=== PATIENT | female | born 1945 | race Caucasian/White ===

== ENCOUNTER → 2017-05-27 15:45 | Outpatient (CLI) | payer MEDICARE, BC ==
[~2017-05-27 15:45] MED LIST: ACETAMINOPHEN500 M1 PO; ADVAIR 100/501 DISK INH; BAYER CHEWABLE81 MG PO; BENTYL10 MG; BENTYL10 MG PO; COLACE100 MG PO; COSOPT EYE DROPS5 ML EACH EYE; DULCOLAX10 MG/SUPP RC; FLEXERIL10 MG PO; FLUTICASONE PRO16 GM NS; HYZAAR 100-12.51 TAB PO; LEVSIN/ANASP0.125 MG PO; LIPITOR40 MG PO; MACROBID100 MG PO; MIRALAX17 GM PO; MUCINEX600 MG PO; NEURONTIN 400400 MG; NEURONTIN 400400 MG PO; NITROSTAT0.4 MG; NITROSTAT0.4 MG SL; PLAVIX75 MG PO; PRILOSEC20 MG PO; REQUIP1 MG PO; RESTORIL15 MG PO; SENOKOT-S TABLE1 TAB PO; SYNTHROID150 MCG PO; TENORMIN25 MG PO; TRAVATAN Z2.5 ML EACH EYE; TYLENOL W/CODEI1 TAB PO; ULTRAM50 MG PO; VESICARE5 MG PO; XANAX0.5 MG PO
== END | disposition home or self-care (01) ==
LOC: D.CT 15:45
DX: H53.2 Diplopia (principal); M54.2 Cervicalgia; W19.XXXA Unspecified fall, initial encounter

== ENCOUNTER → 2017-12-08 09:19 | Outpatient (CLI) | payer MEDICARE, BC | END | disposition home or self-care (01) | LOC: D.CT 09:19 | DX: R10.9 Unspecified abdominal pain (principal); R63.4 Abnormal weight loss ==

== ENCOUNTER → 2018-02-15 08:42 | Outpatient (CLI) | payer MEDICARE, BC | END | disposition home or self-care (01) | LOC: D.LAB 08:42 → D.RAD 09:00 | DX: R11.2 Nausea with vomiting, unspecified (principal) ==

== ENCOUNTER → 2018-03-11 10:53 | Outpatient (CLI) | payer MEDICARE, BC | END | disposition home or self-care (01) | LOC: D.NM 10:53 | DX: R11.0 Nausea (principal); R10.13 Epigastric pain ==

== ENCOUNTER → 2019-06-05 10:37 | Outpatient (CLI) | payer MEDICARE, BC ==
[2019-06-05 11:30] LABS: ALBUMIN 3.4 g/dL (3.4-5.0); BILIRUBIN - DIRECT 0.19 mg/dL (0.00-0.30); BILIRUBIN - INDIRECT 0.5 mg/dL (0.00-1.00); BILIRUBIN - TOTAL 0.69 mg/dL (0.2-1.3); PROTEIN - SERUM 6.3 g/dL (6.4-8.2)
[2019-06-06 10:10] LABS: HEPATITIS C ANTIBODY 0.1 S/CO RAT (0.0-0.9)
== END | disposition home or self-care (01) ==
LOC: D.LAB 10:37 → D.US 11:30
PROVIDERS: ATTEND Internal Medicine Gastroenterology
DX: R10.13 Epigastric pain (principal); R11.2 Nausea with vomiting, unspecified

== ENCOUNTER → 2019-06-14 08:06 | Outpatient (CLI) | payer MEDICARE, BC | END | disposition home or self-care (01) | LOC: D.NM 08:06 | PROVIDERS: ATTEND Internal Medicine Gastroenterology | DX: R10.31 Right lower quadrant pain (principal); R11.0 Nausea; K82.9 Disease of gallbladder, unspecified ==

== ENCOUNTER → 2019-07-03 08:28 | Outpatient (CLI) | payer MEDICARE, BC ==
[~2019-07-03 08:28] MED LIST changes: +ANTIVERT12.5 MG PO; +CYCLOBENZAPRINE10 MG PO; +HYDROCODON-ACE1 EA10 PO; +NEURONTIN 300300 MG PO; +PEPCID40 MG PO; +PROTONIX40 MG PO; +SYNTHROID100 MCG PO; -SYNTHROID150 MCG PO; +TRAZODONE HCL150 MG PO
== END | disposition home or self-care (01) ==
LOC: D.CT 08:28
PROVIDERS: ATTEND Internal Medicine Gastroenterology
DX: R10.12 Left upper quadrant pain (principal)

== ENCOUNTER → 2019-07-13 09:00 | Outpatient (CLI) | payer MEDICARE, BC ==
[~2019-07-13 09:00] MED LIST changes: -HYDROCODON-ACE1 EA10 PO
== END | disposition home or self-care (01) ==
LOC: D.LAB 09:00
PROVIDERS: ATTEND Surgery
DX: R10.9 Unspecified abdominal pain (principal); R74.8 Abnormal levels of other serum enzymes

== ENCOUNTER 2019-08-07 10:06 | Inpatient (IN) | payer MEDICARE, BC ==
[~2019-08-07] VITALS: Ht 165.1 cm; Wt 88.7 kg
[~2019-08-07 10:06] MED LIST changes: -ANTIVERT12.5 MG PO; -CYCLOBENZAPRINE10 MG PO; -HYZAAR 100-12.51 TAB PO; +HYZAAR PO; -NEURONTIN 300300 MG PO; -PEPCID40 MG PO; -PROTONIX40 MG PO; -TRAZODONE HCL150 MG PO
[2019-08-07 11:11] LABS: BASOPHILS 0.4 % (0-2); EOSINOPHILS 3.7 % (0-7); HEMOGLOBIN 13.9 g/dL (12-16); IMMATURE GRANULOCYTES 0.1 % (0-5); LYMPHOCYTES 40.6 % (15-50); MCH 32.3 pg (26.0-34.0); MCHC 33.9 g/dL (31.0-37.0); MCV 95.1 fL (80.0-100.0); MEAN PLATELET VOLUME 10.1 fL (7.4-10.4); MONOCYTES 7.4 % (2-11); NEUTROPHILS 47.8 % (40-80); RBC 4.31 10x6/uL (4.00-5.40); RDW 13.4 % (11.5-14.5); WBC 10.6 10x3/uL (4.8-10.8)
[2019-08-07 11:17] LABS: PLATELET COUNT 281 10x3/uL (130-400)
[2019-08-07 11:19] LABS: ANION GAP 7.4 mmol/L (8-16); CALCIUM 9.2 mg/dL (8.5-10.1); CARBON DIOXIDE 34.6 mmol/L (21.0-32.0)
[2019-08-07] MEDS ORDERED: PROTONIX40 MG PO (12:14)
[2019-08-07] MEDS ORDERED: CYCLOBENZAPRINE10 MG PO (12:17)
[2019-08-07] MEDS ORDERED: TRAZODONE HCL150 MG PO (12:19)
[2019-08-07] MEDS ORDERED: NEURONTIN 300300 MG PO (12:22)
[2019-08-07] MEDS ORDERED: REQUIP1 MG PO (12:23)
[2019-08-07] MEDS ORDERED: ANTIVERT12.5 MG PO (12:24)
[2019-08-08] VITALS (36 sets, daily range): BP systolic 80–160; BP diastolic 39–76; BMI 29.1; BMI 32.6
[2019-08-08] MEDS ORDERED: PEPCID40 MG PO (06:02)
--- NOTE | 2019-08-08 11:20 | NUR ---
report recieved from tanesha duron.
--- NOTE | 2019-08-08 11:30 | NUR ---
patient arrived to unit.
--- NOTE | 2019-08-08 11:59 | NUR ---
WHEN PT ARRIVED WE WERE UNABLE TO OBTAIN BP R/T PT MOVING AROUND TOO MUCH AND BEING RESTLESS AND COULD NOT OBTAIN, WHEN PT FINALLY STARTED TO BE STILL BP CUFF WOULD NOT READ. ANESTHESIA AT BEDSIDE THE ENTIRE TIME. FINALLY OBTAINED BP AND IT WAS LOW, INTERVENTIONS TAKING PLACE, SEE VITAL FLOWSHEET AND MED FLOW FOR DETAILS. NEW ORDERS OBTAINED FOR PT TO GO TO ICU FOR BP SUPPORTIVE MEDICATIONS. PT IS ON DOPAMINE DRIP AT THIS TIME 5MG/KG/MIN. PT REMAINS AWAKE AND TALKATIVE JUST C/O PAIN IN HER ABDOMEN FROM THE PROCEDURE, UNABLE TO PROVIDE RELIEF AT THIS TIME BUT DID REPOSITION AND IT SEEMED TO HELP SLIGHTLY. BP IN LEFT LEG HAD BETTER READINGS COMPARED TO LEFT ARM HOWEVER PT REMAINS HYPOTENSIVE ON DRIP. WILL TRANSFER TO ICU AND CALL REPORT. AWARE AND AGREES. NO CURRENT NEEDS.
--- NOTE | 2019-08-08 13:00 | NUR ---
PATIENT EASILY AROUSES. EDUCATED ON PIPE INSTALLER. DOPAMINE INFUSION. NO DISTRESS. STATES PAIN IS UNDER CONTROL WITH PUMP. VSS. AFEBRILE. ZOFRAN GIVEN PER COMPLAINTS OF NAUSEA. FAMILY IS AT BEDSIDE. WENT OVER HOME MEDICATIONS WITH COUSIN EVLEYN. WILL CONTINUE TO MONITOR.
--- NOTE | 2019-08-08 15:25 | NUR ---
patient is alert and oriented. states pain is under control. no n/v. educated on what Ng tube is for. educated on why NPO. dopamine 10mcg. no distress. reassesment done. pulses palp. lungs CTA. bp 112/61. hr 57. 100% on 3 l nc. will continue to monitor pt.
--- NOTE | 2019-08-08 17:00 | NUR ---
PT IS RESTING. RELIEF OF PAIN. NO DISTRESS. NO CHANGES. PULSES PALP BILAT. LUNGS CTA. MANN 200. DOPAMINE OFF. BP STABLE. 66 HR. 3 L NC 100%. REPORT GIVEN TO EMILY. WILL CONTINUE TO MONITOR.
[2019-08-08 18:39] LABS: HEMATOCRIT 34.7 % (36.0-48.0); HEMOGLOBIN 11.8 g/dL (12-16)
--- NOTE | 2019-08-08 19:00 | NUR ---
PT ALERT, VOICES NEEDS, LUNGS CLEAR, O2 @ 3L VIA N/C, RIGHT PIV INTACT WITH DILAUDID AOC AIRSPACE CONTROL OFFICER AND NS @ 125 CC/HR, ABDOMINAL INCISION WITH DRSG C/D/I, MANN PATENT TO BSD, NGT TO LIS, NO DISTRESS NOTED
--- NOTE | 2019-08-08 21:00 | NUR ---
RESTING QUIETLY, VITALS STABLE, NO C/O
[2019-08-08 22:30] LABS: HEMATOCRIT 33.3 % (36.0-48.0); HEMOGLOBIN 11.3 g/dL (12-16)
--- NOTE | 2019-08-08 23:00 | NUR ---
PT AWAKENED CONFUSED, STATES SHE WAS HAVING A DREAM, REORIENTS EASILY, VITALS STABLE
[2019-08-09] VITALS (24 sets, daily range): BP systolic 120–175; BP diastolic 49–84; Ht 165.1 cm; Wt 88.7 kg
--- NOTE | 2019-08-09 01:00 | NUR ---
PT SLEEPING WITH NO DISTRESS, AROUSES EASILY, VITALS STABLE
--- NOTE | 2019-08-09 03:45 | NUR ---
PT AWAKE, PULLED OUT NGT AND MANN, STATES SHE IS SORRY, THAT SHE WAS HAVING A BAD DREAM, PT TEARFUL, VITALS STABLE, WILL CONT TO MONITOR
[2019-08-09 04:11] LABS: HEMATOCRIT 30.8 % (36.0-48.0); HEMOGLOBIN 10.4 g/dL (12-16); MCHC 33.8 g/dL (31.0-37.0); MCV 94.8 fL (80.0-100.0); MEAN PLATELET VOLUME 10.4 fL (7.4-10.4); PLATELET COUNT 271 10x3/uL (130-400); RBC 3.25 10x6/uL (4.00-5.40); RDW 13.5 % (11.5-14.5); WBC 23.4 10x3/uL (4.8-10.8)
[2019-08-09 04:17] LABS: ANION GAP 10.7 mmol/L (8-16); CALCIUM 8.7 mg/dL (8.5-10.1); CARBON DIOXIDE 29.5 mmol/L (21.0-32.0); POTASSIUM - SERUM 4.2 mmol/L (3.5-5.1)
[2019-08-09 04:53] LABS: LYMPHOCYTES 38 % (15-50); MONOCYTES 2 % (2-11); NEUTROPHILS 55 % (40-80); PLATELET ESTIMATE NORMAL
--- NOTE | 2019-08-09 05:30 | NUR ---
PT CALM, RESTING QUIETLY, GETS TEARFUL AT TIMES, REASSURED PT THAT IT WAS OKAY AND MD WOULD BE NOTIFIED, VITALS STABLE
--- NOTE | 2019-08-09 06:13 | NUR ---
PAGED DR CHARLES, CALL RETURNED, INFORMED HIM OF PT PULLING OUT NG TUBE AND MANN, INSTRUCTED NOT TO PUT NG TUBE BACK IN, HE WILL INFORM DR MOBLEY
--- NOTE | 2019-08-09 08:07 | NUR ---
PATIENT ALERT AND ORIENTED. VERY APOLOGETIC ABOUT REMOVING HER MANN AND NG TUBE. CL IN REACH. PULSE OX MONITOR REPOSITIONED. NO NEEDS AT THIS TIME. WILL CONTINUE TO MONITOR.
--- NOTE | 2019-08-09 09:55 | NUR ---
PATIENT HAS SAID SHE WOULD LIKE A BED BATH. LINENS CHANGED DUE TO A LEAK IN IV LINE. IV LINES, TELEMETRY WIRES, PULSE OX WIRES, AND BP HOSE REPOSITIONED. PATIENT ASSISTED WITH BEDPAN. UNABLE TO URINATE. SHE IS NOW RESTING ON HER BACK. CL IN REACH.MOUTH MOISTURIZER PROVIDED FOR DRY AND CRACKED LIPS. NO FURTHER NEEDS AT THIS TIME
--- NOTE | 2019-08-09 10:25 | NUR ---
PATIENT YELLING OUT HELP ME. PULSE OX WAS OFF HER EAR AND THE MACHINE WAS BEEPING. SHE ALSO THOUGHT HEARD HER COUSIN. THEN GOES SHE GUESSES SHE DIDN'T AND NOW WHAT DO WE DO. I TOLD HER WE CAN TAKE A BED BATH JUST TO GIVE ME A MIN. SHE WAS AGREEABLE TO THAT. CL IN REACH [facility]
--- NOTE | 2019-08-09 11:35 | NUR ---
UPDATED COUSIN ON THE PHONE. HAD THE PASSWORD. SAID SHE HASN'T BEEN UP HERE YET BECAUSE OF HER RA. WAS CONCERNED FOR PT REMOVING NG TUBE AND MANN. I EXPLAINED IT HAPPENED OFTEN AND WAS NO PROBLEM. SAID SHE WOULD BE UP HERE SHORTLY
--- NOTE | 2019-08-09 11:58 | NUR ---
PULSE OX REPOSITIONED TO READ. BP CUFF REPOSTIONED TO LEFT UPPER ARM FOR MORE ACCURATE BP. BP IN LEG WAS RECORDED AT 212/69. REPOSITIONED IT WAS 144/47. PATIENT JUST YELLED OUT THAT SHE WAS IN PAIN. I RESPONDED SHE COULD HIT THE GREEN BUTTON THAT THE PAIN BUTTON WAS LIT UP AND ABLE TO GIVE HER A DOSE. IT WAS ATTACHED TO THE RIGHT BED RAIL. SHE RESPONDED THAT SHE WASN'T ABLE TO REACH IT. I UNTIED IT AND HANDED IT TO HER. CL IN REACH. WCTM
--- NOTE | 2019-08-09 13:06 | NUR ---
BLADDER SCANNED PATIENT. REPORTED THERE WAS 698 ML IN THE BLADDER AND PATIENT HAS NOT URINATED SINCE 329 SINCE REMOVAL OF MANN OVERNIGHT TO DR MOBLEY. HE ORDERED ANOTHER MANN PLACED
--- NOTE | 2019-08-09 13:35 | NUR ---
PLACED MANN CATH. 2 ATTEMPTS. STERILE FIELD MAINTAINED. PATIENT TOLERATED PROCEDURE WELL. NO FURTHER NEEDS AT THIS TIME. CL IN REACH. WCTM
--- NOTE | 2019-08-09 15:08 | NUR ---
PATIENT REQUESTS SUPPLIES TO BRUSH TEETH. I WILL GIVE THEM WHEN LAB GETS OUT OF THE ROOM SO I CAN PROVIDE MINIMAL ASSIST.
--- NOTE | 2019-08-09 15:58 | NUR ---
BEDISDE REPORT RECIEVED. NO NEEDS OR DISTRESS NOTED AT THIS TIME. WILL CONT TO MONITOR.
[2019-08-09 16:02] LABS: HEMATOCRIT 27.5 % (36.0-48.0); HEMOGLOBIN 9.2 g/dL (12-16)
--- NOTE | 2019-08-09 17:00 | NUR ---
FAMILY AT BEDSIDE. NO NEEDS OR DISTRESS NOTED AT THIS TIME. WILL CONT TO MONITOR.
--- NOTE | 2019-08-09 18:26 | MORECARE ---
CASE MANAGEMENT DISCHARGE SUMMARY PATIENT: LAILA BUCKNER UNIT: [id number] ADM DATE: 08/08/19 AGE: 73 : 45 SEX: F ROOM/BED: D.2310 AUTHOR: MIKEY CASTILLO PHYSICIAN: REFERRING PHYSICIAN: ALAN MOBLEY MD DATE OF SERVICE: 08/09/19 Discharge Plan Patient Name: LAILA BUCKNER Facility: [facility]:[place] : 1945 Planned Disposition: Home Anticipated Discharge Date: Discharge Date: Expected LOS: Initial Reviewer: [email or web address] Initial Review Date: 08/08/2019 Generated: 08/09/19 7:25 pm Patient Name: LAILA BUCKNER Page [phone] at 1826 All edits/amendments must be made on the electronic document DICTATION DATE: 08/09/191824 INDUSTRIAL PSYCHOLOGY PROFESSOR: ERIN 08/09/191824 RPT#: [id number] DC DATE: STATUS: ADM IN [facility] [address] [place] [address] END OF REPORT
--- NOTE | 2019-08-09 18:34 | MORECARE ---
CASE MANAGEMENT DISCHARGE SUMMARY PATIENT: LAILA BUCKNER UNIT: [id number] ADM DATE: 08/08/19 AGE: 73 : 45 SEX: F ROOM/BED: D.2310 AUTHOR: ANNADOC PHYSICIAN: REFERRING PHYSICIAN: ALAN MOBLEY MD DATE OF SERVICE: 08/09/19 Discharge Plan Patient Name: LAILA BUCKNER Facility: [facility]:[place] : 1945 Planned Disposition: Home Anticipated Discharge Date: Discharge Date: Expected LOS: Initial Reviewer: [email or web address] Initial Review Date: 08/08/2019 Generated: 08/09/19 7:34 pm Comments DCP- Discharge Planning Updated by [email or web address]: Edita Lora on 08/09/19 5:[address] Patient Name: LAILA BUCKNER Admission Status: Urgent Accout number: [id number] Admission Date: 08-08-2019 : 1945 Admission Diagnosis: Attending: ALAN MOBLEY Current LOS: 1 Anticipated DC Date: Planned Disposition: Home Primary Insurance: MEDICARE A & B Discharge Planning Comments: CM met with patient to complete initial dc planning assessment. CM educated patient on the CM role and verbal consent given by patient to complete assessment. Patient lives at home alone where she is independent with her care. At discharge patient plans to return home and feels this is a safe discharge. CM discussed availability of home health, rehab services, and medical equipment. Patient is requesting a walker upon discharge. Patient denied any other known discharge needs at this time. CM will continue to follow and will assist as needed with dc plans/needs. Water Taxi Driver: Edita Lora DCPIA - Discharge Planning Initial Assessment Updated by [id number]: Edita Lora on 08/09/19 6:27 pm * Is the patient Alert and Oriented? Yes * How many steps to enter\exit or inside your home? * PCP [facility] * Pharmacy [facility] * Preadmission Environment Home Alone * ADLs Independent * Other Equipment REQUESTING A WALKER * List name and contact numbers for known caregivers / representatives who currently or will assist patient after discharge: LAVERNE MENDOZA [facility] [phone] * Verbal permission to speak to the caregivers and representatives has been obtained from the patient. N/A * Community resources currently utilized None * Additional services required to return to the preadmission environment? No * Can the patient safely return to the preadmission environment? Yes * Has this patient been hospitalized within the prior 30 days at any hospital? No Last DP export: 08/09/19 5:26 p Patient Name: LAILA BUCKNER Page [phone] at 1834 All edits/amendments must be made on the electronic document DICTATION DATE: 08/09/191833 WAREHOUSE SUPERVISOR 3RD SHIFT: ERIN 08/09/191833 RPT#: [id number] DC DATE: STATUS: ADM IN [facility] [address] [place] [address] END OF REPORT
--- NOTE | 2019-08-09 19:30 | NUR ---
PT ALERT, DISORIENTED, RIGHT PIV INTACT WITH NS @ 100CC/HR AND DILAUDID BOTANICAL TECHNICAL OFFICER, PT KEEPS ASKING HOW BOTANICAL TECHNICAL OFFICER PAIN BUTTON WORKS, CONTINUES TO HOLD BUTTON UP WAITING FOR IT TO LIGHT UP, MANN PATENT TO BSD, SCD'D TO BILAT LOWER LEGS, WILL CONT TO MONITOR
--- NOTE | 2019-08-09 20:10 | NUR ---
CALLED DR CHARLES, PT CONFUSED, PULLING OFF O2 AND B/P CUFF, CONT TO STARE AT PAIN BUTTON, SUPERVISOR ALUMINUM FABRICATION D/C'D AND PRN PAIN MED ORDERED
--- NOTE | 2019-08-09 22:00 | NUR ---
PT REMAINS DISORIENTED, VITALS STABLE, REORIENTED NEEDED
--- NOTE | 2019-08-09 23:25 | NUR ---
PT C/O ABDOMINAL PAIN, GIVEN DILAUDID 0.4 MG IVP, RESTING QUIETLY
[2019-08-10] VITALS (13 sets, daily range): BP systolic 110–194; BP diastolic 52–88
--- NOTE | 2019-08-10 01:00 | NUR ---
PT SLEEPING WITHOUT DISTRESS, WILL CONT TO MONITOR
--- NOTE | 2019-08-10 03:00 | NUR ---
PT RESTING QUIETLY, AROUSES EASILY, NO DISTRESS
--- NOTE | 2019-08-10 05:23 | NUR ---
PT AROUSES EASILY, STATES PAIN LEVEL IS BETTER, B/P 187/73, WILL NOTIFY MD
--- NOTE | 2019-08-10 07:00 | NUR ---
BEDISDE REPORT RECEIVED. ASSESSMENT COMPLETED PER FLOWSHEET, SEE FLOWSHEET FOR ADDITIONAL INFORMATION. VSS. NO NEEDS OR DISTRESS NOTED AT THIS TIME. WILL CONT TO MONITOR.
--- NOTE | 2019-08-10 09:00 | NUR ---
BEDSIDE REPORT RECEIVED. ASSESSMENT COMPLETED PER FLOWSHEET, SEE FLOWSHEET FOR ADDITIONAL INFORMATION. NO NEEDS NOTED AT THIS TIME. WILL CONT TO MONITOR.
[2019-08-10 10:00] LABS: HEMATOCRIT 27.1 % (36.0-48.0); HEMOGLOBIN 9.2 g/dL (12-16); MCH 32.1 pg (26.0-34.0); MCHC 33.9 g/dL (31.0-37.0); MCV 94.4 fL (80.0-100.0); MEAN PLATELET VOLUME 10.7 fL (7.4-10.4); PLATELET COUNT 219 10x3/uL (130-400); RBC 2.87 10x6/uL (4.00-5.40); RDW 13.7 % (11.5-14.5); WBC 26.7 10x3/uL (4.8-10.8)
[2019-08-10 10:06] LABS: CALCIUM 8.4 mg/dL (8.5-10.1); CARBON DIOXIDE 30.2 mmol/L (21.0-32.0); CHLORIDE - SERUM 106 mmol/L (98-107); GLUCOSE 96 mg/dL (74-106); POTASSIUM - SERUM 3.6 mmol/L (3.5-5.1); SODIUM 143 mmol/L (136-145)
[2019-08-10 10:10] LABS: CALC OSMOLALITY 283 mosm/kg (275-300); CREATININE - SERUM 0.6 mg/dL (0.6-1.3); UREA NITROGEN 11 mg/dL (7-18); eGFR NON AFRICAN AMERICAN > 90 mL/min (90-120)
[2019-08-10 10:35] LABS: LYMPHOCYTES 18 % (15-50); MONOCYTES 7 % (2-11); NEUTROPHILS 75 % (40-80); PLATELET ESTIMATE NORMAL
--- NOTE | 2019-08-10 13:15 | NUR ---
IV THERAPY IN RIGHT FOREARM. INTACT WITH ORANGE CAPS. DISORIENTED TO TIME. S1, S2 PRESENT. LUNGS CTA. ON 3 L OF OXYGEN. BOWEL SOUNDS HYPOACTIVE X4. MANN CATH IN PLACE BECAUSE OF RETENTION. WEAKNESS IN ALL EXTREMITIES. SKIN INTACT EXCEPT FOR ABDOMINAL INCISION. NO FURTHER NEEDS AT THIS TIME. CL IN REACH. WCTM
--- NOTE | 2019-08-10 14:38 | MORECARE ---
CASE MANAGEMENT DISCHARGE SUMMARY PATIENT: LAILA BUCKNER UNIT: [id number] ADM DATE: 08/08/19 AGE: 73 : 45 SEX: F ROOM/BED: D.2210 AUTHOR: ANNA,DOC PHYSICIAN: REFERRING PHYSICIAN: ALAN MOBLEY MD DATE OF SERVICE: 08/10/19 Discharge Plan Patient Name: LAILA BUCKNER Facility: [facility]:[place] : 1945 Planned Disposition: Home Anticipated Discharge Date: Discharge Date: Expected LOS: Initial Reviewer: [email or web address] Initial Review Date: 08/08/2019 Generated: 08/10/19 3:38 pm Comments DCP- Discharge Planning Updated by [email or web address]: Edita Lora on 08/10/19 1:[address] CM spoke with patient regarding DME patient stated she had no preference regarding DME company. [employer] signed. CM will continue to follow and assist as needed with discharge planning / needs DCP- Discharge Planning Updated by [email or web address]: Edita Lora on 08/09/19 5:[address] Patient Name: LAILA BUCKNER Admission Status: Urgent Accout number: [id number] Admission Date: 08-08-2019 : 1945 Admission Diagnosis: Attending: ALAN MOBLEY Current LOS: 1 Anticipated DC Date: Planned Disposition: Home Primary Insurance: MEDICARE A & B Discharge Planning Comments: CM met with patient to complete initial dc planning assessment. CM educated patient on the CM role and verbal consent given by patient to complete assessment. Patient lives at home alone where she is independent with her care. At discharge patient plans to return home and feels this is a safe discharge. CM discussed availability of home health, rehab services, and medical equipment. Patient is requesting a walker upon discharge. Patient denied any other known discharge needs at this time. CM will continue to follow and will assist as needed with dc plans/needs. Senior Sas Developer: Edita Lora DCPIA - Discharge Planning Initial Assessment Updated by [email or web address]: Edita Lora on 08/09/19 6:27 pm * Is the patient Alert and Oriented? Yes * How many steps to enter\exit or inside your home? * PCP [facility] * Pharmacy [facility] * Preadmission Environment Home Alone * ADLs Independent * Other Equipment REQUESTING A WALKER * List name and contact numbers for known caregivers / representatives who currently or will assist patient after discharge: LAVERNE MENDOZA [facility] - [phone] * Verbal permission to speak to the caregivers and representatives has been obtained from the patient. N/A * Community resources currently utilized None * Additional services required to return to the preadmission environment? No * Can the patient safely return to the preadmission environment? Yes * Has this patient been hospitalized within the prior 30 days at any hospital? No Last DP export: 08/09/19 5:34 p Patient Name: LAILA BUCKNER Page [phone] at 1438 All edits/amendments must be made on the electronic document DICTATION DATE: 08/10/191437 ANTHROPOLOGY AND ARCHEOLOGY INSTRUCTOR: ERIN 08/10/191437 RPT#: [id number] DC DATE: STATUS: ADM IN [facility] [address] [place] [address] END OF REPORT
--- NOTE | 2019-08-10 15:53 | NUR ---
SCD MACHINE PROVIDED AND PATIENT HOOKED UP.
--- NOTE | 2019-08-10 19:33 | NUR ---
IN ROOM GIVING PATIENT REPORT. PATIENT HAD JUST PULLED OUT HER IV. GRABBED HER MANN AND WENT TO RIP THAT OUT WELL. SAID SHE WAS IN "THE DEEP BLUE" CONFUSED TO SITUATION AND TIME. SCD'S ON. WITNESSED BY ALVAREZ TENA LPN.
--- NOTE | 2019-08-10 23:00 | NUR ---
ALERT, ORIENTED TO SELF. REPORTS ABDOMINAL PAIN AND CHRONIC LEG PAIN BILATERALLY, 9. 22G IV SITED TO RIGHT WRIST, 1ST ATTEMPT. PT SITTING UP ON SIDE OF BED, CLEAR GREEN EMESIS EXPELLED. BLOOD PRESSURE 210/91. PULSE 92. RN NOTIFIED. WILL WILL ASSESS AND MONITOR CLOSELY.
--- NOTE | 2019-08-11 01:30 | NUR ---
BP 167/65, PULSE 76. DENIES PAIN/NAUSEA AT THIS TIME, WILL CONTINUE TO MONITOR.
[2019-08-11 04:00] VITALS: BP 185/60
--- NOTE | 2019-08-11 04:12 | NUR ---
I have reviewed this patient and I concur with the Shift Assessment completed by the Licensed Practical Nurse today this shift.
[2019-08-11 06:08] LABS: BASOPHILS 0.1 % (0-2); HEMATOCRIT 22.8 % (36.0-48.0); HEMOGLOBIN 7.9 g/dL (12-16); IMMATURE GRANULOCYTES 0.3 % (0-5); LYMPHOCYTES 21.8 % (15-50); MCH 32.4 pg (26.0-34.0); MCHC 34.6 g/dL (31.0-37.0); MCV 93.4 fL (80.0-100.0); MONOCYTES 6.6 % (2-11); NEUTROPHILS 70.2 % (40-80); PLATELET COUNT 214 10x3/uL (130-400); RBC 2.44 10x6/uL (4.00-5.40); RDW 13.5 % (11.5-14.5)
[2019-08-11 06:13] LABS: WBC 17.7 10x3/uL (4.8-10.8)
[2019-08-11 06:21] LABS: CALC OSMOLALITY 287 mosm/kg (275-300); CARBON DIOXIDE 28.6 mmol/L (21.0-32.0); CHLORIDE - SERUM 108 mmol/L (98-107); CREATININE - SERUM 0.6 mg/dL (0.6-1.3); GLUCOSE 96 mg/dL (74-106); SODIUM 145 mmol/L (136-145); UREA NITROGEN 11 mg/dL (7-18); eGFR NON AFRICAN AMERICAN > 90 mL/min (90-120)
--- NOTE | 2019-08-11 07:26 | NUR ---
SLEEPING,WITHOUT SIGNS OF DISTRESS.RESP NON LABORED.
--- NOTE | 2019-08-11 08:22 | OP ---
PATIENT NAME: LAILA BUCKNER MEDICAL RECORD: [id number] :[birth year] LOCATION:D.[facility] [id number] ADMISSION DATE:08/08/19 SURGEON: DUTCH MOBLEY MD DATE OF OPERATION: 08/08/2019 PREOPERATIVE DIAGNOSES: 1. Chronic peptic ulcer disease. 2. Disorders of the gallbladder. 3. Hypertension. 4. Hypercholesterolemia. 5. Carotid artery stenosis. POSTOPERATIVE DIAGNOSES: 1. Chronic peptic ulcer disease. 2. Disorders of the gallbladder. 3. Hypertension. 4. Hypercholesterolemia. 5. Carotid artery stenosis. PROCEDURE: 1. Vagotomy and antrectomy with Billroth II anastomosis. 2. Cholecystectomy. SURGEON: Dutch Mobley MD REPORT OF PROCEDURE: The patient's abdomen was prepped and draped in sterile fashion. A midline incision was made in the upper abdomen. Electrocautery was used to dissect through the subcutaneous tissues and fascia until we entered the abdominal cavity. The falciform ligament was taken down and clamps were placed proximally and distally before this was excised and the tissues were tied off with 3-0 silk ties. We took down the short gastrics on the distal aspect of the greater curvature of the stomach using a Harmonic scalpel. Electrocautery was used to stop any bleeding that was found. We then approached the lesser curvature of the stomach and took down the lesser omentum again using the Harmonic scalpel. We continued this dissection to about snf up the patient's stomach. We then transected the stomach using a 75 green load EYAD stapler. We continued our dissection down to the proximal duodenum and got past the pylorus. Once we were completely past the pylorus and the first portion of the duodenum, then we transected this portion of bowel using a 75 green load EYAD stapler and sent this distal portion of the stomach off for specimen. We then took down the triangular ligament on the left lobe of the liver and was able to mobilize this to right side. The tissues around the patient's esophagus were dissected free. We were able to get a Caitlyn around the distal esophagus and eventually dissected out the right and the left vagus nerves. These were clipped proximally and distally and ligated and a section of each one of these nerves was sent off to pathology where it was determined that this was nerve tissue consistent with vagus nerve. At this point, we noticed some bleeding in the patient's left upper quadrant. As we inspected this, there was a small tear to the patient's spleen. Porfirio was applied to the area and then multiple lap sponges were placed in the left upper quadrant. We then approached the patient's gallbladder. We took the gallbladder off in a dome down fashion using electrocautery to take the gallbladder off of the liver and dissecting down to the cystic artery and cystic duct. These 2 structures were clipped proximally and distally and ligated in standard fashion. We then treated the liver bed with electrocautery to stop any bleeding that was noted. We irrigated out the OPERATIVE REPORT [id number] BUCKNERLAILA abdomen thoroughly with normal saline. A loop of jejunum was brought in a retrocolic fashion through the lateral transverse mesocolon on the left. The jejunum was brought up to the anterior aspect of the gastric remnant and was attached using a 75 green load EYAD stapler. The openings in the stomach and the small bowel were closed with a 30 blue load TA stapler. We then oversewed the staple lines. The patient had an NG tube in place and this was advanced down into the afferent limb of the small bowel where the openings of the NG tube traversed the gastric and enteric anastomosis. At this point, we filled the abdomen up with fluid and instilled air through the NG tube and saw no evidence of a leak at our anastomosis. At this point, we inspected the patient's left upper quadrant and there did not appear to be any significant bleeding present with just a small amount of ooze from the tear in the spleen. I elected to keep the spleen. Another round of the Porfirio was applied to the area. At this point, the midline fascia was closed with running #1 loop PDS times 2. The subcutaneous tissues were irrigated out thoroughly and reapproximated with interrupted 3-0 Vicryl and the skin was closed with dee. COMPLICATIONS: Splenic injury. CONDITION: Stable. ANESTHESIA: General endotracheal. BLOOD LOSS: 400 mL. TRANSINT:[id number] Voice Confirmation ID: [id number] DOCUMENT ID: [id number] DUTCH MOBLEY MD at 0822 CC: CLAUDIA YAO MD and ADINA CISNEROS [id number] DICTATION DATE: 08/08/191000 HAND II TUBE BENDER: 08/08/19 1233 ADM IN [facility] [address] [place] [address]
[2019-08-11 08:26] VITALS: BP 112/40
--- NOTE | 2019-08-11 09:52 | NUR ---
STARTED PT K+ WHEN PT RETURNED FROM RADIOLOGY, PT LYING IN BED, NO S/S OF DISTRESS CONTINUE WITH PLAN OF CARE
--- NOTE | 2019-08-11 11:02 | NUR ---
NUTRITION F/U PT REMAINS NPO. NO CURRENT NUTRITION SUPPORT. WILL PROVIDE DIET WHEN ORDERED. MONITOR PO INTAKE. ASSIST WITH NUTRITION SUPPORT IF NEEDED. RD FOLLOWING
[2019-08-11 13:19] VITALS: BP 187/48
[2019-08-11 17:35] VITALS: BP 197/71
--- NOTE | 2019-08-11 18:41 | NUR ---
PT PULLED OUT IV AGAIN. GAVE ATIVAN FOR AGITATION AND RESTLESSNESS. PLACED RANJEET ALARM ON BED. PT RESTING IN BED. NO C/O PAIN. NO S/S OF ACUTE DISTRESS NOTED. CALL LIGHT IN REACH. PT DENIES ANY NEEDS AT THIS TIME.
[2019-08-11 20:30] VITALS: BP 130/76
[2019-08-12 00:42] VITALS: BP 120/68
[2019-08-12 04:00] VITALS: BP 112/61
[2019-08-12 05:01] LABS: BASOPHILS 0.2 % (0-2); EOSINOPHILS 1.9 % (0-7); HEMATOCRIT 23.7 % (36.0-48.0); IMMATURE GRANULOCYTES 0.4 % (0-5); LYMPHOCYTES 26.5 % (15-50); MCH 31.7 pg (26.0-34.0); MCHC 33.8 g/dL (31.0-37.0); MEAN PLATELET VOLUME 9.8 fL (7.4-10.4); PLATELET COUNT 249 10x3/uL (130-400); RBC 2.52 10x6/uL (4.00-5.40); RDW 13.8 % (11.5-14.5)
[2019-08-12 05:13] LABS: WBC 13.1 10x3/uL (4.8-10.8)
[2019-08-12 05:17] LABS: CALC OSMOLALITY 293 mosm/kg (275-300); CALCIUM 8.4 mg/dL (8.5-10.1); CARBON DIOXIDE 25.3 mmol/L (21.0-32.0); CHLORIDE - SERUM 111 mmol/L (98-107); CREATININE - SERUM 0.6 mg/dL (0.6-1.3); GLUCOSE 89 mg/dL (74-106); POTASSIUM - SERUM 3.4 mmol/L (3.5-5.1); SODIUM 148 mmol/L (136-145); eGFR NON AFRICAN AMERICAN > 90 mL/min (90-120)
[2019-08-12 05:20] LABS: UREA NITROGEN 14 mg/dL (7-18)
[2019-08-12 08:12] VITALS: BP 142/36
--- NOTE | 2019-08-12 09:43 | NUR ---
PT CONFUSED TO SITUATION. BREATH SOUNDS CLEAR BILAT. IV TO RIGHT FOREARM, SALINE LOCKED. MIDLINE INCISION TO ABDOMEN, OPEN TO AIR, NO REDDNESS OR DRAINAGE NOTED. PT REPORTING NO PAIN AT THIS TIME. BED LOW, CALL LIGHT IN REACH. NO OTHER NEEDS AT THIS TIME.
[2019-08-12 12:04] VITALS: BP 138/82
--- NOTE | 2019-08-12 13:19 | NUR ---
PT SLEEPING, NO SIGNS OF DISTRESS.
[2019-08-12 16:06] VITALS: BP 128/46; BP 186/60
--- NOTE | 2019-08-12 16:42 | NUR ---
SPOKE WITH PT NEXT OF KIN, SHE WANTED US TO BE AWARE THAT WHEN PT IS DISCHARGED SHE WILL BE A SELF CARE. SHE DOES NOT HAVE ANY ROOMMATES OR IN HOME CAREGIVERS FOR ASSISTANCE.
--- NOTE | 2019-08-12 20:05 | NUR ---
GETTING OOB CAUSING BED ALARM TO ACTIVATE. ALERT AND ORIENTED TO SELF, TIME AND SITUATION. CONFUSED TO PLACE. FORGETFUL. IRRITABLE WITH STAFF WHEN REMINDED TO USE CALL [place] AND STAFF ATTEMPTED TO WALK WITH PT TO BR. GAIT IS UNSTEADY. SALINE LOCK NOTED TO RT FOREARM. NOT WEARING O2. REFUSES SCDS. MIDLINE ABD INCISION NOTED WITH SHARIFA X19 OPEN TO AIR. DENIES PAIN. NPO EXCEPT ICE CHIPS. DENIES PAIN. SR ELEVATED X2. CL IN REACH. BED ALARM IN USE FOR PT SAFETY.
[2019-08-12 20:10] VITALS: BP 123/72
[2019-08-13 00:23] VITALS: BP 171/69
--- NOTE | 2019-08-13 00:38 | NUR ---
HAS GOTTEN OOB SEVERAL TIMES SO FAR WITHOUT CALLING FOR ASSISTANCE. NONCOMPLIANT WITH USE OF C.L. BED ALARM IN USE.
[2019-08-13 04:15] VITALS: BP 170/88; BP 209/62
[2019-08-13 05:37] LABS: BASOPHILS 0.2 % (0-2); EOSINOPHILS 2.1 % (0-7); HEMATOCRIT 25.1 % (36.0-48.0); HEMOGLOBIN 8.2 g/dL (12-16); IMMATURE GRANULOCYTES 0.8 % (0-5); LYMPHOCYTES 20.3 % (15-50); MCH 30.7 pg (26.0-34.0); MCHC 32.7 g/dL (31.0-37.0); MEAN PLATELET VOLUME 9.8 fL (7.4-10.4); MONOCYTES 9.5 % (2-11); NEUTROPHILS 67.1 % (40-80); PLATELET COUNT 283 10x3/uL (130-400); RBC 2.67 10x6/uL (4.00-5.40); RDW 13.5 % (11.5-14.5); WBC 14.6 10x3/uL (4.8-10.8)
[2019-08-13 05:53] LABS: CALC OSMOLALITY 290 mosm/kg (275-300); CALCIUM 8.5 mg/dL (8.5-10.1); CARBON DIOXIDE 23.5 mmol/L (21.0-32.0); CHLORIDE - SERUM 110 mmol/L (98-107); CREATININE - SERUM 0.6 mg/dL (0.6-1.3); GLUCOSE 90 mg/dL (74-106); POTASSIUM - SERUM 3.1 mmol/L (3.5-5.1); SODIUM 146 mmol/L (136-145); UREA NITROGEN 13 mg/dL (7-18); eGFR NON AFRICAN AMERICAN > 90 mL/min (90-120)
[2019-08-13 06:09] VITALS: BP 209/62
--- NOTE | 2019-08-13 07:05 | NUR ---
PT RESTING IN BED WITH EYES CLOSED, EASILY AROUSED TO SPEECH. ALERT AND ORIENTED WITH NO S/S OF DISTRESS. IV LOCATED TO RIGHT FOREARM CURRENTLY SALINE LOCKED. DENIES ANY NEEDS AT THIS TIME, WILL CONT TO MONITOR.
[2019-08-13 08:18] VITALS: BP 189/55
--- NOTE | 2019-08-13 12:00 | NUR ---
ASSISTED PT TO BATHROOM AND BACK TO BED, NO S/S OF DISTRESS AND DENIES NEEDS AT THIS TIME, WILL CONT TO MONITOR.
[2019-08-13 16:14] VITALS: BP 114/60
[2019-08-13 19:00] VITALS: BP 164/60
--- NOTE | 2019-08-13 19:20 | NUR ---
LYING IN BED. ALERT AND ORIENTED BUT CONFUSED AT TIMES. RESP NONLABORED. MIDLINE INCISION WITH SHARIFA OPEN TO AIR. STATES SHE HAD A FEW SMALL BMS TODAY THAT WERE LOOSE. DENIES PAIN. BRUISES NOTED TO BUE. NOT WEARING SCDS. SALINE LOCK NOTED TO RT FOREARM. BED ALARM ON FOR PT SAFETY. GAIT IS SLIGHTLY UNSTEADY. STATES SHE HOPES SHE CAN GO HOME TOMORROW. SR ELEVATED X1. CL IN REACH. NO DISTRESS.
[2019-08-14] VITALS: BP 180/70
--- NOTE | 2019-08-14 00:30 | NUR ---
B/P ELEVATED. MEDICATED WITH LOPRESSOR PRN. SEE MAR. LYING IN BED. DENIES PAIN . ASYMPTOMATIC. CL IN REACH. BED ALARM ON.
[2019-08-14 04:00] VITALS: BP 160/68
[2019-08-14 04:47] LABS: BASOPHILS 0.2 % (0-2); EOSINOPHILS 1.4 % (0-7); HEMATOCRIT 26.3 % (36.0-48.0); IMMATURE GRANULOCYTES 0.8 % (0-5); LYMPHOCYTES 24.5 % (15-50); MCH 31.5 pg (26.0-34.0); MCHC 34.2 g/dL (31.0-37.0); MEAN PLATELET VOLUME 9.4 fL (7.4-10.4); MONOCYTES 9.4 % (2-11); NEUTROPHILS 63.7 % (40-80); PLATELET COUNT 292 10x3/uL (130-400); RBC 2.86 10x6/uL (4.00-5.40); RDW 13.5 % (11.5-14.5); WBC 16.1 10x3/uL (4.8-10.8)
[2019-08-14 05:00] LABS: CARBON DIOXIDE 26.7 mmol/L (21.0-32.0); CHLORIDE - SERUM 108 mmol/L (98-107); CREATININE - SERUM 0.6 mg/dL (0.6-1.3); GLUCOSE 109 mg/dL (74-106); SODIUM 145 mmol/L (136-145); eGFR NON AFRICAN AMERICAN > 90 mL/min (90-120)
[2019-08-14 05:02] LABS: CALC OSMOLALITY 288 mosm/kg (275-300); UREA NITROGEN 9 mg/dL (7-18)
[2019-08-14 05:04] LABS: POTASSIUM - SERUM 2.8 mmol/L (3.5-5.1)
--- NOTE | 2019-08-14 06:02 | NUR ---
NOTIFIED DR CHARLES OF CRITICAL POTASSIUM 2.8. NEW ORDER NOTED FOR ELECTROLYTE PROTOCOL AND TO GIVE KCL RIDERS.
--- NOTE | 2019-08-14 07:30 | NUR ---
PATIENT BED ALARM GOING OFF. ASSISTED PATIENT TO THE BATHROOM AND BACK. REFUSED NONSKID SOCKS AND TO PUT HER SANDALS ON. BED ALARM TURNED BACK ON AFTER PATIENT BACK IN BED. CL IN REACH. NO FURTHER NEEDS AT THIS TIME.
[2019-08-14 08:11] VITALS: BP 118/64
--- NOTE | 2019-08-14 09:47 | NUR ---
ON PHONE WITH EVELYN. WORRIED THAT NO ONE IS STAYING WITH HER. WORRIED ABOUT HER MENTAL STABILITY AND CONFUSION. DOESN'T FEEL PATIENT WOULD BE SAFE GOING HOME. WOULD RATHER REHAB FOR PATIENT. SAYS PATIENT DOESN'T SEEM LIKE SHE IS MENTALLY HERSELF.
--- NOTE | 2019-08-14 10:04 | NUR ---
SPOKE WITH DR MOBLEY ABOUT WHAT EVELYN HAD TALKED TO ME ABOUT. GOT A ONE TIME DOSE OF 800 MG MAGNESIUM SINCE HER LEVEL IS 1.7. ALSO REQUESTED TYLENOL FOR TEMP OF 100.6. HE SAID HE WOULD PUT IN AN ORDER FOR ME.
--- NOTE | 2019-08-14 10:23 | NUR ---
BED ALARM GOING OFF. PATIENT IN BATHROOM. ASSISTED PATIENT BACK TO BED WHEN DONE. LOWERED HOB LIKE PATIENT WANTED. STATES SHE WOULD LIKE A NAP WHILE WAITING ON EVELYN TO ARRIVE. CL IN REACH. BED ALARM ON. WILL CONTINUE TO MONITOR.
[2019-08-14] MEDS ORDERED: HYDROCODON-ACE1 EA10 PO (12:58)
[2019-08-14 14:15] VITALS: BP 115/60
--- NOTE | 2019-08-14 14:17 | NUR ---
Nutrition follow-up: Visited with pt re: post-gastrectomy diet REviewed diet restrictions with pt and provided pt with printed diet handout and RDN name and phone number. Pt with good understanding of information provided. RDN following.
--- NOTE | 2019-08-14 15:24 | MORECARE ---
CASE MANAGEMENT DISCHARGE SUMMARY PATIENT: LAILA BUCKNER UNIT: [id number] ADM DATE: 08/08/19 AGE: 73 : 45 SEX: F ROOM/BED: D.2210 AUTHOR: MIKEY CASTILLO PHYSICIAN: REFERRING PHYSICIAN: ALAN MOBLEY MD DATE OF SERVICE: 08/14/19 Discharge Plan Patient Name: LAILA BUCKNER Facility: [facility]:[place] : 1945 Planned Disposition: Home Anticipated Discharge Date: Discharge Date: Expected LOS: Initial Reviewer: [email or web address] Initial Review Date: 08/08/2019 Generated: 08/14/19 4:23 pm Comments DCP- Discharge Planning Updated by [email or web address]: Luna Hernandez on 08/14/19 2:[address] PATIENT DISCHARGING HOME, DENIES ANY NEEDS. FAMILY AT BEDSIDE. IMM SERVED AND EXPLAINED DCP- Discharge Planning Updated by [email or web address]: Edita Lora on 08/10/19 1:[address] CM spoke with patient regarding DME patient stated she had no preference regarding DME company. JHONATAN signed. CM will continue to follow and assist as needed with discharge planning / needs DCP- Discharge Planning Updated by [email or web address]: Edita Lora on 08/09/19 5:[address] Patient Name: LAILA BUCKNER Admission Status: Urgent Accout number: [id number] Admission Date: 08-08-2019 : 1945 Admission Diagnosis: Attending: ALAN MOBLEY Current LOS: 1 Anticipated DC Date: Planned Disposition: Home Primary Insurance: MEDICARE A & B Discharge Planning Comments: CM met with patient to complete initial dc planning assessment. CM educated patient on the CM role and verbal consent given by patient to complete assessment. Patient lives at home alone where she is independent with her care. At discharge patient plans to return home and feels this is a safe discharge. CM discussed availability of home health, rehab services, and medical equipment. Patient is requesting a walker upon discharge. Patient denied any other known discharge needs at this time. CM will continue to follow and will assist as needed with dc plans/needs. Echocardiography Radiology Technologist: Edita Lora DCPIA - Discharge Planning Initial Assessment Updated by [email or web address]: Edita Lora on 08/09/19 6:27 pm * Is the patient Alert and Oriented? Yes * How many steps to enter\exit or inside your home? * PCP SAMI * [facility] * Preadmission Environment Home Alone * ADLs Independent * Other Equipment REQUESTING A WALKER * List name and contact numbers for known caregivers / representatives who currently or will assist patient after discharge: LAVERNE MENDOZA [facility] - [phone] * Verbal permission to speak to the caregivers and representatives has been obtained from the patient. N/A * Community resources currently utilized None * Additional services required to return to the preadmission environment? No * Can the patient safely return to the preadmission environment? Yes * Has this patient been hospitalized within the prior 30 days at any hospital? No Coverage Notice Reviewer: [email or web address] Brody Hernandez Notice Issued Date-Time: 08/14/2019 14:45 Notice Type: IM Discharge Notice Notice Delivered To: Patient Relationship to Patient: Pastry Sous Chef Name: Delivery Method: HAND - Hand Delivered Kinga Days: Prior Verbal Notification: Recipient Understood Notice: Yes Recipient Signature: Yes Med Rec Note Co-signed by Attending: Coverage Notice Comment: Last DP export: 08/10/19 1:38 p Patient Name: LAILA BUCKNER Page [id number] at 1524 All edits/amendments must be made on the electronic document DICTATION DATE: 08/14/191522 WELDING ENGINEER: ERIN 08/14/191522 RPT#: [id number] DC DATE: STATUS: ADM IN [facility] [address] [place] [address] END OF REPORT
--- NOTE | 2019-08-14 15:56 | MORECARE ---
CASE MANAGEMENT DISCHARGE SUMMARY PATIENT: LAILA BUCKNER UNIT: [id number] ADM DATE: 08/08/19 AGE: 73 : 45 SEX: F ROOM/BED: D.2210 AUTHOR: ANNADOC PHYSICIAN: REFERRING PHYSICIAN: ALAN MOBLEY MD DATE OF SERVICE: 08/14/19 Discharge Plan Patient Name: LAILA UBCKNER Facility: [facility]:[place] : 1945 Planned Disposition: Home Anticipated Discharge Date: Discharge Date: Expected LOS: Initial Reviewer: [email or web address] Initial Review Date: 08/08/2019 Generated: 08/14/19 4:55 pm Comments DCP- Discharge Planning Updated by [email or web address]: Luna Hernandez on 08/14/19 2:[address] WALKER ORDER AND SENT TO [facility] DCP- Discharge Planning Updated by [email or web address]: Luna Hernandez on 08/14/19 2:[address] PATIENT DISCHARGING HOME, DENIES ANY NEEDS. FAMILY AT BEDSIDE. IMM SERVED AND EXPLAINED DCP- Discharge Planning Updated by [email or web address]: Edita Lora on 08/10/19 1:[address] CM spoke with patient regarding DME patient stated she had no preference regarding DME company. JHONATAN signed. CM will continue to follow and assist as needed with discharge planning / needs DCP- Discharge Planning Updated by [email or web address]: Edita Lora on 08/09/19 5:[address] Patient Name: LAILA BUCKNER Admission Status: Urgent Accout number: [id number] Admission Date: 08-08-2019 : 1945 Admission Diagnosis: Attending: ALAN MOBLEY Current LOS: 1 Anticipated DC Date: Planned Disposition: Home Primary Insurance: MEDICARE A & B Discharge Planning Comments: CM met with patient to complete initial dc planning assessment. CM educated patient on the CM role and verbal consent given by patient to complete assessment. Patient lives at home alone where she is independent with her care. At discharge patient plans to return home and feels this is a safe discharge. CM discussed availability of home health, rehab services, and medical equipment. Patient is requesting a walker upon discharge. Patient denied any other known discharge needs at this time. CM will continue to follow and will assist as needed with dc plans/needs. Plant Engineering Supervisor: Edita Geno DCPIA - Discharge Planning Initial Assessment Updated by [email or web address]: Edita Lora on 08/09/19 6:27 pm * Is the patient Alert and Oriented? Yes * How many steps to enter\exit or inside your home? * PCP BAHRAINI * Pharmacy [facility] * Preadmission Environment Home Alone * ADLs Independent * Other Equipment REQUESTING A WALKER * List name and contact numbers for known caregivers / representatives who currently or will assist patient after discharge: LAVERNE MENDOZA [facility] [phone] * Verbal permission to speak to the caregivers and representatives has been obtained from the patient. N/A * Community resources currently utilized None * Additional services required to return to the preadmission environment? No * Can the patient safely return to the preadmission environment? Yes * Has this patient been hospitalized within the prior 30 days at any hospital? No External Providers External Provider: [facility] Next Contact Date: Service Request Date: Service Type: Resolution: Reviewer: Comments: Coverage Notice Reviewer: [email or web address] Brody Hernandez Notice Issued Date-Time: 08/14/2019 14:45 Notice Type: IM Discharge Notice Notice Delivered To: Patient Relationship to Patient: Nurse Behavioral Health [facility] Name: Delivery Method: HAND - Hand Delivered Kinga Days: Prior Verbal Notification: Recipient Understood Notice: Yes Recipient Signature: Yes Med Rec Note Co-signed by Attending: Coverage Notice Comment: Last DP export: 08/14/19 2:24 p Patient Name: LAILA BUCKNER Page [id number] at 1556 All edits/amendments must be made on the electronic document DICTATION DATE: 08/14/191554 DRIP PUMPER: ERIN 08/14/19 4604 RPT#: [id number] DC DATE: STATUS: ADM IN [facility] [address] [place] [address] END OF REPORT
--- NOTE | 2019-08-14 16:18 | NUR ---
IV REMOVED WITH TIP INTACT. DISCHARGE INSTRUCTIONS GIVEN. PATIENT AND COUSIN VIOLA VERBALIZED UNDERSTANDING. AN ORDER FOR A WALKER WAS CALLED IN TO [facility] WITH INSTRUCTIONS WITH WHERE TO GO. WHEELED OUT BY [place] BY [facility] GLUE MAKER FROM [facility]
--- NOTE | 2019-08-17 08:13 | MORECARE ---
CASE MANAGEMENT DISCHARGE SUMMARY PATIENT: LAILA BUCKNER UNIT: [id number] ADM DATE: 08/08/19 AGE: 73 : 45 SEX: F ROOM/BED: D.2210 AUTHOR: ANNADOC PHYSICIAN: REFERRING PHYSICIAN: ALAN MOBLEY MD DATE OF SERVICE: 08/17/19 Discharge Plan Patient Name: LAILA BUCKNER Facility: [facility]:[place] : 1945 Planned Disposition: Home Anticipated Discharge Date: Discharge Date: 08/14/2019 Expected LOS: 0 Initial Reviewer: [email or web address] Initial Review Date: 08/08/2019 Generated: 08/17/19 9:13 am Comments DCP- Discharge Planning Updated by [id number]: Luna Hernandez on 08/14/19 2:[address] WALKER ORDER AND SENT TO [facility] DCP- Discharge Planning Updated by [id number]: Luna Hernandez on 08/14/19 2:[address] PATIENT DISCHARGING HOME, DENIES ANY NEEDS. FAMILY AT BEDSIDE. IMM SERVED AND EXPLAINED DCP- Discharge Planning Updated by [email or web address]: Edita Lora on 08/10/19 1:[address] CM spoke with patient regarding DME patient stated she had no preference regarding DME company. JHONATAN signed. CM will continue to follow and assist as needed with discharge planning / needs DCP- Discharge Planning Updated by [id number]: Edita Lora on 08/09/19 5:[address] Patient Name: LAILA BUCKNER Admission Status: Urgent Accout number: [id number] Admission Date: 08-08-2019 : 1945 Admission Diagnosis: Attending: ALAN MOBLEY Current LOS: 1 Anticipated DC Date: Planned Disposition: Home Primary Insurance: MEDICARE A & B Discharge Planning Comments: CM met with patient to complete initial dc planning assessment. CM educated patient on the CM role and verbal consent given by patient to complete assessment. Patient lives at home alone where she is independent with her care. At discharge patient plans to return home and feels this is a safe discharge. CM discussed availability of home health, rehab services, and medical equipment. Patient is requesting a walker upon discharge. Patient denied any other known discharge needs at this time. CM will continue to follow and will assist as needed with dc plans/needs. Program Development Manager: Edita Lora DCPIA - Discharge Planning Initial Assessment Updated by [email or web address]: Edita Geno on 08/09/19 6:27 pm * Is the patient Alert and Oriented? Yes * How many steps to enter\exit or inside your home? * PCP ICELANDIC * Pharmacy [facility] * Preadmission Environment Home Alone * ADLs Independent * Other Equipment REQUESTING A WALKER * List name and contact numbers for known caregivers / representatives who currently or will assist patient after discharge: LAVERNE MENDOZA [facility] - [phone] * Verbal permission to speak to the caregivers and representatives has been obtained from the patient. N/A * Community resources currently utilized None * Additional services required to return to the preadmission environment? No * Can the patient safely return to the preadmission environment? Yes * Has this patient been hospitalized within the prior 30 days at any hospital? No Coverage Notice Reviewer: [id number] Brody Hernandez Notice Issued Date-Time: 08/14/2019 14:45 Notice Type: IM Discharge Notice Notice Delivered To: Patient Relationship to Patient: Exercise Planner Name: Delivery Method: HAND - Hand Delivered Kinga Days: Prior Verbal Notification: Recipient Understood Notice: Yes Recipient Signature: Yes Med Rec Note Co-signed by Attending: Coverage Notice Comment: Last DP export: 08/14/19 2:55 p Patient Name: LAILA BUCKNER Page 42492 at 0813 All edits/amendments must be made on the electronic document DICTATION DATE: 08/17/19812 MEDICAL LAB TECH INSTRUCTOR: ERIN 08/17/19812 RPT#: [id number] DC DATE:08/14/19 STATUS: DIS IN [facility] [address] [place] [address] END OF REPORT
== END 2019-08-14 16:20 | disposition home or self-care (01) | DRG 327 ==
LOC: D.ICU 08-08 05:10 → D.SDCHOLD 08-08 05:10 → D.ICU 08-08 11:49 → D.MS 08-10 13:35
PROVIDERS: ADMIT Surgery; ATTEND Surgery
PROC: 0FT40ZZ Resection of Gallbladder, Open Approach (ICD-10-PCS; principal; 2019-08-08 07:15)
PROC: 008Q0ZZ Division of Vagus Nerve, Open Approach (ICD-10-PCS; 2019-08-08 07:15)
PROC: 0DT70ZZ Resection of Stomach, Pylorus, Open Approach (ICD-10-PCS; 2019-08-08 07:15)
DX: K27.7 Chronic peptic ulcer, site unspecified, without hemorrhage or perforation (principal); K81.0 Acute cholecystitis; D62 Acute posthemorrhagic anemia; I10 Essential (primary) hypertension; I65.23 Occlusion and stenosis of bilateral carotid arteries; E78.00 Pure hypercholesterolemia, unspecified; R33.9 Retention of urine, unspecified; E87.6 Hypokalemia

== ENCOUNTER 2019-09-04 15:29 | Inpatient (IN) | payer MEDICARE, BC ==
[~2019-09-04] VITALS: Ht 165.1 cm; Wt 58.1 kg
[~2019-09-04 15:29] MED LIST changes: +ANTIVERT12.5 MG PO; +CYCLOBENZAPRINE10 MG PO; +HYDROCODON-ACE1 EA10 PO; +NEURONTIN 300300 MG PO; +PEPCID40 MG PO; +PROTONIX40 MG PO; +TRAZODONE HCL150 MG PO
[2019-09-04 16:00] VITALS: BP 123/54
--- NOTE | 2019-09-04 16:55 | NUR ---
PT RECIEVED FROM ADMISSION STAFF VIA WHEELCHAIR. PT PRESENTS PALE. ABLE TO AMBULATE WITH STANDBY ASSIST. 22G SITED TO RIGHT FOREARM. RR EVEN AND UNALBORED. DENIES NEEDS OR PAIN AT THIS TIME. BED IN LOWEST POSITION. CALL LIGHT WITHIN REACH. WILL CONTINUE TO MONITOR.
[2019-09-04 17:49] VITALS: BP 123/54; BMI 21.3
--- NOTE | 2019-09-04 18:50 | NUR ---
EVENING ROUNDS COMPLETE. PT SITTING UP IN BED. FAMILY AT BEDSIDE. NO SIGNS OF DISTRESS. AAOX4. PT DENIES ANY PAIN OR NEEDS AT THIS TIME. CL IN REACH, BED IN LOWEST POSITION.
[2019-09-04 20:48] VITALS: BP 127/61
--- NOTE | 2019-09-04 21:00 | NUR ---
PT IV TO RIGHT WRIST INFILTRATED. REMOVED, TIP INTACT. PT TOLERATED WELL.
--- NOTE | 2019-09-04 22:00 | NUR ---
NEW IV STARTED IN PT R WRIST. PT TOLERATED WELL.
[2019-09-05 00:02] VITALS: BP 146/60; BP 181/52
[2019-09-05 04:30] VITALS: BP 162/53
[2019-09-05 05:40] LABS: BASOPHILS 0.5 % (0-2); EOSINOPHILS 3.4 % (0-7); HEMATOCRIT 33.6 % (36.0-48.0); HEMOGLOBIN 10.9 g/dL (12-16); IMMATURE GRANULOCYTES 0.1 % (0-5); LYMPHOCYTES 43.3 % (15-50); MCH 29.7 pg (26.0-34.0); MCHC 32.4 g/dL (31.0-37.0); MCV 91.6 fL (80.0-100.0); MONOCYTES 10.7 % (2-11); PLATELET COUNT 318 10x3/uL (130-400); RBC 3.67 10x6/uL (4.00-5.40); WBC 10.5 10x3/uL (4.8-10.8)
[2019-09-05 05:59] LABS: ANION GAP 10.3 mmol/L (8-16); CALCIUM 8.5 mg/dL (8.5-10.1); CARBON DIOXIDE 29.8 mmol/L (21.0-32.0); CREATININE - SERUM 1.2 mg/dL (0.6-1.3); POTASSIUM - SERUM 3.1 mmol/L (3.5-5.1)
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
--- NOTE | 2019-09-05 07:10 | NUR ---
PT RESTING, EYES CLOSED. RR EVEN AND UNLABORED. NO DISTRESS NOTED. BED IN LOWEST POSITION. CALL LIGHT WITHIN REACH. WILL CONTINUE TO MONITOR.
[2019-09-05 08:00] VITALS: BP 155/66
--- NOTE | 2019-09-05 10:16 | NUR ---
IN AND OUT CATHETER PROCEDURE PERFORMED. PT TOLERATED WELL. CLEAR, YELLOW URINE NOTED. STERILE URINE CULTURE LABELLED AND SENT TO LAB.
[2019-09-05 11:03] LABS: APPEARANCE CLEAR (CLEAR); BILIRUBIN NEGATIVE (NEGATIVE); COLOR YELLOW (YELLOW); GLUCOSE NEGATIVE (NEGATIVE); KETONE NEGATIVE (NEGATIVE); NITRITE NEGATIVE (NEGATIVE); PROTEIN NEGATIVE (NEGATIVE); SPECIFIC GRAVITY 1.015 (1.005-1.020); UROBILINOGEN NORMAL (NORMAL)
[2019-09-05 12:00] VITALS: BP 135/72
[2019-09-05 13:06] VITALS: Ht 165.1 cm; Wt 58.1 kg
[2019-09-05 16:00] VITALS: BP 126/76
--- NOTE | 2019-09-05 17:10 | NUR ---
OT NOTE: PT COMPLETED SUPINE TO SIT WITH MIN A. PT COMPLETED ADL MOB WITH MIN A. PT COMPLETED TOILETING TASKS WITH CGA. THANK YOU, MIKE BHAKTA
--- NOTE | 2019-09-05 18:50 | NUR ---
EVENING ROUNDS COMPLETE. PT LAYING IN BED. NO SIGNS OF DISTRESS. PT DENIES ANY PAIN OR NEEDS AT THIS TIME. CL IN REACH, BED IN LOWEST POSITION.
[2019-09-05 21:04] VITALS: BP 131/50
--- NOTE | 2019-09-05 22:53 | NUR ---
NEW IV STARTED AT THIS TIME TO LEFT HAND 22G. PT TOLERATED WELL. FLUIDS RESTARTED.
[2019-09-06 00:24] VITALS: BP 134/45
[2019-09-06 04:30] VITALS: BP 121/49
[2019-09-06 05:41] LABS: ANION GAP 8.1 mmol/L (8-16); CALCIUM 8.1 mg/dL (8.5-10.1); CARBON DIOXIDE 29.5 mmol/L (21.0-32.0); CREATININE - SERUM 0.9 mg/dL (0.6-1.3); POTASSIUM - SERUM 3.6 mmol/L (3.5-5.1)
--- NOTE | 2019-09-06 07:26 | NUR ---
REPORT RECIEVED. PT SITTING SEMI FOWLERS IN BED. RR EVEN AND UNLABORED. SHE HAS A L HAND PIV INFUSING D5/NS W/K @50. BED LOCKED AND IN LOWEST POSITION, CALL LIGHT WITHIN REACH. WILL CTM
--- NOTE | 2019-09-06 09:20 | NUR ---
REHAB PRESCREENING Rehab referral received and chart reviewed. Ms. Garcia will be a good candidate for acute inpatient rehab if she is agreeable to come. I will begin her screen and she will be accepted when approvals are in place and her physician feels she is appropriate for discharge. Thank you for this referral! Mackenzie Hyde, CANINE SERVICE TEACHER Rehab PD
--- NOTE | 2019-09-06 11:12 | NUR ---
OT NOTE: PT REPORTED FEELING BETTER TODAY. STATES THAT SHE IS HAVING SOME DIZZINESS, BUT ACTUALLY DESCRIBES IT MORE OF A PROPRIOCEPTIVE DISTURBANCE. AMB TO BATHROOM WITH MIN ASSIST; UNSTEADY GAIT AND LOB. TOILET HYGIENE WITH SPV; ABLE TO BRAD SLIPPERS WITH MIN ASSIST. AMBULTION IN HALLWAY APPROX 150 FT WITH BREAKER BOSS X 2 AND ASSIST WITH IV, AGAIN , UNSTEADY GAIT AND SEVERAL EPISODES OF LOB. VERY FATIGUED WHEN RETURNED TO ROOM. FREQ REPORTS OF WEAKNESS. RECOMMEND IP REHAB. PT SITTING UP IN CHAIR. INSTRUCTED PT TO CALL FOR ASSISTANCE. SALVATORE PEREIRA, OTR/L
[2019-09-06 13:36] VITALS: BP 128/52
--- NOTE | 2019-09-06 14:45 | NUR ---
I have reviewed this patient and I concur with the Shift Assessment completed by the Licensed Practical Nurse today this shift.
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
--- NOTE | 2019-09-06 15:43 | MORECARE ---
CASE MANAGEMENT DISCHARGE SUMMARY PATIENT: LAILA BUCKNER UNIT: [id number] ADM DATE: 09/05/19 AGE: 73 : 45 SEX: F ROOM/BED: D.2103 AUTHOR: MIKEY CASTILLO PHYSICIAN: REFERRING PHYSICIAN: ADINA CISNEROS MD DATE OF SERVICE: 09/06/19 Discharge Plan Patient Name: LAILA BUCKNER [facility] [facility] 1945 Planned Disposition: Inpatient Rehab Anticipated Discharge Date: 09/06/19 Discharge Date: Expected LOS: 1 Initial Reviewer: [email or web address] Initial Review Date: 09/06/2019 Generated: 09/06/19 4:42 pm Comments DCP- Discharge Planning Updated by [email or web address]: Bari Guerra on 09/06/19 2:[address] Patient Name: LAILA BUCKNER Encounter No: [id number] : 1945 Primary Insurance: MEDICARE A & B Anticipated DC Date: 09-06-2019 Planned Disposition: Inpatient Rehab External Planned Provider: [facility] INPATIENT REHAB DCP follow-up note: CM RECEIVED ORDER FOR INPATIENT REHAB PRESCREENING. CM MET WITH PT IN ROOM TO DISCUSS DISCHARGE PLANNING AND NEEDS. PT REPORTS LIVING AT HOME INDEPENDENTLY AND ALONE. PT HAS WALKER FROM [employer]. PT HAS NO OUTSIDE SERVICES ASSISTING IN THE HOME. CM DISCUSSED AVAILABILITY OF HOME HEALTH, REHAB SERVICES AND MEDICAL EQUIPMENT. CM DISCUSSED AVAILABILITY OF REHAB SERVICES, LOCATIONS AND PROVIDERS. PT WOULD LIKE REHAB AT [place] [facility] RECOMMENDED BY DR. CISNEROS.. CM SPOKE TO ELLIE OF INPATIENT REHAB, THEY PLAN TO ACCEPT PT TODAY FOR REHAB. PT NOTIFIED AND IN AGREEMENT WITH DISCHARGE TO INPATIENT REHAB. RN CM HOUSE NOTIFIED DR. CISNEROS; DISCHARGE RECEIVED. RN SHON HOUSE NOTIFIED ELLIE OF INPATIENT REHAB. [facility] INPATIENT REHAB READY TO ACCEPT PT AND NURSE REPORT, ROOM 1114-B. FLOW COORINATOR NURSE NOTIFIED. Bari Guerra, CASE MANAGEMENT DCPIA - Discharge Planning Initial Assessment Updated by [id number]: Bari Guerra on 09/06/19 3:36 pm * Is the patient Alert and Oriented? Yes * How many steps to enter\exit or inside your home? NONE * PCP DR. CISNEROS * Pharmacy [facility] IN [place] * Preadmission Environment Home Alone * ADLs Independent * Equipment Walker * Other Equipment [facility] - MEDICAL EQUIPMENT PROVIDER PREFERENCE * List name and contact numbers for known caregivers / representatives who currently or will assist patient after discharge: LAVERNE MENDOZA, YURY, * Verbal permission to speak to the caregivers and representatives has been obtained from the patient. N/A * Community resources currently utilized None * Please name any agencies selected above. NONE * Additional services required to return to the preadmission environment? No * Can the patient safely return to the preadmission environment? Yes * Has this patient been hospitalized within the prior 30 days at any hospital? No Patient Name: LAILA BUCKNER Page [id number] at 1543 All edits/amendments must be made on the electronic document DICTATION DATE: 09/06/191541 LAMINATION OPERATOR: ERIN 09/06/191541 RPT#: [id number] DC DATE: STATUS: ADM IN [facility] [address] [place] [address] END OF REPORT
--- NOTE | 2019-09-06 16:01 | NUR ---
REPORT CALLED TO [facility] IN REHAB. DC PAPERWORK GONE OVER AND SIGNED WITH PT. ALL QUESTIONS ANSWERED. PIV REMOVED X2 CATH TIP FULLY INTACT. TELEMETRY REMOVED AND RETURNED TO NON DESTRUCTIVE TESTING SUPERVISOR. PT TRANSPORTED TO REHAB VIA WHEELCHAIR. ALL VALUBLES REMOVED FROM ROOM AND TAKIN WITH PT.
== END 2019-09-06 16:04 | DRG 641 ==
LOC: D.M2 15:29 → OBSVTIME 15:29 → D.M2 09-05 14:49
PROVIDERS: ADMIT Family Medicine; ATTEND Family Medicine
DX: E86.0 Dehydration (principal); E87.6 Hypokalemia; I10 Essential (primary) hypertension; G89.4 Chronic pain syndrome; F41.8 Other specified anxiety disorders; R62.7 Adult failure to thrive; Z68.21 Body mass index [BMI] 21.0-21.9, adult; E03.9 Hypothyroidism, unspecified; E78.5 Hyperlipidemia, unspecified; N28.9 Disorder of kidney and ureter, unspecified

== ENCOUNTER 2019-09-06 16:23 | Inpatient (IN) | payer MEDICARE, BC ==
[~2019-09-06] VITALS: Ht 165.1 cm; Wt 49.9 kg
--- NOTE | 2019-09-06 17:18 | NUR ---
NEW ADMIT TO ROOM 1114B. ALERT AND ORIENTED. NO SKIN BREAK DOWN NOTED. RECENT INCISON TO ABD HEALED. CL IN REACH.
[2019-09-06 17:42] VITALS: BP 149/40
--- NOTE | 2019-09-06 20:00 | NUR ---
PATIENT RECEIVED SITTING UP IN BED. ASSESSMENT & VITAL SIGNS DONE. PAPERWORK SIGNED & IN CHART. NO C/O PAIN OR DISTRESS. BED LOW. ALARM ON. WILL CONTINUE TO MONITOR.
[2019-09-06 21:20] VITALS: BP 149/40
--- NOTE | 2019-09-07 03:55 | NUR ---
PT LYING IN BED ON LEFT SIDE EYES CLOSED RESTING. NO SIGNS OF DISTRESS NOTED. CL IN REACH
--- NOTE | 2019-09-07 04:27 | NUR ---
I have reviewed this patient and I concur with the Shift Assessment completed by the Licensed Practical Nurse today this shift.
[2019-09-07 06:32] LABS: BASOPHILS 0.3 % (0-2); EOSINOPHILS 1.5 % (0-7); HEMATOCRIT 35.9 % (36.0-48.0); HEMOGLOBIN 11.7 g/dL (12-16); IMMATURE GRANULOCYTES 0.1 % (0-5); LYMPHOCYTES 36.1 % (15-50); MCH 30.6 pg (26.0-34.0); MCHC 32.6 g/dL (31.0-37.0); MEAN PLATELET VOLUME 10.6 fL (7.4-10.4); PLATELET COUNT 276 10x3/uL (130-400); RBC 3.82 10x6/uL (4.00-5.40); RDW 14.7 % (11.5-14.5); WBC 11.4 10x3/uL (4.8-10.8)
[2019-09-07 07:20] LABS: ANION GAP 12.8 mmol/L (8-16); CALCIUM 8.5 mg/dL (8.5-10.1); CARBON DIOXIDE 25.2 mmol/L (21.0-32.0); CREATININE - SERUM 0.8 mg/dL (0.6-1.3)
[2019-09-07 08:00] VITALS: BP 192/51
--- NOTE | 2019-09-07 08:00 | NUR ---
I have reviewed this patient and I concur with the Shift Assessment completed by the Licensed Practical Nurse today this shift.
[2019-09-07 08:54] VITALS: Ht 165.1 cm; Wt 49.9 kg
--- NOTE | 2019-09-07 09:43 | NUR ---
PATIENT IS ALERT/ORIENT. IN REHAB ROOM. WORKING WITH PHYSICAL THERAPIST. VOICES NO PAIN/DISC THIS YEAR. WILL CONTINUE WITH PLAN OF CARE
--- NOTE | 2019-09-07 11:10 | NUR ---
OCCUPATIONAL THERAPIST IN ROOM. HELPING PATIENT WITH A SHOWER.
--- NOTE | 2019-09-07 14:49 | NUR ---
PATIENT IN REHAB ROOM. WORKING WITH PHYSICAL THERAPIST. DENIES ANY PAIN/DISC AT THIS TIME.
--- NOTE | 2019-09-07 17:40 | NUR ---
PATIENT HELPED INTO BATHROOM. STAND BY ASST WITH WHEELED WALKER. PATIENT ABLE TO DO OWN YELITZA CARE.
[2019-09-07 19:22] VITALS: BP 133/60
--- NOTE | 2019-09-07 19:39 | NUR ---
GREETED PATIENT AND INTRODUCED MYSELF HER NURSE. PATIENT IS SITTING ON SIDE OF BED FILLING OUT TOMORROWS MENU. RESPIRATIONS EVEN. NO S/S OF DISTRESS. CALL LIGHT IN REACH. DENIES ANY PAIN AT THIS TIME.
--- NOTE | 2019-09-08 00:44 | NUR ---
PT. RESTING QUIETLY WITH EYES CLOSED. RESPIRATIONS EVEN. NO S/S OF DISTRESS. SR UP X 2. BED IN LOWEST POSITION. CALL LIGHT IN REACH.
[2019-09-08 07:55] LABS: BASOPHILS 0.4 % (0-2); EOSINOPHILS 1.4 % (0-7); HEMATOCRIT 37.5 % (36.0-48.0); IMMATURE GRANULOCYTES 0.2 % (0-5); LYMPHOCYTES 39.9 % (15-50); MCV 93.8 fL (80.0-100.0); MEAN PLATELET VOLUME 10.7 fL (7.4-10.4); MONOCYTES 8.7 % (2-11); NEUTROPHILS 49.4 % (40-80); PLATELET COUNT 282 10x3/uL (130-400); RDW 14.6 % (11.5-14.5); WBC 10.8 10x3/uL (4.8-10.8)
[2019-09-08 07:57] VITALS: BP 146/56
--- NOTE | 2019-09-08 08:00 | NUR ---
PATIENT IS ALERT/ORIENT. C/O NAUSEA. PRN ZOFRAN GIVEN. CALL LIGHT WITHIN REACH. WILL CONTINUE WITH PLAN OF CARE
[2019-09-08 08:07] LABS: ANION GAP 12.1 mmol/L (8-16); CALCIUM 8.3 mg/dL (8.5-10.1); CARBON DIOXIDE 27.6 mmol/L (21.0-32.0); CREATININE - SERUM 0.9 mg/dL (0.6-1.3); POTASSIUM - SERUM 3.7 mmol/L (3.5-5.1)
--- NOTE | 2019-09-08 10:10 | NUR ---
PATIENT IN REHAB ROOM. WORKING WITH PHYSICAL THERAPIST. DENIES ANY PAIN/DISC. STATES NAUSEA HAS SUBSIDED.
--- NOTE | 2019-09-08 10:53 | NUR ---
The patient is up and participating in the gym. She requests to move to another room so that she can sleep. Staff will try to accomodate her request today.
--- NOTE | 2019-09-08 10:58 | NUR ---
PATIENT ADMITTED TO REHAB FROM ACUTE FLOOR. DR. CISNEROS IS HER PCP. DME AT HOME IS A WALKER FROM [employer]. DISCHARGE PLANS ARE FOR PATIENT TOP RETURN HOME AT DISCHARGE. WILL CONTINUE TO FOLLOW WITH PATIENT.
--- NOTE | 2019-09-08 16:56 | NUR ---
PATIENT MOVED TO A DIFFERENT ROOM DUE C/O NOT BEING ABLE TO SLEEP DUE TO ROOM MATE CALLING OUT ALL NIGHT LONE
[2019-09-08 19:17] VITALS: BP 181/47
--- NOTE | 2019-09-08 19:23 | NUR ---
AWAKE AND ALERT. RESTING IN BED WITH RESPIRATIONS UNLABORED. NO ACUTE DISTRESS NOTED. INCISION TO ABDOMEN HEALING AND CLOSED. MAGY REMAINS SLIGHTLY RED. SHE STATES IT IS STILL A LITTLE TENDER. NO ACUTE DISTRESS NOTED. CALL LIGHT IN REACH.
--- NOTE | 2019-09-08 23:18 | NUR ---
SLEEPING WITH RESPIRATIONS UNLABORED. NO DISTRESS NOTED. CALL LIGHT IN REACH.
--- NOTE | 2019-09-09 01:12 | NUR ---
CONTINUES SLEEPING WITH RESPIRATIONS UNLABORED. NO DISTRESS NOTED. CALL LIGHT IN REACH.
--- NOTE | 2019-09-09 06:14 | NUR ---
QUIET HOURS. STATES SHE RESTED WELL TONIGHT. NO ACUTE CHANGES IN CONDITION THIS SHIFT. NO DISTRESS NOTED.
[2019-09-09 07:46] VITALS: BP 187/58
--- NOTE | 2019-09-09 07:46 | NUR ---
PT SITTING UP EATING BREAKFAST, DENIES NEEDS. WCTM.
--- NOTE | 2019-09-09 08:27 | NUR ---
PT AM MEDS ADMINISTERED. PT REZA SENA. CASS.
--- NOTE | 2019-09-09 18:11 | NUR ---
PT ATTEMPTED TO EAT AND WAS STILL UNABLE. PT HAS NO APPETITIE. WILL NOTIFY DR. ODELL.
[2019-09-09 19:14] VITALS: BP 89/41
--- NOTE | 2019-09-09 19:18 | NUR ---
AWAKE AND ALERT. RESTING IN BED WITH RESPIRATIONS UNLABORED. TALKING WITH FAMILY MEMBER. BP 89/41. WILL RECHECK LATER THIS SHIFT. SHE STATES "IT RUNS LOW ALL THE TIME." WILL CONTINUE TO MONITOR. NO DISTRESS NOTED. CALL LIGHT IN REACH.
--- NOTE | 2019-09-10 00:51 | NUR ---
SLEEPING WITH NO DISTRESS NOTED. CALL LIGHT IN REACH.
--- NOTE | 2019-09-10 02:16 | NUR ---
AWAKE AND HAD JUST USED THE BATHROOM. NO NEEDS VOICED. NO DISTRESS NOTED. CALL LIGHT IN REACH.
--- NOTE | 2019-09-10 06:22 | NUR ---
QUIET HOURS. NO ACUTE CHANGES IN CONDITION THIS SHIFT. RESTING IN BED WITH NO DISTRESS NOTED. CALL LIGHT IN REACH.
--- NOTE | 2019-09-10 09:43 | NUR ---
PT RESTING IN BED. PT STILL HAS NO APPETITE. PT DENIES NEEDS AT THIS TIME. WCTM.
[2019-09-10 10:08] VITALS: BP 124/52
[2019-09-10 18:58] VITALS: BP 122/34
--- NOTE | 2019-09-10 19:02 | NUR ---
AWAKE AND ALERT. RESTING IN BED WITH RESPIRATIONS UNLABORED. TALKING WITH FAMILY MEMBER. NO ACUTE DISTRESS NOTED. CALL LIGHT IN REACH.
--- NOTE | 2019-09-10 23:58 | NUR ---
RESTING QUIETLY IN BED WITH RESPIRATIONS UNLABORED. NO DISTRESS NOTED.
--- NOTE | 2019-09-11 02:48 | NUR ---
CONTINUES SLEEPING WITH RESPIRATIONS UNALBORED. NO DISTRESS NOTED. CALL LIGHT IN REACH.
[2019-09-11 06:23] LABS: BASOPHILS 0.3 % (0-2); EOSINOPHILS 1.7 % (0-7); HEMATOCRIT 35.5 % (36.0-48.0); HEMOGLOBIN 11.4 g/dL (12-16); IMMATURE GRANULOCYTES 0.1 % (0-5); LYMPHOCYTES 43.4 % (15-50); MCH 30.1 pg (26.0-34.0); MCHC 32.1 g/dL (31.0-37.0); MCV 93.7 fL (80.0-100.0); MEAN PLATELET VOLUME 10.4 fL (7.4-10.4); MONOCYTES 10.2 % (2-11); NEUTROPHILS 44.3 % (40-80); PLATELET COUNT 266 10x3/uL (130-400); RBC 3.79 10x6/uL (4.00-5.40); RDW 14.5 % (11.5-14.5); WBC 13.2 10x3/uL (4.8-10.8)
[2019-09-11 06:40] LABS: ANION GAP 11.8 mmol/L (8-16); CALCIUM 7.9 mg/dL (8.5-10.1); CARBON DIOXIDE 27.3 mmol/L (21.0-32.0); CREATININE - SERUM 0.8 mg/dL (0.6-1.3); POTASSIUM - SERUM 3.1 mmol/L (3.5-5.1)
[2019-09-11 07:45] VITALS: BP 171/61
[2019-09-11 19:05] VITALS: BP 137/56
--- NOTE | 2019-09-11 19:05 | NUR ---
BEDSIDE REPORT COMPLETE. PT SITTING UP IN BED WATCHING TV. ALERT AND ORIENTED X4. DENIES ANY NEEDS OR PAIN. NO SIGNS OF ACUTE DISTRESS NOTED. VS STABLE. SHIFT ASSESSMENT COMPLETE. ABDOMINAL INCISION VANESA. NO S/S OF INFECTION. CL IN REACH. FALL PRECAUTIONS IN PLACE. WILL CONTINUE TO MONITOR
--- NOTE | 2019-09-12 00:39 | NUR ---
QUIET HOURS. PT LYING IN BED EYES CLOSED RESTING QUIETLY. RR EVEN AND UNLABORED. CL IN REACH
--- NOTE | 2019-09-12 04:11 | NUR ---
PT LYING IN BED EYES CLOSED RESTING. NO SIGNS OF ACUTE DISTRESS NOTED. CL IN REACH
--- NOTE | 2019-09-12 06:42 | NUR ---
PT LYING IN ON RIGHT SIDE EYES CLOSED RESTING. RR EVEN AND UNLABORED. DENIES ANY NEEDS OR PAIN. CL IN REACH
--- NOTE | 2019-09-12 07:35 | NUR ---
PT AM MEDS ADMINISTERED. BP 194/67 SO MEDS ADMINISTERED EARLY. PT REZA NEEDS. WCTM.
[2019-09-12 08:09] VITALS: BP 194/67
--- NOTE | 2019-09-12 10:54 | NUR ---
Nutrition Follow-up: Chart reviewed. Noted patient started on Megace recently. Patient states that she felt like the Megace was working but when her potassium drops she gets really neaseated and can't eat much. States that she is trying but appetite is currently poor. She is drinking some of the Ensures. Diet: Regular + Chocolate Ensure TID PO intake: ~18% x last 12 meals recorded Last BM: 09/09/19 (reported by patient) Wt: 110# (09/07/19), no new wt. Labs, meds, and nursing skin assessment all reviewed. Continue current nutrition therapy. Continue megace as medically feasible. Enocurage PO intake. RD Following.
[2019-09-12 18:50] VITALS: BP 113/67
--- NOTE | 2019-09-12 18:50 | NUR ---
BEDSIDE REPORT COMPLETE. PT SITTING UP IN BED WATCHING TV. DENIES ANY NEEDS OR PAIN. NO SIGNS OF ACUTE DISTRESS NOTED. ABDOMINAL INCISION WITHOUT S/S OF INFECTION OPEN TO AIR. VS STABLE. SHIFT ASSESSMENT COMPLETE. CL IN REACH. FALL PRECAUTIONS IN PLACE. WILL CONTINUE TO MONITOR
--- NOTE | 2019-09-12 23:47 | NUR ---
QUIET HOURS. PT LYING IN BED ON LEFT SIDE EYES CLOSED RESTING QUIETLY. RR EVEN AND UNLABORED. CL IN REACH
--- NOTE | 2019-09-13 03:34 | NUR ---
PT LYING IN BED ON RIGHT SIDE EYES CLOSED RESTING. NO SIGNS OF ACUTE DISTRESS NOTED. CL IN REACH
--- NOTE | 2019-09-13 05:41 | NUR ---
PT LYING IN BED ALERT AND AWAKE. DENIES ANY NEEDS OR PAIN. RR EVEN AND UNLABORED. CL IN REACH
[2019-09-13 05:46] LABS: BASOPHILS 0.5 % (0-2); EOSINOPHILS 1.4 % (0-7); HEMATOCRIT 36.2 % (36.0-48.0); HEMOGLOBIN 11.6 g/dL (12-16); IMMATURE GRANULOCYTES 0.2 % (0-5); LYMPHOCYTES 45.6 % (15-50); MCH 29.7 pg (26.0-34.0); MCV 92.8 fL (80.0-100.0); MEAN PLATELET VOLUME 10.7 fL (7.4-10.4); MONOCYTES 11.1 % (2-11); NEUTROPHILS 41.2 % (40-80); PLATELET COUNT 258 10x3/uL (130-400); RDW 14.7 % (11.5-14.5); WBC 11.8 10x3/uL (4.8-10.8)
[2019-09-13 06:04] LABS: CALCIUM 8.1 mg/dL (8.5-10.1); CARBON DIOXIDE 24.7 mmol/L (21.0-32.0); CREATININE - SERUM 0.8 mg/dL (0.6-1.3)
[2019-09-13 06:07] LABS: POTASSIUM - SERUM 3.7 mmol/L (3.5-5.1)
[2019-09-13 07:48] VITALS: BP 181/60
--- NOTE | 2019-09-13 08:00 | NUR ---
SHIFT ASSMT COMPLETED.
--- NOTE | 2019-09-13 15:38 | NUR ---
CARE TEAM MEETING: PATIENT PROGRESSING WELL IN THERAPY TENATIVE DISCHARGE DATE IS 09/15/19. WILL CONTINUE TO FOLLOW WITH PATIENT
--- NOTE | 2019-09-13 19:54 | NUR ---
AWAKE AND ALERT. RESTING IN BED WITH RESPIRATIONS UNLABORED. NO DISTRESS NOTED. INCISION TO ABDOMEN HEALING. CALL LIGHTIN REACH.
[2019-09-13 21:32] VITALS: BP 160/61
--- NOTE | 2019-09-14 03:12 | NUR ---
SLEEPING WITH RESPIRATIONS UNLABORED. NO DISTRESS NOTED.
--- NOTE | 2019-09-14 06:16 | NUR ---
QUIET HOURS. NO ACUTE CHAGNES IN CONDITION THIS SHIFT. RESTING WITH NO DISTRESS NOTED.
--- NOTE | 2019-09-14 08:00 | NUR ---
SHIFT ASSMT COMPLETED,BREAKFAST GIVEN.
[2019-09-14 08:34] VITALS: BP 149/64
--- NOTE | 2019-09-14 12:00 | NUR ---
EATING LUNCH.C/O NAUSEA.BAG GIVEN.NO EMESIS NOTED.
--- NOTE | 2019-09-14 16:00 | NUR ---
DENIES NEEDS.RESTING QUIETLY.
--- NOTE | 2019-09-14 20:17 | NUR ---
AWAKE AND ALERT. RESTING IN BED WITH RESPIRATIONS UNLABORED. NO DISTRESS NOTED. CALL LIGHT IN REACH.
[2019-09-14 21:12] VITALS: BP 151/40
--- NOTE | 2019-09-15 02:09 | NUR ---
SLEEPING IN BED WITH RESPIRATIONS UNLABORED. NO DISTRESS NOTED. CALL LIGHT IN REACH.
--- NOTE | 2019-09-15 05:37 | NUR ---
QUIET HOURS. NO ACUTE CHANGES IN CONDITION THIS SHIFT. RESTING IN BED WITH NO DISTRESS NOTED. CALL LIGHT IN REACH.
[2019-09-15 08:00] VITALS: BP 188/83
--- NOTE | 2019-09-15 08:00 | NUR ---
PT UP IN WHEELCHAIR IN ROOM TOLERATING WELL CALL LIGHT IN REACH WILL MONITER
[2019-09-15] MEDS ORDERED: MEGACE400 MG/10 PO (08:16)
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
--- NOTE | 2019-09-15 09:34 | NUR ---
PATIENT DISCHARGING HOME TODAY. [facility] WILL PROVIDE THERAPY AT HOME. NO NEW DME NEEDED AT THIS TIME. DR. CISNEROS 09/21/19 @ 10:00. PATIENT CHOICE FORM (HAND OUT GIVEN) AND [facility] FORMS SIGNED, COPY GIVEN TO PATIENT AND FILED IN CHART. DISCHARGE INSTRUCTIONS FAXED TO PCP, HOME HEALTH AND REVIEWED WITH PATIENT PER HER NURSE.
--- NOTE | 2019-09-15 09:42 | NUR ---
PATIENT HAS CHOSEN [facility] INSTEAD OF [facility]
--- NOTE | 2019-09-15 13:00 | NUR ---
PT DISCHARGED TO HOME VIA WHEELCHAIR WITH DAUGHTER DISCHARGE SUMMARY AND MEDS REVIEWED NO QUESTIONS
== END 2019-09-15 14:51 | disposition home health service (06) | DRG 948 ==
LOC: D.REHAB 16:23
PROVIDERS: ADMIT Emergency Medicine; ATTEND Emergency Medicine
DX: R53.81 Other malaise (principal); K50.90 Crohn's disease, unspecified, without complications; M62.50 Muscle wasting and atrophy, not elsewhere classified, unspecified site; E86.9 Volume depletion, unspecified; E87.6 Hypokalemia; K27.9 Peptic ulcer, site unspecified, unspecified as acute or chronic, without hemorrhage or perforation; G62.9 Polyneuropathy, unspecified; G89.29 Other chronic pain; E78.5 Hyperlipidemia, unspecified; E03.9 Hypothyroidism, unspecified; D64.9 Anemia, unspecified; M19.90 Unspecified osteoarthritis, unspecified site; F41.8 Other specified anxiety disorders; I10 Essential (primary) hypertension; K57.90 Diverticulosis of intestine, part unspecified, without perforation or abscess without bleeding; R62.7 Adult failure to thrive

== ENCOUNTER → 2019-09-27 16:57 | Outpatient (CLI) | payer MEDICARE, BC ==
[2019-09-07 08:54] VITALS: BMI 18.3
[~2019-09-27 16:57] MED LIST changes: +ACETAMINOPHEN325 MG PO; +ALDACTONE25 MG PO; +DIFLUCAN100 MG PO; +LEVOFLOXACIN500 MG PO; +MEGACE400 MG/10 PO; +NAMENDA5 MG PO; +THERAGRAN M [BK1 TAB PO; +TIMOPTIC 0.5 % O5 ML EACH EYE; +TRUSOPT 2 % OPT10 ML EACH EYE
[2019-09-27 19:21] LABS: ALBUMIN 2.5 g/dL (3.4-5.0); ANION GAP 12.7 mmol/L (8-16); BILIRUBIN - TOTAL 0.52 mg/dL (0.2-1.3); CALCIUM 8.6 mg/dL (8.5-10.1); CARBON DIOXIDE 26.1 mmol/L (21.0-32.0); CREATININE - SERUM 1.1 mg/dL (0.6-1.3); POTASSIUM - SERUM 3.8 mmol/L (3.5-5.1); PROTEIN - SERUM 6.2 g/dL (6.4-8.2)
== END | disposition home or self-care (01) ==
LOC: D.LABREF 16:57
PROVIDERS: ATTEND Family Medicine
DX: Z09 Encounter for follow-up examination after completed treatment for conditions other than malignant neoplasm (principal)

== ENCOUNTER 2019-09-29 16:17 | Inpatient (IN) | payer MEDICARE, BC ==
[~2019-09-29] VITALS: Ht 165.1 cm; Wt 67.9 kg
--- NOTE | ~2019-09-29 | HEMODYNAMI ---
PATIENT:LAILA BUCKNER MEDICAL RECORD: [id number] : 45 LOCATION:[facility] D.2121 ADMISSION DATE: 09/29/19 Generatedon:09/30/20199:50 Patient name: LAILA BUCKNER Patient #: [id number] SSN: : 1945 Date of study: 09/30/2019 Page: Of Hemodynamic Procedure Report Patient Data Patient Demographics Procedure consent was obtained First Name: LAILA Gender: Female Last Name: DUDLEY : 1945 Patient #: [id number] Age: 73 year(s) Race: Additional ID: [id number] Contact details Address: [address] [place] [address] State: [place] City: [place] Zip code: [address] Past Medical History Allergies Allergen Reaction Date Comments Reported Penicillins 09/30/2019 Admission Admission Data Admission Date: 09/29/2019 Admission Time: 18:44 Room #: D.2121 Height (in.): 64.96 BSA: 1.75 (m2) Height (cm.): 165 BMI: 24.98 (kg/m2) Weight (lbs.): 149.92 Weight (kg.): 68 Lab Results Lab Result Date: 09/30/2019 Lab Result Time: 0:00 Biochemistry Name Units Result Min Max BUN mg/dl 15 --(--*-)-- 7 18 Creatinine mg/dl 1.1 --(--*-)-- 0.6 1.3 eGFR ml/min 51 *-(----)-- 90 120 NONAFRICAN CBC Name Units Result Min Max Hematocrit % 37.6 *-(----)-- 42 54 Hemoglobin g/dl 12.4 *-(----)-- 13.5 17.5 Procedure Procedure Types Cath Procedure Diagnostic Procedure LHC LHC w/Coronaries Peripheral Cath Diagnostic Procedure Team Foreman Peripheral Procedures Four Vessel Arteriogram Procedure Description Procedure Date Procedure Date: 09/30/2019 Procedure Start Time: 9:27 Procedure End Time: 9:48 Procedure Staff Name Function Ji Boland MD Performing Physician Mark Anthony Banerjee RN Nurse Rima Patel RT Scrub Karla Joe RT Monitor Humberto Dukes RT Railway Switch Operator Procedure Data Cath Procedure Fluoroscopy Diagnostic fluoroscopy Total fluoroscopy Time: 5.6 time: 5.6 min min Diagnostic fluoroscopy Total fluoroscopy dose: 338 dose: 338 mGy mGy Contrast Material Contrast Material Type Amount (ml) Isovue 300 79 Entry Location Entry Primary Successful Side Size Upsize Upsize Entry Closure Succes sful Closure Location (Fr) 1 (Fr) 2 (Fr) Remarks Device Remarks Femoral Right 5 Fr Exoseal artery Estimated blood loss: 5 ml Diagnostic catheters Device Type Used For End Catheter Placement MULTIPACK JL 4.0 5Fr Procedure catheter MULTIPACK 3DRC 5Fr Procedure catheter MULTIPACK Pigtail 5 Fr Procedure catheter DIAGNOSTIC AL1 5Fr Procedure catheter ([id number]) Procedure Complications No complications Procedure Medications Medication Administration Route Dosage Oxygen etCO2 Nasal cannula 2 l/min Lidocaine 2% added to field 20 Heparin Flush Bag added to field 2 bags (1000units/500ml NS) 0.9% NaCl I.V. 100 ml/hr Versed I.V. 1 mg Fentanyl I.V. 50 mcg Versed I.V. 1 mg Fentanyl I.V. 50 mcg Hemodynamics Rest BSA: 1.75 (m2) HGB: 12.4 (g/dl) O2 Consumption: Estimated: 171.56 (ml/min) O2 Co nsumption indexed: Estimated:98.03 (ml/min/m) Heart Rate: 87 (bpm) Pressure Samples Time Site Value (mmHg) Purpose Heart Use Rate(bpm) 9:40 LV 144/22,9 Snapshot 98 9:41 AO 110/47(71) Pullback 81 9:41 LV 76/8,10 Pullback 81 Gradients Valve Time Site 1 Site 2 Mean SEP/DFP Peak To Heart Use (mmHg) (sec/min) Peak Rate (mmHg) (bpm) Aortic 9:41 LV AO 0 5 0 81 76/8,10 110/47(71) Calculations Valve P-P Mean Valve Index Valve Source Name Gradient Area Flow (cm2) Aortic 0 0 0 0 Snapshots Pre Cath Intra NCS Post Cath Vital Signs Time Heart Resp SPO2 etCO2 NIBP Rhythm Pain Sedation Rate (ipm) (%) (mmHg) (mmHg) Status Level (bpm) 9:23:46 103 20 100 22.4 93/48(72) NSR w/ ST 0 (11) 10(A) Elevation , No pain 9:28:00 104 20 100 23.2 95/46(61) NSR w/ ST 0 (11) 10(A) Elevation , No pain 9:32:16 105 20 100 23.9 111/43(73) NSR w/ ST 0 (11) 10(A) Elevation , No pain 9:36:30 99 15 100 17.2 105/41(74) NSR w/ ST 0 (11) 10(A) Elevation , No pain 9:40:46 75 19 100 19.5 75/38(48) NSR w/ ST 0 (11) 10(A) Elevation , No pain 9:45:34 107 21 99 21.7 112/53(79) NSR w/ ST 0 (11) 10(A) Elevation , No pain Medications Time Medication Route Dose Verified Delivered Reason Notes Effe ctiveness by by 9:22:59 Oxygen etCO2 2 Ji Buffie used for Nasal l/min St Dusty Banerjee RN procedure cannula 9:23:16 Lidocaine 2% added 20ml Ji Ji for local to vial [facility] John anesthetic field MD HERRON 9:23:23 Heparin Flush added 2 Ji Buffie used for Bag to bags St Dusty Banerjee end user support specialist (1000units/500ml field HERRON NS) 9:23:32 0.9% NaCl I.V. 100 Ji Buffie Per ml/hr St Dusty Banerjee RN physician 9:27:38 Versed I.V. 1 mg Ji Buffie for St Dusty Banerjee RN sedation 9:27:45 Fentanyl I.V. 50 Ji Buffie for mcg St Dusty Banerjee RN sedation 9:35:23 Versed I.V. 1 mg Ji Buffie for [address] Dusty Banerjee RN sedation 9:35:27 Fentanyl I.V. 50 Ji [address]ulisa[address] for mcg [address] Dusty Banerjee RN sedation Procedure Log Time Note 8:46:09 Informed consent obtained and on chart 8:49:25 H&P Date Dictated: 09/30/2019 Within 30 days and on chart., New H&P dictated by physician.. 8:49:28 Patient NPO since Midnight. 8:49:42 Patient allergic to Penicillins 8:50:16 Patient Weight : 149.92 lbs 8:50:18 Patient Height : 64.96 inches 8:51:29 Lab Result : eGFR NONAFRICAN 51 ml/min 8:51:29 Lab Result : Creatinine 1.1 mg/dl 8:51:29 Lab Result : BUN 15 mg/dl 8:51:29 Lab Result : Hematocrit 37.6 % 8:51:29 Lab Result : Hemoglobin 12.4 g/dl 8:51:37 Diagnostic Cath Status : Elective 8:51:38 PCI Cath Status : Elective 8:54:17 Risk of Mortality: .4 8:54:23 Risk of blood transfusion: .2 8:54:26 Risk of YURI: 4.7 8:55:42 Stress Test: no; normal NSTEMI 8:55:53 ACC Patient presents with Unstable Angina CCS Anginal Class 2--Slight limitation of ordinary activity. 8:55:56 ACCPatient has been prescribed/administered the following anti-anginal medication within the last 2 weeks: None 8:56:00 Procedure Status Urgent Heart Cath (IP). 8:56:01 Time tracking: Call back (After hours or weekends) 8:56:10 Plan of Care:Hemodynamics will remain stable., Cardiac rhythm will remain stable., Comfort level will be maintained., Respiratory function will remain adequate., Patient/ family verbilizes understanding of procedure., Procedure tolerated without complication., Recovers from procedure without complications.. 8:59:55 Mark Anthony Banerjee RN sent for patient. Start room use. 9:05:55 Pt. states she is experiencing confusion, for example pt thinks that she has a dog toy on her bed, and is looking for items that are not there. 9:10:46 Patient received from Med II to CCL 1 Alert and oriented. Tansferred to table in Supine position. 9:10:48 Warm blankets applied, and jefferson hugger turned on for patient comfort. 9:10:48 Correct patient and procedure confirmed by team. 9:10:49 ECG and BP/O2 sat monitors applied to patient. 9:22:26 Vital chart was started 9:22:34 Baseline sample Acquired. 9:22:39 Full Disclosure recording started 9::46 Pre-procedure instructions explained to patient. 9:22:47 Pre-op teaching completed and patient verbalized understanding. 9:22:49 Family unavailable. 9:22:53 Is the patient allergic to Iodine/contrast media? No. 9:22:59 Oxygen 2 l/min etCO2 Nasal cannula was administered by Mark Anthony Banerjee RN; used for procedure; Verbal order read back and verified. 9:23:15 Was the patient premedicated? Yes 9:23:16 Lidocaine 2% 20ml vial added to field was administered by Ji Boland MD; for local anesthetic; Verbal order read back and verified. 9:23:17 Is patient on blood thinner?Yes 9:23:20 ACC The patient was administered the following blood thiners within the last 24 hours: ACCPlavix 9:23:23 Heparin Flush Bag (1000units/500ml NS) 2 bags added to field was administered by Mark Anthony Banerjee RN; used for procedure; Verbal order read back and verified. 9:23:23 Patient diabetic? No. 9:23:26 If diabetic: On Metformin? N/A 9:23:28 Patient not . Patient is over age 55. 9:23:31 Previous problem with sedation/anesthesia? No ? 9:23:32 0.9% NaCl 100 ml/hr I.V. was administered by Mark Anthony Banerjee RN; Per physician; Verbal order read back and verified. 9:23:32 Snore? No 9:23:34 Sleep apnea? No 9:23:35 Deviated septum? No 9:23:37 Opens mouth fully? Yes 9:23:38 Sticks out tongue? Yes 9:23:40 Airway obstruction? No ? 9:23:48 Dentures? Yes TOP OUT 9:24:13 Pre procedure: right dorsailis pedis pulse 1+ Palpable, but thready & weak; easily obliterated 9:24:18 Patient pain scale 0/10 ?. 9:24:30 IV patent on arrival in right antecubital with 0.9% NaCl at [facility]. 9:24:38 Lab results completed and on chart. 9:24:43 Alarms reviewed by R. N. 9:24:44 Sharps counted by scrub and verified by R.N. 9::49 Right groin area was prepped with chlora-prep and draped in sterile fashion 9:25:36 Rhythm: sinus rhythm , w/ ST elevation 9:26:04 --------ALL STOP TIME OUT------ 9:26:05 Final Timeout: patient, procedure, and site verified with staff and physician. All members of the team are in agreement. 9:26:08 Right groin site verified by team. 9:26:13 Fire Safety Assessment: A--An alcohol-based skin anteseptic being used preoperatively., C--Open oxygen or nitrous oxide is being used., D--An ESU, laser, or fiber-optic light is being used. 9:26:17 Physical assessment completed. ASA score P 2 - A patient with mild systemic disease as per Ji Boland MD. 9:26:45 3a) 45-59 Moderately reduced kidney function. 9:26:49 Maximum allowable contrast dose (3.7 X eGFR X 0.75)142 ml. 9:26:54 Sedation plan: IV Moderate Sedation Medication:Versed, Fentanyl 9:27:36 DIAGNOSTIC Multipack 5Fr catheter set ([id number]) opened to sterile field. 9:27:38 Versed 1 mg I.V. was administered by Mark Anthony Banerjee RN; for sedation; Verbal order read back and verified. 9:27:43 Procedure started. 9:27:45 Fentanyl 50 mcg I.V. was administered by Mark Anthony Banerjee RN; for sedation; Verbal order read back and verified. 9:27:53 Use device set Femoral Dx 9:27:55 ACIST Syringe (41537) opened to sterile field. 9:27:56 Bag Decanter (2002S) opened to sterile field. 9:27:57 Medline Cath Pack ([id number]) opened to sterile field. 9:27:58 ACIST Hand Control (90452) opened to sterile field. 9:27:59 ACIST Manifold (26874) opened to sterile field. 9:28:02 Zero performed for pressure channel P1 9:28:06 Tegaderm 4 x 4 (1626W) opened to sterile field. 9:28:08 SHEATH 5FR [place] (YNR351) opened to sterile field. 9:28:09 EMERALD Guide Wire (155-512) opened to sterile field. 9:28:13 Zero performed for pressure channel P1 9:28:35 A 5 Fr sheath was inserted into the Right Femoral artery 9:28:57 A MULTIPACK JL 4.0 5Fr catheter was advanced over the wire and used for Procedure. 9:29:23 LCA angiography performed. 9:30:17 ACCDominant side:Left 9:30:26 Catheter removed. 9:30:35 A MULTIPACK 3DRC 5Fr catheter was advanced over the wire and used for Procedure. 9:31:00 RCA angiography performed. 9:32:10 Right carotid angiography performed. 9:32:15 Left carotid angiography performed. 9:34:12 Right subclavian angiography performed 9:34:14 Left subclavian angiography performed 9:34:29 Catheter removed. 9:34:34 A MULTIPACK Pigtail 5 Fr catheter was advanced over the wire and used for Procedure. 9:35:23 Versed 1 mg I.V. was administered by Mark Anthony Banerjee RN; for sedation; Verbal order read back and verified. 9:35:27 Fentanyl 50 mcg I.V. was administered by Mark Anthony Banerjee RN; for sedation; Verbal order read back and verified. 9:36:38 Catheter removed. 9:37:03 UNABLE TO CROSS VALVE 9:37:49 A DIAGNOSTIC AL1 5Fr catheter ([id number]) was advanced over the wire and used for Procedure. 9:37:52 ROADRUNNER .035 260 glide wire (Q08079) opened to sterile field. 9:38:09 ROADRUNNER ADVANCED IN ATTEMPT TO CROSS VALVE 9:39:26 LV gram done using HOLLIDAY 9:39:41 Injector settings: Ml/sec: 5, Volume: 15, 9:41:25 EF : 25 % 9:41:28 LV hemodynamics recorded. 9:42:39 EXOSEAL 5Fr (EX500) opened to sterile field. 9:42:46 Procedure ended.(Physican Out) 9:42:54 Sheath removed intact; hemostasis achieved with Exoseal to the Right Femoral artery. 9:43:14 Fluoroscopy time 05.60 minutes. :43:18 Fluoroscopy dose: 338 mGy 9:43:18 Flurop Dose total: 338 9:43:24 Dose Area Product 43822 mGy/cm. 9:43:31 Contrast amount:Isovue 300 79ml. 9:43:35 Maximum allowable dose exceeded? No. 9:43:36 Sharps counted by scrub and verified by R.N. 9:43:44 Post right femoral artery:stable, soft, clean and dry 9:43:47 Post Procedure Pulses reassessed and unchanged 9:43:51 Post procedure: right dorsailis pedis pulse 1+ Palpable, but thready & weak; easily obliterated. 9:43:56 Post-procedure physical assessment completed. ASA score P 2 - A patient with mild systemic disease as per Ji Boland MD. 9:44:00 Post procedure rhythm: unchanged. 9:44:03 Estimated blood loss: 5 ml 9:44:05 Post procedure instruction explained to patient.Patient verbalizes understanding. 9:44:07 Patient needs reinforcement of post procedure teaching. 9:45:28 Procedure type changed to Cath procedure, Diagnostic procedure, LHC, [facility] w/Coronaries, Peripheral Cath Diagnostic Procedure, Team Foreman Peripheral Procedures, Four Vessel Arteriogram 9:47:28 Procedure and supply charges have been captured, reviewed, submitted and are correct. 9:47:34 Procedure Complication : No complications 9:47:37 Vital chart was stopped 9:47:45 [facility] Findings: MVD- will discuss options w/ pt 9:47:47 Operative report dictated upon procedure completion. 9:47:47 See physician's report for complete and final results. 9:47:50 Report given to [facility] II. 9:47:53 Patient transfered to [facility] II with Bed. 9:48:32 Procedure ended. 9:48:32 Full Disclosure recording stopped 9:48:49 ACC-PCI Only Patient was given prescriptions, or instructed by Ji Boland MD to start/continue the following medications upon discharge: Plavix 9:48:53 End room use (Document Last) Device Usage Item Name Manufacture Quantity Catalog Hospital Part Current Minimal L ot# / Number Charge Number Stock Stock Serial# Code ACIST Acist 1 58251 331213 494785 333736 20 Syringe Medical (61295) Systems Inc Bag Microtek 1 641149 61779 765552 5 Decanter Medical Inc. () Medline Medline 1 [id number] 532321 27522 549582 5 Cath Pack ([id number]) ACIST Hand Acist 1 22563 802587 875243 791521 5 Control Medical (19303) Systems Inc ACIST Acist 1 43093 687326 698125 625001 5 Manifold Medical (69912) Systems Inc Tegaderm 4 3M 1 1626W 674981 586690 794151 5 x 4 (1626W) SHEATH 5FR Terumo 1 HPL662 922088 151161 296832 5 [place] (LEY576) EMERALD Cardinal 1 502-455 991603 801451 066287 5 Guide Wire Health (502-455) MULTIPACK Cardinal 1 095286 5 JL 4.0 5Fr Health catheter MULTIPACK Cardinal 1 421251 5 3DRC 5Fr Health catheter MULTIPACK Cardinal 1 558724 5 Pigtail 5 Health Fr catheter DIAGNOSTIC Cardinal 1 [id number] 071232 510116 527213 15 AL1 5Fr Health catheter (032668H) [facility] 1 P15780 974765 260803 204401 5 .035 260 glide wire (L70789) EXOSEAL 5Fr Cardinal 1 EX500 635915 535267 936610 10 (EX500) Health DIAGNOSTIC Cardinal 1 PI5776 650795 31389 709951 30 Spotted 5Fr catheter set (WP0420) Signature Audit [place] Stage Time Signature Unsigned Intra-Procedure 09/30/2019 Karla Joe 9:49:25 AM RT(R) Intra-Procedure 09/30/2019 Mark Anthony Banerjee RN 9:49:46 AM Intra-Procedure 09/30/2019 Ji Adler 9:50:14 AM Dusty HERRON [facility] [address] [place] [address]
[~2019-09-29 16:17] MED LIST changes: -ACETAMINOPHEN325 MG PO; -ALDACTONE25 MG PO; -DIFLUCAN100 MG PO; -LEVOFLOXACIN500 MG PO; -NAMENDA5 MG PO; -THERAGRAN M [BK1 TAB PO; -TIMOPTIC 0.5 % O5 ML EACH EYE; -TRUSOPT 2 % OPT10 ML EACH EYE
--- NOTE | 2019-09-29 16:44 | NUR ---
FSBS= 76 MG/DL
[2019-09-29 17:02] VITALS: BP 124/54
[2019-09-29 17:20] LABS: BASOPHILS 0.1 % (0-2); EOSINOPHILS 0.1 % (0-7); HEMATOCRIT 37.8 % (36.0-48.0); HEMOGLOBIN 12.8 g/dL (12-16); IMMATURE GRANULOCYTES 0.2 % (0-5); LYMPHOCYTES 36.2 % (15-50); MCH 30.3 pg (26.0-34.0); MCHC 33.9 g/dL (31.0-37.0); MCV 89.6 fL (80.0-100.0); MONOCYTES 6.4 % (2-11); PLATELET COUNT 424 10x3/uL (130-400); RBC 4.22 10x6/uL (4.00-5.40); RDW 14.7 % (11.5-14.5); WBC 16.7 10x3/uL (4.8-10.8)
[2019-09-29 17:29] LABS: APTT 23.9 SECONDS (22.8-39.4); INR 1.08 (0.85-1.17); PROTIME 13.5 SECONDS (11.6-15.0)
--- NOTE | 2019-09-29 17:30 | NUR ---
URINE SPECIMEN OBTAINED, LABELED AT BS AND SENT TO LAB
[2019-09-29 17:44] LABS: UDS - AMPHET NEGATIVE QUAL (NEGATIVE); UDS - BARB NEGATIVE QUAL (NEGATIVE); UDS - BENZO NEGATIVE QUAL (NEGATIVE); UDS - COCAINE NEGATIVE QUAL (NEGATIVE); UDS - OPIATE POSITIVE QUAL (NEGATIVE); UDS - PCP NEGATIVE QUAL (NEGATIVE); UDS - THC NEGATIVE QUAL (NEGATIVE)
[2019-09-29 17:53] VITALS: BP 133/63
[2019-09-29 17:58] LABS: CALC OSMOLALITY 275 mosm/kg (275-300); CARBON DIOXIDE 22.4 mmol/L (21.0-32.0); CHLORIDE - SERUM 105 mmol/L (98-107); CREATININE - SERUM 1.1 mg/dL (0.6-1.3); GLUCOSE 113 mg/dL (74-106); POTASSIUM - SERUM 4.3 mmol/L (3.5-5.1); SODIUM 137 mmol/L (136-145); UREA NITROGEN 15 mg/dL (7-18); eGFR NON AFRICAN AMERICAN 51 mL/min (90-120)
[2019-09-29 18:05] LABS: APPEARANCE CLEAR (CLEAR); BILIRUBIN NEGATIVE (NEGATIVE); COLOR YELLOW (YELLOW); GLUCOSE NEGATIVE (NEGATIVE); KETONE NEGATIVE (NEGATIVE); NITRITE NEGATIVE (NEGATIVE); PROTEIN NEGATIVE (NEGATIVE); UROBILINOGEN NORMAL (NORMAL)
[2019-09-29 18:16] LABS: BACTERIA MODERATE /hpf (NEGATIVE); EPITHELIAL CELLS 0-5 /hpf (0-5); RED CELLS - URINE 0-5 /hpf (0-5)
[2019-09-29 18:20] LABS: ALBUMIN 2.5 g/dL (3.4-5.0); ALKALINE PHOSPHATASE 156 U/L (46-116); ALT (SGPT) 25 U/L (10-68); BILIRUBIN - TOTAL 0.84 mg/dL (0.2-1.3); CKMB 20.5 U/L (0.0-3.6); CREATINE KINASE 253 UL (21-215); MAGNESIUM - SERUM 1.1 mg/dL (1.8-2.4); PROTEIN - SERUM 6.1 g/dL (6.4-8.2)
[2019-09-29 18:23] LABS: TROPONIN-I 4.828 ng/mL (0.000-0.060)
--- NOTE | 2019-09-29 18:27 | NUR ---
OSCAR TC FROM LAB: CRITICAL LABS- TROPONIN 4.828. LEE DURAN NOTIFIED
--- NOTE | 2019-09-29 18:27 | NUR ---
CALLED LAB TO DRAW BC'S BEFORE ABXS INITIATED
--- NOTE | 2019-09-29 18:38 | NUR ---
BC'S X 2 DRAWN PER FOOD CRITIC
--- NOTE | 2019-09-29 19:22 | NUR ---
REPORT CALLED TO LYNN VELA
--- NOTE | 2019-09-29 19:40 | NUR ---
PT ARRIVED TO ROOM VIA STRETCHER FROM ER. ALERT BUT CONFUSION NOTED AT TIMES. RR EVEN AND UNLABORED ON 2L NC. NO S/S OF DISTRESS NOTED AT THIS TIME. WILL MONITOR.
[2019-09-29 22:23] VITALS: BP 100/50; BMI 24.8
[2019-09-29 23:30] VITALS: BP 100/525
[2019-09-30 00:28] LABS: CKMB 35.7 U/L (0.0-3.6); CREATINE KINASE 315 UL (21-215)
[2019-09-30 00:30] LABS: TROPONIN-I 11.058 ng/mL (0.000-0.060)
--- NOTE | 2019-09-30 00:40 | NUR ---
ELEVATED TROPONIN 11.[address] CARDOSO. ORDERS TO KEEP PT NPO. WILL CTM.
[2019-09-30 07:53] VITALS: BP 121/49
[2019-09-30 08:01] LABS: BASOPHILS 0.2 % (0-2); EOSINOPHILS 0.6 % (0-7); HEMATOCRIT 37.6 % (36.0-48.0); HEMOGLOBIN 12.4 g/dL (12-16); IMMATURE GRANULOCYTES 0.3 % (0-5); MCH 29.9 pg (26.0-34.0); MCV 90.6 fL (80.0-100.0); MEAN PLATELET VOLUME 9.7 fL (7.4-10.4); MONOCYTES 6.4 % (2-11); NEUTROPHILS 67.5 % (40-80); PLATELET COUNT 347 10x3/uL (130-400); RBC 4.15 10x6/uL (4.00-5.40); RDW 15.3 % (11.5-14.5); WBC 13.5 10x3/uL (4.8-10.8)
[2019-09-30 08:45] LABS: ALBUMIN 2.3 g/dL (3.4-5.0); ALKALINE PHOSPHATASE 149 U/L (46-116); ALT (SGPT) 29 U/L (10-68); BILIRUBIN - TOTAL 0.76 mg/dL (0.2-1.3); CALC OSMOLALITY 274 mosm/kg (275-300); CALCIUM 8.6 mg/dL (8.5-10.1); CARBON DIOXIDE 20.4 mmol/L (21.0-32.0); CHLORIDE - SERUM 104 mmol/L (98-107); CHOL - HDL RATIO 3.1 ratio (2.3-4.1); CHOLESTEROL, TOTAL 126 mg/dL (0-200); CKMB 117.8 U/L (0.0-3.6); CREATININE - SERUM 1.1 mg/dL (0.6-1.3); GLUCOSE 107 mg/dL (74-106); HDL CHOLESTEROL 41 mg/dL (32-96); LDL CHOLESTEROL 71 mg/dL (0-100); LDL-HDL RATIO 1.7 ratio (1.5-3.5); POTASSIUM - SERUM 3.8 mmol/L (3.5-5.1); PROTEIN - SERUM 5.9 g/dL (6.4-8.2); SODIUM 137 mmol/L (136-145); TRIGLYCERIDE 73 mg/dL (30-200); UREA NITROGEN 15 mg/dL (7-18); eGFR NON AFRICAN AMERICAN 51 mL/min (90-120)
[2019-09-30 08:48] LABS: CREATINE KINASE 675 UL (21-215)
[2019-09-30 08:50] LABS: TROPONIN-I 27.863 ng/mL (0.000-0.060)
[2019-09-30 10:07] VITALS: Ht 165.1 cm; Wt 67.9 kg
[2019-09-30 11:27] VITALS: BP 117/47
--- NOTE | 2019-09-30 12:01 | MORECARE ---
CASE MANAGEMENT DISCHARGE SUMMARY PATIENT: LAILA BUCKNER UNIT: [id number] ADM DATE: 09/29/19 AGE: 73 : 45 SEX: F ROOM/BED: D.[facility] AUTHOR: MIKEY CASTILLO PHYSICIAN: REFERRING PHYSICIAN: BLANCA DEGROOT MD DATE OF SERVICE: 09/30/19 Discharge Plan Patient Name: LAILA BUCKNER Facility: [facility]:[place] : 1945 Planned Disposition: Home Anticipated Discharge Date: 10/02/19 Discharge Date: Expected LOS: 3 Initial Reviewer: [email or web address] Initial Review Date: 09/29/2019 Generated: 09/30/19 1:01 pm Patient Name: LAILA BUCKNER Page 42291 at 1201 All edits/amendments must be made on the electronic document DICTATION DATE: 09/30/19 1201 RESIDENT CARE AIDE: ERIN 09/30/19 1201 RPT#: [id number] DC DATE: STATUS: ADM IN [facility] [address] [place] [address] END OF REPORT
--- NOTE | 2019-09-30 12:08 | MORECARE ---
CASE MANAGEMENT DISCHARGE SUMMARY PATIENT: LAILA BUCKNER UNIT: [id number] ADM DATE: 09/29/19 AGE: 73 : 45 SEX: F ROOM/BED: D.[facility] AUTHOR: MIKEY CASTILLO PHYSICIAN: REFERRING PHYSICIAN: BLANCA DEGROOT MD DATE OF SERVICE: 09/30/19 Discharge Plan Patient Name: LAILA BUCKNER [facility] [facility] 1945 Planned Disposition: Home Anticipated Discharge Date: 10/02/19 Discharge Date: Expected LOS: 3 Initial Reviewer: [email or web address] Initial Review Date: 09/29/2019 Generated: 09/30/19 1:08 pm DCPIA - Discharge Planning Initial Assessment Updated by [email or web address]: Kristel Ellis on 09/30/19 12:01 pm * Is the patient Alert and Oriented? Yes * How many steps to enter\exit or inside your home? none * PCP Dr. Arevalo * Pharmacy [facility] * Preadmission Environment Home Alone * ADLs Partial Dependent * Partial ADLs (Assistance needed) Medication Management * Equipment Cane Rolling Walker * List name and contact numbers for known caregivers / representatives who currently or will assist patient after discharge: Amandeep Garcia [place] [facility] - [phone] * Verbal permission to speak to the caregivers and representatives has been obtained from the patient. Yes * Community resources currently utilized Home Health * Please name any agencies selected above. [facility] * Additional services required to return to the preadmission environment? No * Can the patient safely return to the preadmission environment? Yes * Has this patient been hospitalized within the prior 30 days at any hospital? Yes Last DP export: 09/30/19 11:01 Patient Name: LAILA BUCKNER Page 20692 at 1208 All edits/amendments must be made on the electronic document DICTATION DATE: 09/30/191207 ABRASIVE MIXER: ERIN 09/30/191207 RPT#: [id number] DC DATE: STATUS: ADM IN [facility] [address] [place] [address] END OF REPORT
--- NOTE | 2019-09-30 12:08 | NUR ---
RECEIVED PT IN BED EYES CLOSED RESP UNLABORED SKIN W/D COLOR WNL NAD NOTED
--- NOTE | 2019-09-30 12:21 | MORECARE ---
CASE MANAGEMENT DISCHARGE SUMMARY PATIENT: LAILA BUCKNER UNIT: [id number] ADM DATE: 09/29/19 AGE: 73 : 45 SEX: F ROOM/BED: D.5318 AUTHOR: ANNA,DOC PHYSICIAN: REFERRING PHYSICIAN: BLANCA DEGROOT MD DATE OF SERVICE: 09/30/19 Discharge Plan Patient Name: ALILA BUCKNER Facility: [facility]:[place] : 1945 Planned Disposition: Home Anticipated Discharge Date: 10/02/19 Discharge Date: Expected LOS: 3 Initial Reviewer: [email or web address] Initial Review Date: 09/29/2019 Generated: 09/30/19 1:20 pm DCP- Discharge Planning Updated by [email or web address]: Kristel Ellis on 09/30/19 11:[address] DC PLAN: Patient wants to return home with resumption of HH. ANTICIPATED DC NEEDS: May need rehab. Multiple falls since dc home Sep 15 ([facility] rehab) CM met with patient and her friends Marisel and Amandeep Kruger to complete initial dc planning assessment. CM educated patient on the CM role and verbal consent given by patient to complete assessment. CM verified patient's address, phone number, and emergency contact phone numbers. Patient lives at home alone and stated she is independent in her care at home. Marisel is shaking her head no when patient was saying she was able to care for herself. Marisel stated the patient discharged from [facility] on Sep [facility]. She was dc home with [facility]. She has had multiple falls since she was dc'd from rehab. CM discussed availability of assisted living facilities, home health, rehab services, and medical equipment. At discharge patient plans to return home and feels this is a safe discharge. She became tearful when CM was discussing rehab, she stated she has dogs at home. CM is not sure patient will be able to return home at dc but told her we could follow and see how she does with therapy prior to dc to make a safe dc plan. If patient returns home she would like to resume [facility]. JHONATAN presented, explained, and signed by Marisel, at patient's request. CM left a signed copy with patient and placed a signed copy on patient's chart. Patient denied further known discharge needs at this time. Transportation provider at discharge will be Marisel or Amandeep if she is able to return home. CM will continue to follow and will assist as needed with dc plans/needs. Kristel Ellis RN, [facility] DCPIA - Discharge Planning Initial Assessment Updated by [email or web address]: Kristel Ellis on 09/30/19 12:01 pm * Is the patient Alert and Oriented? Yes * How many steps to enter\exit or inside your home? none * PCP Dr. Arevalo * Pharmacy [facility] * Preadmission Environment Home Alone * ADLs Partial Dependent * Partial ADLs (Assistance needed) Medication Management * Equipment Cane Rolling Walker * List name and contact numbers for known caregivers / representatives who currently or will assist patient after discharge: Amandeep & Marisel [facility] [place] - [phone] * Verbal permission to speak to the caregivers and representatives has been obtained from the patient. Yes * Community resources currently utilized Home Health * Please name any agencies selected above. [facility] * Additional services required to return to the preadmission environment? No * Can the patient safely return to the preadmission environment? Yes * Has this patient been hospitalized within the prior 30 days at any hospital? Yes Last DP export: 09/30/19 11:08 Patient Name: LAILA BUCKNER Page [phone] at 1221 All edits/amendments must be made on the electronic document DICTATION DATE: 09/30/19 122 BACKHOE OPERATOR: ERIN 09/30/19 1220 RPT#: [id number] [place] DATE: STATUS: ADM IN [facility] [address] [place] [address] END OF REPORT
--- NOTE | 2019-09-30 15:00 | NUR ---
SCDs PLACED ON PT AND PATENT TO LT LEG
[2019-09-30 15:44] VITALS: BP 114/62
[2019-09-30 20:00] VITALS: BP 104/38
--- NOTE | 2019-09-30 20:28 | NUR ---
INITIAL ROUNDS COMPLETED AT 1915 HRS. PT DENIED ANY DISCOMFORT. ASSESSMENT COMPLETED AT 2004 HRS. SR PER CM HR 95. PT ALERT, ORIENTED TO PERSON, PLACE AND SITUATION. REORIENTED TO TIME. JEFFERY. SPEECH CLEAR. O2 2LNC. LUNGS ESSENTIALLY CTA. R GROIN CLEAN, DRY AND INTACT WITHOUT SWELLING, BRUISING OR BLEEDING. PALPABLE PERIPHERAL PULSES. IV TO R WRIST WITH NS AT 100CC/HR. IV PATENT. SR UP X2, CALL LIGHT WITHIN REACHM BED ALRM ON AND SCD TO L LEG.
--- NOTE | 2019-09-30 21:30 | NUR ---
PT RESTING WITH EYES CLOSED. RESP EVEN AND REGULAR. SR UP X2, CALL LIGHT WITHIN REACH AND BED ALARM ON.
--- NOTE | 2019-09-30 22:13 | NUR ---
VSS. PT DENIES ANY DISCOMFORT. SR UP X2, CALL LIGHT WITHIN REACH AND BED ALARM ON.
--- NOTE | 2019-09-30 23:56 | NUR ---
NO CHANGES TO R GROIN NOTED. PALPABLE PERIPHERAL PULSES. PT DENIES ANY DISCOMFORT. SR UP X2, CALL LIGHT WITHIN REACH AND BED ALARM ON.
[2019-10-01] VITALS: BP 108/44
--- NOTE | 2019-10-01 02:30 | NUR ---
PT RESTING WITH EYES CLOSED. RESP EVEN AND REGULAR. SR UP X2, CALL LIGHT WITHIN REACH.
--- NOTE | 2019-10-01 03:11 | NUR ---
PT VOIDED 250CC OF CONCENTRATED URINE VIA BEDPAN. NO DISTRESS NOTED. NO CHANGES TO R GROIN NOTED. SR UP X2, CALL LIGHT WITHIN REACH AND BED AALRM ON.
[2019-10-01 04:00] VITALS: BP 128/50
--- NOTE | 2019-10-01 04:47 | NUR ---
PT RESTING WITH EYES CLOSED. RESP EVEN AND REGULAR. SR UP X2, CALL LIGHT WITHIN REACH AND BED ALARM ON.
--- NOTE | 2019-10-01 06:05 | NUR ---
VSS THROUGHOUT NIGHT. PT DENIED ANY DISCOMFORT. NO CAHNGES TO NEURO STATUS OR R GROIN NOTED. NEEDS MET; WILL CONTINUE TO MONITOR.
[2019-10-01 09:33] VITALS: BP 156/58
--- NOTE | 2019-10-01 11:32 | NUR ---
TO CT BY BED. WILL MONITOR.
[2019-10-01 13:32] VITALS: BP 113/48
[2019-10-01 17:32] VITALS: BP 124/65
[2019-10-01 20:00] VITALS: BP 108/55
--- NOTE | 2019-10-01 20:27 | NUR ---
INITIAL ROUNDS COMPLETED AT 1915 HRS. PT DENIED ANY DISCOMFORT. ASSESSMENT COMPLETED AT 195 HRS. SR PER CM HR 89. PT ALERT AND ORIENTED TO PERSON,PLACE , SITUATION. REORIENTED TO TIME. JEFFERY. IMPAIRED ROM TO R ARM/HAND. PT STES IT HAS BEEN THAT WAY SINCE SHE WAS 25. 02 2LNC. LUNGS DIMINISHED IN BSES BILAT. ABD SOFT WTIH ACTIVE BS NOTED. R GROIN CLEAN, DRY AND INTACT. PALPABLE PERIPHERAL PULSES. PT DECLINES SCD'S. IV TO R FA SL. SR UP X2, CALL LIGHT WITHIN REACH AND BED ALARM ON.
--- NOTE | 2019-10-01 22:33 | NUR ---
HEATED BLANKET GIVEN PER REQUEST. DENIES ANY DISCOMFORT. SR UP X2, CALL LIGHT WITHIN REACH AND BED ALARM ON.
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
[2019-10-02] VITALS: BP 138/51
--- NOTE | 2019-10-02 00:07 | NUR ---
ASSISTED PT BACK TO BED PER PT REQUEST. SR UP X2, CALL LIGHT WITHIN REACH AND BED ALARM ON.
--- NOTE | 2019-10-02 02:22 | NUR ---
ASSISTED PT TO BR. GAIT SLIGHTY UNSTEADY. VOIDED MODERATE AMOUNT OF URINE AND HAD SMALL BM. ASSISTED BACK TO BED. SR UP X2, CALL LIGHT WITHIN REACH AND BED ALARM ON.
--- NOTE | 2019-10-02 04:15 | NUR ---
PT AWAKE; DENIES ANY DISCOMFORT. SR UPX2, CALL LIGHT WITHIN REACH AND BED ALARM ON.
[2019-10-02 04:30] VITALS: BP 110/52
[2019-10-02 05:57] LABS: MAGNESIUM - SERUM 1.6 mg/dL (1.8-2.4)
[2019-10-02 05:58] LABS: ANION GAP 12.3 mmol/L (8-16); CARBON DIOXIDE 25.7 mmol/L (21.0-32.0); CREATININE - SERUM 0.8 mg/dL (0.6-1.3)
[2019-10-02 06:18] LABS: BASOPHILS 0.2 % (0-2); EOSINOPHILS 3.8 % (0-7); HEMATOCRIT 34.4 % (36.0-48.0); HEMOGLOBIN 11.2 g/dL (12-16); IMMATURE GRANULOCYTES 0.1 % (0-5); LYMPHOCYTES 39.5 % (15-50); MCH 29.3 pg (26.0-34.0); MCHC 32.6 g/dL (31.0-37.0); MCV 90.1 fL (80.0-100.0); MEAN PLATELET VOLUME 10.1 fL (7.4-10.4); MONOCYTES 8.3 % (2-11); NEUTROPHILS 48.1 % (40-80); PLATELET COUNT 289 10x3/uL (130-400); RBC 3.82 10x6/uL (4.00-5.40)
--- NOTE | 2019-10-02 06:24 | NUR ---
VSS THROUGHOUT NIGHT. SR PER CM. PT DENIED ANY DISCOMFORT. NEEDS MET; WILL CONTINUE TO MONITOR.
[2019-10-02 06:26] LABS: WBC 8.4 10x3/uL (4.8-10.8)
--- NOTE | 2019-10-02 07:15 | NUR ---
RECEIVED PT IN BED AAOX4 RESP UNLABORED SKIN W/D COLOR PALE NAD NOTED WILL CONTINUE TO MONITOR
[2019-10-02 09:00] VITALS: BP 150/58
--- NOTE | 2019-10-02 10:45 | NUR ---
R groin incision from hearth cath 09/30/19.
[2019-10-02 14:38] VITALS: BP 135/45
--- NOTE | 2019-10-02 17:17 | MORECARE ---
CASE MANAGEMENT DISCHARGE SUMMARY PATIENT: LAILA BUCKNER UNIT: [id number] ADM DATE: 09/29/19 AGE: 73 : 45 SEX: F ROOM/BED: D.1021 AUTHOR: MIKEY CASTILLO PHYSICIAN: REFERRING PHYSICIAN: BLANCA DEGROOT MD DATE OF SERVICE: 10/02/19 Discharge Plan Patient Name: LAIL[facility] BUCKNER [facility] [facility] 1945 Planned Disposition: Inpatient Rehab Anticipated Discharge Date: 10/03/19 Discharge Date: Expected LOS: 4 Initial Reviewer: [id number] Initial Review Date: 09/29/2019 Generated: 10/02/19 6:17 pm Comments DCP- Discharge Planning Updated by [id number]: Bari Guerra on 10/02/19 4:[address] Patient Name: LAILA BUCKNER Encounter No: [id number] : 1945 Primary Insurance: MEDICARE A & B Anticipated DC Date: 10-03-2019 Planned Disposition: Inpatient Rehab External Planned Provider: [facility] IN[facility] DCP follow-up note: CM MET WITH PT IN ROOM TO DISCUSS DISCHARGE NEEDS AND PLANNING. CM DISCUSSED AVAILABILITY OF HOME HEALTH, REHAB SERVICES AND MEDICAL EQUIPMENT. PT WOULD LIKE REHAB AT [facility]. PT'S FRIEND, MARISEL MENDOZA, IN ROOM NOW, THINKS PT SHOULD GO TO REHAB. PT AND FRIEND IN AGREEMENT WITH REHAB AT [place]. MARISEL MENDOZA, , REPORTS TO BE PT'S MEDICAL POWER OF VIDEOGRAPHER AND CAN ASSIST NEEDED. PT IN AGREEMENT WITH MARISEL'S ASSISTANCE. IMPORTANT MESSAGE FROM MEDICARE PROVIDED AND EXPLAINED. CM TO FOLLOW AND ASSIST NEEDED. PATIENT AND FAMILY WOULD LIKE REHAB AT [facility]. ELLIE OF INPATIENT REHAB INFORMED CM THAT THEY WOULD CONSIDER PT FOR REHAB AND NEED ORDER FOR INPATIENT REHAB PRESCREENING. Bari Guerra, CASE MANAGEMENT DCP- Discharge Planning Updated by [id number]: Kristel Ellis on 09/30/19 11:[address] DC PLAN: Patient wants to return home with resumption of HH. ANTICIPATED DC NEEDS: May need rehab. Multiple falls since dc home Nov ([place] [facility]) CM met with patient and her friends Marisel and Amandeep Mendoza to complete initial dc planning assessment. CM educated patient on the CM role and verbal consent given by patient to complete assessment. CM verified patient's address, phone number, and emergency contact phone numbers. Patient lives at home alone and stated she is independent in her care at home. Marisel is shaking her head no when patient was saying she was able to care for herself. Marisel stated the patient discharged from [facility] on Sep [facility]. She was dc home with [facility]. She has had multiple falls since she was dc'd from rehab. CM discussed availability of assisted living facilities, home health, rehab services, and medical equipment. At discharge patient plans to return home and feels this is a safe discharge. She became tearful when CM was discussing rehab, she stated she has dogs at home. CM is not sure patient will be able to return home at dc but told her we could follow and see how she does with therapy prior to dc to make a safe dc plan. If patient returns home she would like to resume [facility]. JHONATAN presented, explained, and signed by Marisel, at patient's request. CM left a signed copy with patient and placed a signed copy on patient's chart. Patient denied further known discharge needs at this time. Transportation provider at discharge will be Marisel or Amandeep if she is able to return home. CM will continue to follow and will assist as needed with dc plans/needs. Kristel Ellis RN, [facility] DCPIA - Discharge Planning Initial Assessment Updated by [id number]: Kristel Ellis on 09/30/19 12:01 pm * Is the patient Alert and Oriented? Yes * How many steps to enter\exit or inside your home? none * PCP Dr. Arevalo * Pharmacy [facility] * Preadmission Environment Home Alone * ADLs Partial Dependent * Partial ADLs (Assistance needed) Medication Management * Equipment Cane Rolling Walker * List name and contact numbers for known caregivers / representatives who currently or will assist patient after discharge: Simeon Mendoza - friend - [phone] * Verbal permission to speak to the caregivers and representatives has been obtained from the patient. Yes * Community resources currently utilized Home Health * Please name any agencies selected above. [facility] * Additional services required to return to the preadmission environment? No * Can the patient safely return to the preadmission environment? Yes * Has this patient been hospitalized within the prior 30 days at any hospital? Yes Coverage Notice Reviewer: [id number] Brody Guerra Notice Issued Date-Time: 10/02/2019 14:45 Notice Type: IM Discharge Notice Notice Delivered To: Patient Relationship to Patient: Distribution Operation Supervisor Name: Delivery Method: HAND - Hand Delivered Kinga Days: Prior Verbal Notification: Recipient Understood Notice: Yes Recipient Signature: Yes Med Rec Note Co-signed by Attending: Coverage Notice Comment: Last DP export: 09/30/19 11:21 Patient Name: LAILA BUCKNER Page [phone] at 1717 All edits/amendments must be made on the electronic document DICTATION DATE: 10/02/191716 GAS MAIN AND LINE FITTER: ERIN 10/02/191716 RPT#: [id number] DC DATE: STATUS: ADM IN [facility] [address] [place] [address] END OF REPORT
[2019-10-02 17:51] VITALS: BP 116/46
--- NOTE | 2019-10-02 19:00 | NUR ---
RECEIVED BEDSIDE REPORT. PATIENT IS ALERT AND ORIENTED X 2. PATIENT IS CURRENTLY SITTING AT NURSES STATION REFUSING TO GO BACK TO HER ROOM. PATIENT STATES, "THAT YOU ALL SOLD MY HOUSE RIGHT FROM UNDER HER NOSE." PATIENT BELEIVES THAT HER BEDROOM IS DOWNSTAIRS AND THAT IS WHERE SHE NEEDS TO GO. PATIENT CURRENTLY WONDERING INTO OTHER PATIENTS ROOMS. PATIENT FINELY REDIRECTED BACK TO HER ROOM. AFTER GETTING BEDSIDE REPORT ON THE OTHER PATIENTS. PATIENT WAS FOUND WONDERING OF THE FLOOR. PATIENT STATES, "THAT SHE WAS GOING TO HER CAR." PATIENT IS INSISTED THAT SHE NEEDS TO GO HOME. DR. DAILEY PAGED. DR. DAILEY CAME TO FLOOR AND GAVE ORDERS FOR HALDOL.
--- NOTE | 2019-10-02 20:00 | NUR ---
PATIENT WONDERING DOWN [place]. PATIENT ESCORTED BACK TO ROOM. PATIENT CONTINUES TO STATE THAT SHE NEEDS TO GET TO HER CAR. PATIENT IS BARGAINING WITH NURSE SO THAT NURSE WILL LET HER GO HOME.
--- NOTE | 2019-10-02 20:20 | NUR ---
PATIENT WONDERED TO NURSES STATION SAT DOWN. PATIENT DEMANDING THAT WE ALLOW HER TO LEAVE. ATTEMPTED TO ESCORT PATIENT BACK TO ROOM. PATIENT REFUSED, THREATENING TO LET LOOSE ON STAFF. PATIENT CONTINUES TO WONDER DOWN HALLWAY. STAFF FOLLOWING PATIENT D/T HER BEING A FALL RISK.
[2019-10-02 20:45] VITALS: BP 104/69
--- NOTE | 2019-10-02 21:00 | NUR ---
PATIENT AGREED TO GO TO HER ROOM TO TAKE HER HS MEDICATION. PATIENT VERY COOPERATIVE. AFTER TAKING ALL HER MEDICATIONS PATIENT THROW THE WATER LEFT IN CUP AT NURSE. DEMANDING ONCE AGAIN TO GO HOME.
--- NOTE | 2019-10-02 22:00 | NUR ---
PAGED DR. DAILEY. PATIENT CONTINUES TO BECOME MORE AND MORE AGRESSIVE WITH STAFF. PATIENT IS UNSTEADY WE WALKING AROUND. PATIENT CONTINUES TO WONDER INTO PATIENTS ROOM.
--- NOTE | 2019-10-02 22:30 | NUR ---
PATIENT LAYING IN BED. PATIENT APPEARS TO BE SLEEPING. RESPIRATIONS ARE EVEN AND UNLABORED. NO S/S OF DISTRESS. NO C/O PAIN. CALL LLIGHT WITHIN REACH. WILL CPOC.
--- NOTE | 2019-10-03 00:59 | NUR ---
PATIENT AWAKE. NAKED. PATIENT REMOVED IV. PATIENT REFUSISING ASSISTANCE, DEMANDING THAT STAFF LEAVE ROOM.
--- NOTE | 2019-10-03 01:45 | NUR ---
PATIENT REFUSING TO WEAR TELEMETRY. PATIENT IS RESTING COMFORTABLY IN BED NAKED.
--- NOTE | 2019-10-03 02:37 | NUR ---
PATIENT UP WALKING AROUND ROOM NAKED. PATIENT IS TALKING TO HER DOGS AND YELLING OUT THE DOOR THAT "WE NEED TO GET OUT OF HER LIVING ROOM."
--- NOTE | 2019-10-03 03:00 | NUR ---
PATIENT HAD A BOWEL MOVEMENT IN THE GARBAGE CAN BECAUSE SHE SAID IT WASN'T CONVENIENT FOR HER TO USE THE RESTROOM.
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
[2019-10-03 06:56] LABS: ANION GAP 13.4 mmol/L (8-16); CALCIUM 8.4 mg/dL (8.5-10.1); CARBON DIOXIDE 23.3 mmol/L (21.0-32.0); CREATININE - SERUM 0.8 mg/dL (0.6-1.3); MAGNESIUM - SERUM 1.6 mg/dL (1.8-2.4); POTASSIUM - SERUM 3.7 mmol/L (3.5-5.1)
--- NOTE | 2019-10-03 07:46 | NUR ---
LYING IN BED TRYING TO FIND HER DOG. DOESNT UNDERSTAND WHERE SHE IS, THINKS WE ARE IN HER HOUSE AND WE ARE HER STAFF. AWAKE AND ALERT. NO IV OR TELEMERTY, SHE REFUSES IT. RANJEET ALARM ON. CAR LIGHT IN REACH WITH SIDE RAILS UP, WILL MONITOR
[2019-10-03 08:41] VITALS: BP 144/54
--- NOTE | 2019-10-03 08:49 | OP ---
PATIENT NAME: LAILA BUCKNER MEDICAL RECORD: [id number] :[birth year] LOCATION:D.M2 D.2121 ADMISSION DATE:09/29/19 SURGEON: ARASH CARDOSO MD DATE OF OPERATION: 09/30/2019 PROCEDURE: Left heart catheterization, selective coronary angiography, 4-vessel arteriography, right femoral artery approach. CATHETERS: A 5-Portuguese sheath, 5/4 left and right Fidelina, 5/4 pig, as well as a Roadrunner and AL1 catheter. FINDINGS: Left ventriculography; this shows anterior apical, apical and inferior apical hypo to akinesis consistent with Takotsubo cardiomyopathy, EF 25%. CORONARY ANATOMY: LEFT MAIN: Left main is free of disease. LAD: Has a myocardial bridge, but no significant obstructive coronary artery disease. CIRCUMFLEX: This is a left dominant system and this is free of disease. RIGHT CORONARY ARTERY: Codominant, free of disease. 4-VESSEL ARTERIOGRAM: 4-vessel arteriogram was performed. The catheter was withdrawn, proximally the right common carotid was selectively engaged, it shows no significant disease. Right external carotid shows luminal irregularities, no obstructive disease. Right internal carotid has about a 70% to 80% stenosis. The catheter was drawn to the left common carotid again. Left common carotid shows no significant stenosis. Left internal carotid, no significant stenosis. Left external carotid, no significant stenosis. IMPRESSION: Given ECG changes as well as changes on LV, this is most consistent with Takotsubo cardiomyopathy. I would consider a repeat CT of the head in approximately 48 hours as well as a CT of the internal carotid. The usual cardiomyopathic medications will be adjusted as blood pressure tolerates. TRANSINT:[id number] Voice Confirmation ID: [id number] DOCUMENT ID: [id number] ARASH CARDOSO MD at 0849 CC: [id number] DICTATION DATE: 09/30/19 0949 DATABASE DEVELOPER: 09/30/19 1323 [place] [address]
--- NOTE | 2019-10-03 13:28 | NUR ---
I have reviewed this patient and I concur with the Shift Assessment completed by the Licensed Practical Nurse today this shift.
[2019-10-03 13:35] VITALS: BP 160/71
--- NOTE | 2019-10-03 13:47 | NUR ---
Nutrition Follow-up: Pt confused with hallucinations. Spoke with nurse who reports pt ate ~50% of breakfast this AM and will not allow staff to assist her with feeding. Diet: Cardiac PO intake: 25-75% Wt: 149.4# Last BM: 10/03 per chart Labs noted: Mg 1.6 Meds noted: MagOx, Micro K, Megace -+Ensure with meals -RD following.
--- NOTE | 2019-10-03 14:26 | NUR ---
PT CONTINUES TO BE AGGRESTIVE AND AGITATED. PT IS CONTINOUS TO HAVE HALLUCINATIONS. HALDOL 5MG IM GIVEN.
[2019-10-03] MEDS ORDERED: ALDACTONE25 MG PO (15:25)
[2019-10-03] MEDS ORDERED: ACETAMINOPHEN325 MG PO (15:26)
[2019-10-03] MEDS ORDERED: LEVOFLOXACIN500 MG PO (15:27)
[2019-10-03] MEDS ORDERED: DIFLUCAN100 MG PO (15:28)
[2019-10-03] MEDS ORDERED: THERAGRAN M [BK1 TAB PO (15:31)
--- NOTE | 2019-10-03 15:46 | NUR ---
STILL TRYING TO GO DOWN THE HALLS TO LEON HER MOTHER AND FATHER.
--- NOTE | 2019-10-03 16:29 | NUR ---
PT DISCHARGED AND TO BE ADMITTED TO [facility],
--- NOTE | 2019-10-04 07:50 | MORECARE ---
CASE MANAGEMENT DISCHARGE SUMMARY PATIENT: LAILA BUCKNER UNIT: [id number] ADM DATE: 09/29/19 AGE: 73 : 45 SEX: F ROOM/BED: D.8898 AUTHOR: MIKEY CASTILLO PHYSICIAN: REFERRING PHYSICIAN: BLANCA DEGROOT MD DATE OF SERVICE: 10/04/19 Discharge Plan Patient Name: LAILA BUCKNER [facility] [facility] 1945 Planned Disposition: Psych facility Anticipated Discharge Date: 10/03/19 Discharge Date: 10/03/2019 Expected LOS: 4 Initial Reviewer: [email or web address] Initial Review Date: 09/29/2019 Generated: 10/04/19 8:49 am Comments DCP- Discharge Planning Updated by [email or web address]: Bari Guerra on 10/02/19 4:[address] Patient Name: LAILA BUCKNER Encounter No: [id number] : 1945 Primary Insurance: MEDICARE A & B Anticipated DC Date: 10-03-2019 Planned Disposition: Inpatient Rehab External Planned Provider: [facility] DCP follow-up note: CM MET WITH PT IN ROOM TO DISCUSS DISCHARGE NEEDS AND PLANNING. CM DISCUSSED AVAILABILITY OF HOME HEALTH, REHAB SERVICES AND MEDICAL EQUIPMENT. PT WOULD LIKE REHAB AT [facility]. PT'S FRIEND, MARISEL MENDOZA, IN ROOM NOW, THINKS PT SHOULD GO TO REHAB. PT AND FRIEND IN AGREEMENT WITH REHAB AT [place]. MARISEL MENDOZA, , REPORTS TO BE PT'S MEDICAL POWER OF LOCKSMITH HELPER AND CAN ASSIST NEEDED. PT IN AGREEMENT WITH MARISEL'S ASSISTANCE. IMPORTANT MESSAGE FROM MEDICARE PROVIDED AND EXPLAINED. CM TO FOLLOW AND ASSIST NEEDED. PATIENT AND FAMILY WOULD LIKE REHAB AT [facility]. ELLIE OF INPATIENT REHAB INFORMED CM THAT THEY WOULD CONSIDER PT FOR REHAB AND NEED ORDER FOR INPATIENT REHAB PRESCREENING. Bari Guerra, CASE MANAGEMENT DCP- Discharge Planning Updated by [id number]: Kristel Ellis on 09/30/19 11:[address] DC PLAN: Patient wants to return home with resumption of HH. ANTICIPATED DC NEEDS: May need rehab. Multiple falls since dc home Nov ([place] rehab) CM met with patient and her friends Marisel and Amandeep Mendoza to complete initial dc planning assessment. CM educated patient on the CM role and verbal consent given by patient to complete assessment. CM verified patient's address, phone number, and emergency contact phone numbers. Patient lives at home alone and stated she is independent in her care at home. Marisel is shaking her head no when patient was saying she was able to care for herself. Marisel stated the patient discharged from [facility] on Sep [facility]. She was dc home with [facility]. She has had multiple falls since she was dc'd from rehab. CM discussed availability of assisted living facilities, home health, rehab services, and medical equipment. At discharge patient plans to return home and feels this is a safe discharge. She became tearful when CM was discussing rehab, she stated she has dogs at home. CM is not sure patient will be able to return home at dc but told her we could follow and see how she does with therapy prior to dc to make a safe dc plan. If patient returns home she would like to resume [facility]. JHONATAN presented, explained, and signed by Marisel, at patient's request. CM left a signed copy with patient and placed a signed copy on patient's chart. Patient denied further known discharge needs at this time. Transportation provider at discharge will be Marisel or Amandeep if she is able to return home. CM will continue to follow and will assist as needed with dc plans/needs. Kristel Ellis RN, [facility] [place] DCPIA - Discharge Planning Initial Assessment Updated by [id number]: Kristel Ellis on 09/30/19 12:01 pm * Is the patient Alert and Oriented? Yes * How many steps to enter\exit or inside your home? none * PCP Dr. Arevalo * Pharmacy [facility] * Preadmission Environment Home Alone * ADLs Partial Dependent * Partial ADLs (Assistance needed) Medication Management * Equipment Cane Rolling Walker * List name and contact numbers for known caregivers / representatives who currently or will assist patient after discharge: Simeon Mendoza - friend - [phone] * Verbal permission to speak to the caregivers and representatives has been obtained from the patient. Yes * Community resources currently utilized Home Health * Please name any agencies selected above. [facility] * Additional services required to return to the preadmission environment? No * Can the patient safely return to the preadmission environment? Yes * Has this patient been hospitalized within the prior 30 days at any hospital? Yes Coverage Notice Reviewer: [id number] Brody Guerra Notice Issued Date-Time: 10/02/2019 14:45 Notice Type: IM Discharge Notice Notice Delivered To: Patient Relationship to Patient: Business System Consultant Name: Delivery Method: HAND - Hand Delivered Kinga Days: Prior Verbal Notification: Recipient Understood Notice: Yes Recipient Signature: Yes Med Rec Note Co-signed by Attending: Coverage Notice Comment: Last DP export: 10/02/19 4:17 Patient Name: LAILA BUCKNER Page [phone] at 0750 All edits/amendments must be made on the electronic document DICTATION DATE: 10/04/19748 BUILDING PRINCIPAL: ERIN 10/04/1949 RPT#: [id number] DC DATE:10/03/19 STATUS: DIS IN [facility] [address] [place] [address] END OF REPORT
--- NOTE | 2019-10-09 07:28 | DS ---
PATIENT:LAILA BUCKNER :45 MEDICAL RECORD: [id number] DISCHARGE SUMMARY ADMISSION DATE: 09/29/19 DISCHARGE DATE: 10/03/19 DISCHARGE DIAGNOSES: Symptomatic intravascular volume depletion, severe hypokalemia, hypotension, failure to thrive, chronic pain syndrome, chronic anxiety, depression. HOSPITAL COURSE: A 73-year-old female admitted with severe dehydration, hypokalemia after recent discharge for a vagotomy, pyloroplasty for chronic ulcers. She had been living at home without much help. Her family members were not assisting her. Medication compliance is questionable. She had poor p.o. intake and was unable to ambulate. On admission, she was normotensive with a pressure of 110/60, her heart rate was 90. She was afebrile. She appeared moderately ill. Potassium was 2.1 with a creatinine of 1.6. She was admitted, placed on IV fluids, IV electrolyte replacement. The patient felt better, was able to eat some, but still had marked disuse atrophy. Therefore, recommendation should be admitted to the inpatient [facility] for occupational and physical therapy and nutritional assistance. DISCHARGE MEDICATIONS: Flonase nasal spray 1 nasal spray daily, atenolol 25 mg a day, levothyroxine 100 mcg p.o. q.a.m. a.c., Alphagan 1 drop OU b.i.d., timolol 1 drop OU b.i.d., Requip 2 mg at bedtime, Neurontin 300 mg p.o. t.i.d., Pepcid 40 mg p.o. b.i.d., Lipitor 40 mg at h.s. Continue electrolyte protocol in rehab, meclizine 12.5 mg t.i.d. p.r.n. vertigo, Flexeril 10 mg p.o. b.i.d. p.r.n. low back spasms, Xanax 0.5 mg t.i.d. for anxiety, Tylenol No. 3 as needed p.r.n. pain. ACTIVITY: Progressive physical therapy. DIET: Low cholesterol. Her discharge creatinine was 1.1, sodium was 140, and potassium corrected to 4.0. TRANSINT:[id number] Voice Confirmation ID: [id number] DOCUMENT ID: [id number] ADINA CISNEROS MD at 0728 CC: [id number] DICTATION DATE: 10/08/19 0959 PATIENT SCHEDULING COORDINATOR: 10/09/19 0036 DIS IN 10/03/19 [place] [id number] [place] [address]
--- NOTE | 2019-10-09 09:58 | CN ---
PATIENT NAME:KATHERYN BUCKNER MEDICAL RECORD: [id number] : 45 LOCATION:. D.2121 ADMIT DATE: 09/29/19 ACCOUNT: [id number] CONSULTING PHYSICIAN: ARASH CARDOSO MD REFERRING PHYSICIAN: BLANCA DEGROOT MD DATE OF CONSULTATION: 09/30/2019 HISTORY OF PRESENT ILLNESS: Katheryn Buckner is a 73-year-old female, with a history dates back to previously underwent abdominal surgery, spent some time in rehabilitation, was just at home from rehab. Since that time, she has really just had more of a failure to thrive type symptomatology with almost TIA symptomology. She has visual changes similar to amaurosis and then syncope. She really denies true chest pain, angina; had a syncopal episode here, had similar episode at home, was brought here with family. She was more lucid this morning. Again, denies any classic cardiac symptomatology, some neurologic symptomatology. 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 Enzymes are elevated with NSTEMI at this point. We are asked to see her concerning cardiovascular status. PAST MEDICAL HISTORY: Includes: 1. History of hypertension. 2. Peptic ulcer disease status post vagotomy, antrectomy with cholecystectomy. 3. Hypothyroidism, on replacement. 4. Dyslipidemia. MEDICATIONS: Typically include Flexeril 10 mg p.o. every day, atenolol 25 every day, atorvastatin 40 every day, Xanax 0.5 t.i.d., Neurontin 300 t.i.d., Requip 2 mg at bedtime, Pepcid 40 mg p.o. b.i.d., Synthroid 100 mcg every day, Megace 400 mg p.o. every day. ALLERGIES: PENICILLIN. SOCIAL HISTORY: Nonsmoker, nondrinker. Prior to recent surgery was independent with ADLs. REVIEW OF SYSTEMS: The patient reports easy bruising but reports no swollen glands. The patient reports no fever, no night sweats, no significant weight gain, no significant weight loss. No significant exercise tolerance. The patient reports no dry eyes, no irritation, no vision change. Patient reports no difficulty hearing and no ear pain. Patient reports no frequent nose bleeds or nose and sinus problems. Patient reports on arm pain on exertion. No shortness of breath while lying down. No history of heart murmur. Patient reports no cough, no wheezing or coughing up blood. Patient reports no abdominal pain, no vomiting. Normal appetite. No diarrhea and not vomiting blood. No nausea and no constipation. Patient reports no incontinence. No difficulty urinating. No hematuria. No increased frequency. Patient reports no muscle aches. No weakness, no arthralgias, no back pain. No swelling of the extremities. Patient reports no abnormal mole, no jaundice, no rashes. Reports no loss of consciousness. No weakness and no numbness. No seizures, dizziness, or headaches. The patient reports no depression, no sleep disturbance, feeling safe in a relationship and no alcohol abuse. Patient reports on fatigue. Reports no runny nose or sinus pressure. No itching, no hives, and no frequent sneezing. PHYSICAL EXAMINATION: CONSULT REPORT [id number] BUCKNERKATHERYN GENERAL: Pleasant female in no acute distress, appears stated age. VITAL SIGNS: Blood pressure 121/49, pulse 80 and regular. HEENT: Normocephalic, atraumatic. NECK: Questionable right carotid bruit. HEART: Regular, II/ systolic ejection murmur. LUNGS: Good air excursion. ABDOMEN: Well-healed midline scar. Soft, nontender. EXTREMITIES: Pulses are preserved, 2+. There is no edema. 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 IMPRESSION: Non-ST segment elevation myocardial infarction with associated neurologic type symptomatology and amaurosis fugax. PLAN: For diagnostic angiography, 4-vessel arteriography. Intervention based on the above. TRANSINT:[id number] Voice Confirmation ID: [id number] DOCUMENT ID: [id number] 10/03/2019 Edited for lorenzo lopez. ARASH CARDOSO MD at 0958 CC: [id number] DICTATION DATE: 09/30/19825 FOOD PRODUCTION WORKER: 09/30/19 1026 DIS IN 10/03/19 [place] [id number] [place] [id number]
== END 2019-10-03 16:48 | disposition short-term general hospital (02) | DRG 280 ==
LOC: D.ER 16:17 → D.M2 18:44
PROVIDERS: Family Medicine; Internal Medicine Interventional Cardiology; ADMIT Family Medicine; ATTEND Family Medicine
PROC: 4A023N7 Measurement of Cardiac Sampling and Pressure, Left Heart, Percutaneous Approach (ICD-10-PCS; 2019-09-30)
PROC: B3151ZZ Fluoroscopy of Bilateral Common Carotid Arteries using Low Osmolar Contrast (ICD-10-PCS; 2019-09-30)
PROC: B3181ZZ Fluoroscopy of Bilateral Internal Carotid Arteries using Low Osmolar Contrast (ICD-10-PCS; 2019-09-30)
PROC: B31C1ZZ Fluoroscopy of Bilateral External Carotid Arteries using Low Osmolar Contrast (ICD-10-PCS; 2019-09-30)
PROC: B2111ZZ Fluoroscopy of Multiple Coronary Arteries using Low Osmolar Contrast (ICD-10-PCS; principal; 2019-09-30 08:59)
PROC: B2151ZZ Fluoroscopy of Left Heart using Low Osmolar Contrast (ICD-10-PCS; 2019-09-30 08:59)
DX: I21.4 Non-ST elevation (NSTEMI) myocardial infarction (principal); G93.41 Metabolic encephalopathy; N39.0 Urinary tract infection, site not specified; I51.81 Takotsubo syndrome; G45.3 Amaurosis fugax; E03.9 Hypothyroidism, unspecified; E78.5 Hyperlipidemia, unspecified; I10 Essential (primary) hypertension; E86.0 Dehydration; E87.6 Hypokalemia

== ENCOUNTER 2019-10-03 16:59 | Inpatient (IN) | payer MEDICARE, BC ==
[~2019-10-03] VITALS: Ht 165.1 cm; Wt 67.3 kg
[~2019-10-03 16:59] MED LIST changes: +ACETAMINOPHEN325 MG PO; +ALDACTONE25 MG PO; +DIFLUCAN100 MG PO; +LEVOFLOXACIN500 MG PO; +THERAGRAN M [BK1 TAB PO
[2019-10-03 20:13] VITALS: BP 158/85; BMI 24.9
--- NOTE | 2019-10-03 20:44 | NUR ---
NEW ADMIT TO DOCTOR RUIZ ON RETIREMENT FROM [facility] FOR ALTERED MENTAL STATUS. PATIENT HAS BEEN HAVING INCREASED CONFUSION, INCREASED AGGRESSION, AND HALLUCINATION. PATIENT TRANSPORTED TO RETIREMENT VIA WHEELCHAIR. ACCOMPANINED BY HOSPITAL STAFF. UPON ARRIVAL TO RETIREMENT, PATIENT WAS YELLING, AGGRESSIVE, AND THROWING THINGS. PATIENT CALMED DOWN AND WAS COOPERATIVE WITH CARE AND ADMISSION ASSESSMENTS. CONSENT TO TREAT RECEIVED FROM PATIENT. PATIENT ORIENTED TO UNIT, ROOM, AND CALL MERRITT SYSTEM. CODE WORD IS KANINE 1. PATIENT IS A FULL CODE.
[2019-10-03 20:48] VITALS: BP 158/85
[2019-10-04 07:00] VITALS: BP 139/79
[2019-10-04 10:22] LABS: BASOPHILS 0.4 % (0-2); EOSINOPHILS 1.6 % (0-7); HEMATOCRIT 38.9 % (36.0-48.0); HEMOGLOBIN 12.7 g/dL (12-16); IMMATURE GRANULOCYTES 0.1 % (0-5); LYMPHOCYTES 41.5 % (15-50); MCH 29.5 pg (26.0-34.0); MCHC 32.6 g/dL (31.0-37.0); MCV 90.3 fL (80.0-100.0); MEAN PLATELET VOLUME 10.4 fL (7.4-10.4); MONOCYTES 7.2 % (2-11); NEUTROPHILS 49.2 % (40-80); RBC 4.31 10x6/uL (4.00-5.40); RDW 14.8 % (11.5-14.5); WBC 8.2 10x3/uL (4.8-10.8)
[2019-10-04 10:23] LABS: PLATELET COUNT 357 10x3/uL (130-400)
[2019-10-04 11:03] LABS: ALBUMIN 2.7 g/dL (3.4-5.0); ANION GAP 16.5 mmol/L (8-16); BILIRUBIN - TOTAL 0.37 mg/dL (0.2-1.3); CALCIUM 8.7 mg/dL (8.5-10.1); CARBON DIOXIDE 21.5 mmol/L (21.0-32.0); CHOL - HDL RATIO 3.6 ratio (2.3-4.1); LDL-HDL RATIO 2.1 ratio (1.5-3.5); THYROID STIMULATING HORMONE 4.83 uIU/mL (0.36-3.74)
[2019-10-04 11:06] LABS: CREATININE - SERUM 1.1 mg/dL (0.6-1.3)
--- NOTE | 2019-10-04 12:43 | NUR ---
PT EATING DINNER AT THIS TIME. NO DISTRESS NOTED. NURSE ASSISTED PT TO RESTROOM. BM AT THIS TIME. REDIRECT AND REORIENT PT WHEN NEEDED. ALERT AND ORIENTED TO SELF ONLY. PT CAN MAKE NEEDS KNOWN. TRANSFER WITH ASSISTANCE. CHAIR ALARM IN PLACE AND ACTIVE. WILL CONT PLAN OF CARE.
[2019-10-04 14:00] VITALS: Ht 165.1 cm; Wt 67.3 kg
--- NOTE | 2019-10-04 20:16 | NUR ---
RECEIVED IN HALLWAY OUTSIDE OF NURSES STATION. SITTING IN WHEELCHAIR WITH PEERS BY HER SIDE. CALM AND COOPERATIVE WITH CARE AND ASSESSMENT. NO AGGRESSIVE BEHAVIOR. REDIRECT AND REORIENT NEEDED. RESTING IN BED WITH EYES OPEN AT THIS TIME. CONTINUE PLAN OF CARE.
[2019-10-04 22:59] VITALS: BP 144/66
[2019-10-05 07:13] LABS: RAPID PLASMA REAGIN Non Reactive (Non Reactive)
[2019-10-05 08:00] VITALS: BP 162/90
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
--- NOTE | 2019-10-05 11:21 | NUR ---
PATIENT SITTING WITH PEERS. NO ACUTE DISTRESS NOTED. CAN MAKE NEEDS KNOWN. PT IS ALERT AND ORIENTED TO SELF, PLACE. REORIENT AND REDIRECT NEEDED. NO AGGRESSION, HALLUCINATING NOTED THUS FAR. PT IS COMPLIANT WITH MEDS, ASSESSMENTS AND VITALS. ASSIST WITH TRANSFERS. CHAIR ALARM IN PLACE AND ACTIVE. WILL CONT PLAN OF CARE.
--- NOTE | 2019-10-05 20:18 | NUR ---
RECEIVED IN DAYROOM. SITTING IN A CHAIR WITH PEERS AT HER SIDE. CALM AND COOPERATIVE WITH CARE AND ASSESSMENT. NO SIGNS OF AGGRESSION. REDIRECT AND REORIENT NEEDED. RESTING IN BED WITH EYES OPEN AT THIS TIME. CONTINUE PLAN OF CARE
[2019-10-05 22:47] VITALS: BP 157/66
--- NOTE | 2019-10-06 10:51 | NUR ---
B) The patient is awake and alert, she is pleasant she has requested if she may get some clothes, she said she came from home before the med floor then to here and she has no family that can bring her clothes so she asked if she can get some. Found her a pair of jeans and a shirt and nonskid socks. She has not shown any aggression or mentioned any hallucinations today. I) Provide prescribed meds. R) The patient is compliant with meds and unit milieu. P) Continue POC.
[2019-10-06 15:21] VITALS: BP 152/65
--- NOTE | 2019-10-06 15:44 | NUR ---
Marisel Kruger called and she wanted to know how she is doing. Let her know that the patient is doing well. She does need three outfits.
--- NOTE | 2019-10-06 16:06 | PN ---
PATIENT:LAILA BUCKNER MEDICAL RECORD: [id number] LOCATION:[facility] Gord[facility] ADMISSION DATE: 10/03/19 PROGRESS NOTE DATE OF SERVICE: 10/05/2019 SUBJECTIVE: The patient's case was discussed with staff. She has no new complaint. OBJECTIVE: The patient is oriented partially. She has a euthymic mood. She has not been aggressive. ASSESSMENT: Dementia. PLAN: The patient's social situation is a major concern. She will be monitored for clinical changes. TRANSINT:[id number] Voice Confirmation ID: [id number] DOCUMENT ID: [id number] NIKIA RUIZ MD at 1606 CC: [id number] DICTATION DATE: 10/05/19 1027 TOOL DESIGN CHECKER: 10/05/19 1044 [place] [address]
[2019-10-06 20:23] VITALS: BP 128/59
--- NOTE | 2019-10-07 02:19 | NUR ---
REC'D PATIENT SITTING IN DAYROOM. ORIENTED TO SELF, PLACE AND TIME. INTERACTING WITH NURSE AND PEERS. ADMINISTER MEDS AND MONITOR COMPLIANCE. OBSERVE FOR AGGRESSION AND REDIRECT NEEDED. MED COMPLIANT. NO AGGRESSION OBSERVED. FOLLOWING VERBAL INSTRUCTIONS FROM STAFF. CONTINUE POC AND PROVIDE SAFE ENVIRONMENT.
--- NOTE | 2019-10-07 07:30 | NUR ---
B) The patient is awake and alert and she is pleasant. She said she woke up early and felt a little dizzy and shakey. manufacturing shift supervisor checked her fsbs at around 6 or 6:30 it was 114. She says she feels fine now. I) Provide prescribed meds. R) She is compliant with meds, she has not shown any aggrtession or any hallucinations. She says she realizes she has confusion and that dementia and alzheimers run in her family. P) Continue POC.
[2019-10-07 08:26] VITALS: BP 143/55
--- NOTE | 2019-10-07 11:48 | PN ---
PATIENT:LAILA BUCKNER MEDICAL RECORD: [id number] LOCATION:[facility]as[facility]andy[facility] ADMISSION DATE: 10/03/19 PROGRESS NOTE DATE OF SERVICE: 10/06/2019 SUBJECTIVE: The patient's case was discussed with staff. She has no new complaint. OBJECTIVE: The patient has been in good behavioral control and has had no agitated behavior. This is difficult to explain given how aggressive and violent she was when she first was admitted to the hospital. Her TSH is mildly elevated. I am not entirely sure if she has been compliant with her medicines, so I am going to leave adjusting that to Dr. Bermudez. I am going to start her on Namenda and will monitor her for clinical changes associated with its use. TRANSINT:[id number] Voice Confirmation ID: [id number] DOCUMENT ID: [id number] NIKIA RUIZ MD at 1148 CC: [id number] DICTATION DATE: 10/06/19 1630 CLIENT DEVELOPMENT MANAGER: 10/06/19 1943 ADM IN [place] [id number] [place] [address]
[2019-10-07 20:00] VITALS: BP 144/50
--- NOTE | 2019-10-07 21:20 | NUR ---
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 WILL FOLLOW POC
[2019-10-08 10:36] VITALS: BP 162/80
--- NOTE | 2019-10-08 13:21 | PN ---
PATIENT:LAILA BUCKNER MEDICAL RECORD: [id number] LOCATION:E[facility]ATERINA Gordillo ADMISSION DATE: 10/03/19 PROGRESS NOTE DATE OF SERVICE: 10/07/2019 SUBJECTIVE: The patient's case was discussed with staff. She has no new complaint. OBJECTIVE: The patient is impaired, but in good behavioral control. She is oriented to person and place and somewhat to situation, but not at all to time. She has a euthymic mood. ASSESSMENT: Dementia. PLAN: Current medicines have been reviewed and will be maintained. Long-term prognosis is guarded. TRANSINT:[id number] Voice Confirmation ID: [id number] DOCUMENT ID: [id number] NIKIA RUIZ MD at 1321 CC: [id number] DICTATION DATE: 10/07/19 1153 BILINGUAL TEACHER ASSISTANT: 10/07/19 1247 ADM IN [place] [address] [place] [address]
--- NOTE | 2019-10-08 14:09 | NUR ---
PT IS AWAKE AND ALERT TO PERSON. CALM AND COOPERATIVE WITH ASSESSMENT. PRESCRIBED MEDS PROVIDED. MED COMPLIANT. NO BEHAVIORS NOTED AT THIS TIME. REDIRECT AND REORIENT NEEDED. FALL PRECAUTIONS IN PLACE. WILL CPOC.
--- NOTE | 2019-10-08 19:36 | NUR ---
REECIVED IN BEDROOMRESTING ON BED WITH EYES OPEN. A NURSE BY HER SIDE. CALM AND COOPERATIVE WITH CARE AND ASSESSMENT. NO SIGNS OF AGGRESSION. REDIRECT AND REORIENT NEEDED. RESTING IN BED WITH EYES CLOSED AT THIS TIME. CONTINUE PLAN OF CARE
[2019-10-09 08:18] VITALS: BP 137/84
--- NOTE | 2019-10-09 12:29 | PN ---
PATIENT:LAILA BUCKNER MEDICAL RECORD: [id number] LOCATION:EKATERINA [facility]asBrandyNeno ADMISSION DATE: 10/03/19 PROGRESS NOTE DATE OF SERVICE: 10/08/2019 SUBJECTIVE: The patient's case was discussed with staff. She has no new complaint. OBJECTIVE: The patient is in good behavioral control. She is quite pleasant but severely impaired cognitively. ASSESSMENT: Dementia. PLAN: Supportive and educational interventions were made. Long-term prognosis is guarded. TRANSINT:[id number] Voice Confirmation ID: [id number] DOCUMENT ID: [id number] NIKIA RUIZ MD at 1229 CC: [id number] DICTATION DATE: 10/08/19 1343 MEDICAL HISTORIAN: 10/08/19 1928 ADM IN [place] [address] [place] [address]
--- NOTE | 2019-10-09 13:06 | NUR ---
PT IS AWAKE AND ALERT. CALM AND COOPERATIVE WITH ASSESSMENT. PRESRCIBED MEDS PROVIDED ORDERED. MED COMPLIANT. NO BEHAVIORS NOTED AT THIS TIME. REDIRECT AND REORIENT NEEDED. FALL PRECAUTIONS IN PLACE. WILL CPOC.
--- NOTE | 2019-10-09 19:54 | NUR ---
RECEIVED IN DINING ROOM AREA. SITTING AT TABLE WITH STAFF AND PEERS. CALM AND COOPERATIVE WITH CARE AND ASSESSMENT. NO SIGNS OF AGGRESSION. REDIRECT AND REORIENT NEEDED. RESTING IN BED WITH EYES CLOSED AT THIS TIME. CONTINUE PLAN OF CARE
[2019-10-09 22:02] VITALS: BP 152/63
[2019-10-10 08:00] VITALS: BP 138/83
--- NOTE | 2019-10-10 11:18 | NUR ---
Nutrition Follow-up: Diet: Cardiac + Ensure TID PO intake: ~54% average x last 9 meals Last BM: 10/06/19. Wt: 153# (10/08/19); Admit wt: 150# (10/03/19) Significant meds: Megace. No new labs. Continue current nutrition regimen. Encourage PO intake. RD Following.
--- NOTE | 2019-10-10 11:24 | NUR ---
PT SITTING IN RECLINING CHAIR IN DAYROOM WITH PEERS. CALM AND COOPERATIVE WITH ASSESSMENT. PRESCRIBED MEDS PROVIDED ORDERED. MED COMPLIANT. REDIRECT AND REORIENT NEEDED. NO BEHAVIORS NOTED AT THIS TIME. FALL PRECAUTIONS IN PLACE. WILL CPOC.
--- NOTE | 2019-10-10 12:41 | PN ---
PATIENT:LAILA BUCKNER MEDICAL RECORD: [id number] LOCATION:EKATERINA Gordillo ADMISSION DATE: 10/03/19 PROGRESS NOTE DATE OF SERVICE: 10/09/2019 SUBJECTIVE: The patient's case was discussed with staff. She has no new complaint. OBJECTIVE: The patient has been in good behavioral control and has not been aggressive in any significant way. ASSESSMENT: Dementia. PLAN: The patient's Namenda will be increased to 5 mg twice daily. Namenda is being used to treat her underlying cognitive impairment. It is my opinion that this patient cannot live alone. I have discussed this with the treatment team and given her lack of social supports it looks as though a detention is going to be the least restrictive environment that will meet her needs. TRANSINT:[id number] Voice Confirmation ID: [id number] DOCUMENT ID: [id number] NIKIA RUIZ MD at 1241 CC: [id number] DICTATION DATE: 10/09/19 1314 RECRUITING MANAGER: 10/09/19 1645 ADM IN [place] [id number] [place] [address]
--- NOTE | 2019-10-10 19:50 | NUR ---
RECEIVED IN DINING AREA. SITTING AT TABLE WITH PEERS. CALM AND COOPERATIVE WITH CARE AND ASSESSMENT. NO SIGNS OF AGGRESSION. REDIRECT AND REORIENT NEEDED. CONTINUES TO SIT CALMLY AT TABLE. CONTINUE PLAN OF CARE
[2019-10-10 22:55] VITALS: BP 146/69
[2019-10-11 08:00] VITALS: BP 159/84
--- NOTE | 2019-10-11 15:58 | PN ---
PATIENT:LAILA BUCKNER MEDICAL RECORD: [id number] LOCATION:EKATERINA Gordillo ADMISSION DATE: 10/03/19 PROGRESS NOTE DATE OF SERVICE: 10/10/2019 SUBJECTIVE: The patient's case was discussed with staff. She has no new complaint. OBJECTIVE: The patient is in good behavioral control, but impaired cognitively. She is not showing any aggression or hallucinations. ASSESSMENT: Dementia. PLAN: Current medicines have been reviewed. This patient cannot live alone. Our social service manager is going to contact the niece to see if there is any option for her to take over managing the patient's affairs. TRANSINT:[id number] Voice Confirmation ID: [id number] DOCUMENT ID: [id number] NIKIA RUIZ MD at 1558 CC: [id number] DICTATION DATE: 10/10/19 1301 OUTSOLE PARAFFINER: 10/10/19 1434 ADM IN [place] [address] [place] [address]
[2019-10-11 20:30] VITALS: BP 154/63
--- NOTE | 2019-10-12 00:32 | NUR ---
REC'D PATIENT SITTING IN THE DAYROOM. ORIENTED X3. INTERACTS APPROPRIATELY WITH STAFF BUT DOES NOT INITIATE CONVERSATION WITH PEERS PRIMARILY WATCHES AND LAUGHS AT THINGS GOING ON THE DAYROOM. ADMINISTER MEDS AND MONITOR COMPLIANCE. ENCOURAGE PATIENT TO INTERACT WITH PEERS. MED COMPLIANT. APPROPRIATE WITH STAFF BUT CONTINUES TO WATCH PEERS AND NOT INTERACT. CONTINUE POC AND PROVIDE SAFE ENVIRONMENT.
[2019-10-12 08:51] VITALS: BP 180/79
--- NOTE | 2019-10-12 10:55 | NUR ---
Nutrition Follow-up: Diet: Cardiac + Ensure TID PO intake: ~83% average x last 9 meals Last BM: 10/06/19 x 6 days. Wt: 153# (10/08/19); Admit wt: 150# (10/03/19) Significant meds: megace. No new labs. Continue current nutrition regimen. Consider increase in bowel regimen to promote BM regularity and help prevent appetite decrease. RD following.
--- NOTE | 2019-10-12 14:34 | PN ---
PATIENT:LAILA BUCKNER MEDICAL RECORD: [id number] LOCATION:EKATERINA Gordillo ADMISSION DATE: 10/03/19 PROGRESS NOTE DATE OF SERVICE: 10/11/2019 SUBJECTIVE: The patient's case was discussed with staff. She has no new complaint. OBJECTIVE: The patient is impaired, but not aggressive. She certainly cannot live alone. ASSESSMENT: Dementia. PLAN: Current medicines have been reviewed and will be maintained. Long-term prognosis is guarded. She is going to be [facility] to a jail soon. TRANSINT:[id number] Voice Confirmation ID: [id number] DOCUMENT ID: [id number] NIKIA RUIZ MD at 1434 CC: [id number] DICTATION DATE: 10/11/19 1638 FIBERGLASSER: 10/11/19 2345 ADM IN [place] [id number] [place] [address]
--- NOTE | 2019-10-12 16:53 | NUR ---
B) The patient is pleasnt and calm, she has not shown any aggression today. She ambulates independently. I) Provide prescribed meds. R) The patient is compliant with meds and unit milieu. P) Continue POC.
[2019-10-12] MEDS ORDERED: NAMENDA5 MG PO (17:28)
[2019-10-12] MEDS ORDERED: TRUSOPT 2 % OPT10 ML EACH EYE (17:29)
[2019-10-12] MEDS ORDERED: TIMOPTIC 0.5 % O5 ML EACH EYE (17:29)
[2019-10-12 20:20] VITALS: BP 156/75
--- NOTE | 2019-10-13 00:06 | NUR ---
REC'D PATIENT LAYING ON THE COUCH. RELATED "I HAVE A THROBBING HEADACHE AND AM ABOUT READY TO RUN MY FINGERNAILS DOWN THE BLACKBOARD." RELATED THIS HAS BEEN A TERRIBLE DAY ON THE UNIT. RIGHT HAND CONTRACTURE. ALERT AND ORIENTED. SOCIALLY WITHDRAWN BUT APPROPRIATE WHEN APPROACHED BY STAFF. ADMINISTER MEDS AND MONITOR COMPLIANCE. ENCOURAGE INTERACTION WITH PEERS. MED COMPLIANT. REMAINS WITHDRAWN AROUND PEERS. CONTINUE POC AND PROVIDE SAFE ENVIRONMENT.
--- NOTE | 2019-10-13 08:17 | NUR ---
B) The patient is awake and alert, she is pleasant and she is aware that she is being discharged today. She ambulates independently. I) Will fax d/c order and medication list to the facility, will gather the patient's personal belongings. R) The patient is calm and she is ready to discharge. P) Continue POC.
[2019-10-13 09:31] VITALS: BP 118/70
--- NOTE | 2019-10-13 10:59 | NUR ---
B) The patient is awake and alert, she is pleasant and calm. She ambulates independently. She has not shown any confusion or aggression today. I) Provide prescribed meds. R) The patient is compliant with meds and unit milieu. P) Continue POC.
--- NOTE | 2019-10-13 15:00 | NUR ---
[facility] came by today to check on her and to interview her for an admit.
--- NOTE | 2019-10-13 15:57 | PN ---
PATIENT:LAILA BUCKNER MEDICAL RECORD: [id number] LOCATION:EKATERINA Gordillo ADMISSION DATE: 10/03/19 PROGRESS NOTE DATE OF SERVICE: 10/12/2019 SUBJECTIVE: The patient's case was discussed with staff. She has no new complaint. OBJECTIVE: The patient has improved significantly. She has no evidence of psychotic symptoms and is tolerating her medicines well. ASSESSMENT: Dementia. PLAN: The patient can be transitioned out of the hospital soon. Her long-term prognosis is guarded. TRANSINT:[id number] Voice Confirmation ID: [id number] DOCUMENT ID: [id number] NIKIA RUIZ MD at 1557 CC: [id number] DICTATION DATE: 10/12/19 172 INTERNATIONAL FREIGHT FORWARDER: 10/12/19 1841 ADM IN [place] [address] [place] [address]
[2019-10-13 19:30] VITALS: BP 146/68
--- NOTE | 2019-10-14 03:07 | NUR ---
B) Patient is alert and oriented to person, place and time, calm and cooperative this shift, I) Administered scheduled medications as ordered, monitored for needs R) Medication compliant, pleasant and friendly toward staff, P) Continue plan of care.
[2019-10-14 08:29] VITALS: BP 143/75
--- NOTE | 2019-10-14 10:46 | NUR ---
The patient is c/o constipation. She has not had a BM since 10/09. Text Dr. Roper.
--- NOTE | 2019-10-14 11:48 | NUR ---
The patient received dulcolax 10 mg po, will monitor for a BM.
--- NOTE | 2019-10-14 12:38 | PN ---
PATIENT:LAILA BUCKNER MEDICAL RECORD: [id number] LOCATION:EKATERINA [facility] ADMISSION DATE: 10/03/19 PROGRESS NOTE DATE OF SERVICE: 10/13/2019 SUBJECTIVE: The patient's case was discussed with staff. She has no new complaint. OBJECTIVE: The patient is tolerating her medicines well. Eye contact is poor. ASSESSMENT: Dementia. PLAN: The patient was to be discharged today, but there are some problems related to the [facility] and then being able to accept her. As it is Wednesday afternoon, I doubt that will be worked out before Wednesday. TRANSINT:[id number] Voice Confirmation ID: [id number] DOCUMENT ID: [id number] NIKIA RUIZ MD at 1238 CC: [id number] DICTATION DATE: 10/13/19 1620 TONNAGE COMPILATION CLERK: 10/13/192010 ADM IN [facility] [address] [place] [address]
[2019-10-14 20:00] VITALS: BP 173/72
--- NOTE | 2019-10-14 23:41 | NUR ---
B) patient is alert and oriented to person, calm and cooperative this shift, I) Administered scheduled medications as ordered, monitored for safety, assisted with needs R) Mediation compliant, pleasant toward staff, P) Continue plan of care.
[2019-10-15 08:00] VITALS: BP 167/87
--- NOTE | 2019-10-15 19:58 | NUR ---
RECEIVED IN BEDROOM. RESTING IN BED WITH EYES CLOSED. CALM AND COOPERATIVE WITH CARE AND ASSESSMENT. NO SIGNS OF HALLUCINATIONS. ENCOURAGE TO EXPRESS NEEDS. RESTING IN BED WITH EYES CLOSED. CONTINUE PLAN OF CARE
[2019-10-15 20:09] VITALS: BP 126/59
[2019-10-15 20:44] VITALS: BP 126/59
[2019-10-16 09:36] VITALS: BP 179/76
--- NOTE | 2019-10-16 15:11 | NUR ---
PATIENT CALM, COOPERATIVE, COMPLIANT WITH MEDS, SCHEDULED TO DISCHARGE TOMORROW. NO ADVERSE BEHAVIORS NOTED. CONT POC DIRECTED.
--- NOTE | 2019-10-16 15:13 | PN ---
PATIENT:LAILA BUCKNER MEDICAL RECORD: [id number] LOCATION:EKATERINA Gordillo ADMISSION DATE: 10/03/19 PROGRESS NOTE DATE OF SERVICE: 10/15/2019 SUBJECTIVE: The patient's case was discussed with staff. She has no new complaint. OBJECTIVE: The patient denies intent to harm herself or others. She does tolerate her medicines well. ASSESSMENT: Dementia. PLAN: The patient will be transitioned out of the hospital soon. I anticipate it could be as early as tomorrow. TRANSINT:[id number] Voice Confirmation ID: [id number] DOCUMENT ID: [id number] NIKIA RUIZ MD at 1513 CC: [id number] DICTATION DATE: 10/15/19 1430 WHEEL AND CASTER REPAIRER: 10/15/19 1540 ADM IN [place] [id number] [place] [address]
--- NOTE | 2019-10-16 15:13 | PN ---
PATIENT:LAILA BUCKNER MEDICAL RECORD: [id number] LOCATION:EKATERINA [place]112 ADMISSION DATE: 10/03/19 PROGRESS NOTE DATE OF SERVICE: 10/14/2019 SUBJECTIVE: The patient's case was discussed with staff. She has no new complaint. OBJECTIVE: The patient is in good behavioral control with a euthymic mood. ASSESSMENT: Dementia. PLAN: Hopefully, the patient can be transitioned out of the hospital after the weekend. Her long-term prognosis is guarded. TRANSINT:[id number] Voice Confirmation ID: [id number] DOCUMENT ID: [id number] NIKIA RUIZ MD at 1513 CC: [id number] DICTATION DATE: 10/14/19 1251 MANAGER PHARMACY: 10/14/19 1424 ADM IN [place] [id number] [place] [address]
[2019-10-16 23:37] VITALS: BP 164/64
--- NOTE | 2019-10-17 00:23 | NUR ---
RECEIVED IN PATIENT ROOM. RESTING IN BED WITH EYES OPEN. CALM AND COOPERATIVE WITH CARE AND ASSESSMENT. NO AGGRESSIVE BEHAVIORS. NO SIGNS OF HALLUCINATIONS. REDIRECT AND REORIENT NEEDED. RESTING IN BED WITH EYES CLOSED AT THIS TIME. CONTINUE PLAN OF CARE.
--- NOTE | 2019-10-17 08:30 | NUR ---
PATIENT IS AWAKE AND ALERT. CALM AND COOPERATIVE WITH CARE AND ASSESSMENT. MEDICATION COMPLIANT. NO AGGRESSIVE BEHAVIOR. REDIRECT AND REORIENT NEEDED. WILL CONTINUE TO MONITOR.
[2019-10-17 09:25] VITALS: BP 109/88
--- NOTE | 2019-10-17 13:30 | NUR ---
DISCHARGED TO [facility] VIA PRIVATE CAR WITH FRIEND, REPORT CALLED EARLIER TO NURSE.
--- NOTE | 2019-10-17 15:04 | PN ---
PATIENT:LAILA BUCKNER MEDICAL RECORD: [id number] LOCATION:EKATERINA [place]112 ADMISSION DATE: 10/03/19 PROGRESS NOTE DATE OF SERVICE: 10/16/2019 SUBJECTIVE: The patient's case was discussed with staff. She has no new complaint. OBJECTIVE: The patient is in good behavioral control. She has limited insight about her situation. ASSESSMENT: Dementia. PLAN: Brief supportive and educational interventions were made. Long-term prognosis is guarded. I anticipate the patient can be transitioned out of the hospital tomorrow. It is my understanding that the paperwork and transportation obstacles have now been solved. TRANSINT:[id number] Voice Confirmation ID: [id number] DOCUMENT ID: [id number] NIKIA RUIZ MD at 1504 CC: [id number] DICTATION DATE: 10/16/19 1537 CHAIN PEGGER: 10/16/19 1836 ADM IN [facility] [address] [place] [address]
--- NOTE | 2019-10-18 12:33 | PN ---
PATIENT:LAILA BUCKNER MEDICAL RECORD: [id number] LOCATION:[facility] ADMISSION DATE: 10/03/19 PROGRESS NOTE DATE OF SERVICE: 10/17/2019 SUBJECTIVE: The patient's case was discussed with staff. She has no new complaint. OBJECTIVE: The patient is in good behavioral control with very limited insight about her condition. She is partially oriented and her mood is euthymic. She has had no aggression and no hallucinations. ASSESSMENT: Dementia. PLAN: The patient will be transitioned out of the hospital today. [facility] Her long-term prognosis is guarded. Supportive and educational interventions were made. TRANSINT:[id number] Voice Confirmation ID: [id number] DOCUMENT ID: [id number] NIKIA RUIZ MD at 1233 CC: [id number] DICTATION DATE: 10/17/19 1522 CONSULTING NURSE: 10/17/191913 DIS IN 10/17/19 [facility] [address] [place] [address]
== END 2019-10-17 13:30 | DRG 57 ==
LOC: D.PSYCH 16:59
PROVIDERS: ADMIT Psychiatry & Neurology Psychiatry; ATTEND Psychiatry & Neurology Psychiatry
DX: G30.1 Alzheimer's disease with late onset (principal); F02.81 Dementia in other diseases classified elsewhere, unspecified severity, with behavioral disturbance; K50.90 Crohn's disease, unspecified, without complications; N39.0 Urinary tract infection, site not specified; I42.9 Cardiomyopathy, unspecified; E03.9 Hypothyroidism, unspecified; I10 Essential (primary) hypertension; I25.10 Atherosclerotic heart disease of native coronary artery without angina pectoris; I65.21 Occlusion and stenosis of right carotid artery; K27.9 Peptic ulcer, site unspecified, unspecified as acute or chronic, without hemorrhage or perforation; M19.90 Unspecified osteoarthritis, unspecified site

== ENCOUNTER 2019-11-18 14:48 | Emergency (ER) | payer MEDICARE, BC ==
[~2019-11-18] VITALS: Ht 165.1 cm; Wt 68.2 kg
[~2019-11-18 14:48] MED LIST changes: +NAMENDA5 MG PO; +TIMOPTIC 0.5 % O5 ML EACH EYE; +TRUSOPT 2 % OPT10 ML EACH EYE
[2019-11-18 14:58] VITALS: Ht 165.1 cm; Wt 68.2 kg
[2019-11-18 15:23] LABS: APPEARANCE HAZY (CLEAR); COLOR YELLOW (YELLOW)
[2019-11-18 15:24] LABS: AMORPHOUS SEDIMENT >1+ /lpf (NONE SEEN); BACTERIA MANY /hpf (NEGATIVE); BILIRUBIN NEGATIVE (NEGATIVE); GLUCOSE NEGATIVE (NEGATIVE); GRANULAR CAST NONE SEEN /lpf (NONE SEEN); HYALINE CAST NONE SEEN /lpf (NONE SEEN); KETONE NEGATIVE (NEGATIVE); MUCUS <1+ /lpf (NONE SEEN); NITRITE NEGATIVE (NEGATIVE); PROTEIN 2+ mg/dL (NEGATIVE); RED CELL CAST NONE SEEN /lpf (NONE SEEN); RED CELLS - URINE 0-5 /hpf (0-5); SPECIFIC GRAVITY 1.015 (1.005-1.020); SPERMATOZOA NONE SEEN /hpf (NONE SEEN); UROBILINOGEN NORMAL (NORMAL); WAXY CAST NONE SEEN /lpf (NONE SEEN); YEAST NONE SEEN /hpf (NONE SEEN)
[2019-11-18] MEDS ORDERED: MACROBID100 MG PO (16:10)
[2019-11-18 16:23] VITALS: BP 138/80
== END 2019-11-18 16:26 | disposition home or self-care (01) ==
LOC: D.ER 14:48
PROVIDERS: Emergency Medicine
DX: N39.0 Urinary tract infection, site not specified (principal); E03.9 Hypothyroidism, unspecified; E78.5 Hyperlipidemia, unspecified; I25.2 Old myocardial infarction; I10 Essential (primary) hypertension; I25.10 Atherosclerotic heart disease of native coronary artery without angina pectoris; G62.9 Polyneuropathy, unspecified

== ENCOUNTER → 2019-11-20 17:31 | Outpatient (CLI) | payer MEDICARE, BC ==
[2019-11-18 14:58] VITALS: BMI 25.0
[2019-11-20 20:10] LABS: PHOSPHOROUS 2.6 mg/dL (2.5-4.9); POTASSIUM - SERUM 3.9 mmol/L (3.5-5.1)
== END | disposition home or self-care (01) ==
LOC: D.LABREF 17:31
PROVIDERS: ATTEND Family Medicine
DX: I25.10 Atherosclerotic heart disease of native coronary artery without angina pectoris (principal); I22.2 Subsequent non-ST elevation (NSTEMI) myocardial infarction

== ENCOUNTER 2020-04-20 20:57 | Inpatient (IN) | payer MEDICARE, BC ==
[~2020-04-20] VITALS: Ht 165.1 cm; Wt 59.9 kg
[2020-04-20 21:30] LABS: BASOPHILS 0.1 % (0-2); EOSINOPHILS 0 % (0-7); HEMOGLOBIN 13.7 g/dL (12-16); IMMATURE GRANULOCYTES 0.3 % (0-5); LYMPHOCYTES 15.6 % (15-50); MCH 30.4 pg (26.0-34.0); MCHC 34.3 g/dL (31.0-37.0); MCV 88.9 fL (80.0-100.0); MEAN PLATELET VOLUME 10.2 fL (7.4-10.4); MONOCYTES 5.6 % (2-11); NEUTROPHILS 78.4 % (40-80); PLATELET COUNT 330 10x3/uL (130-400); RDW 13.8 % (11.5-14.5); WBC 15.3 10x3/uL (4.8-10.8)
[2020-04-20 21:40] LABS: CALC OSMOLALITY 277 mosm/kg (275-300); CALCIUM 8.6 mg/dL (8.5-10.1); CARBON DIOXIDE 25.7 mmol/L (21.0-32.0); CHLORIDE - SERUM 103 mmol/L (98-107); CREATININE - SERUM 1.4 mg/dL (0.6-1.3); POTASSIUM - SERUM 3.2 mmol/L (3.5-5.1); SODIUM 137 mmol/L (136-145); UREA NITROGEN 22 mg/dL (7-18); eGFR NON AFRICAN AMERICAN 39 mL/min (90-120)
[2020-04-20 21:45] LABS: GLUCOSE 108 mg/dL (74-106)
[2020-04-20 21:52] LABS: APTT 26.3 SECONDS (22.8-39.4); INR 0.94 (0.85-1.17); PROTIME 12.6 SECONDS (11.6-15.0)
[2020-04-20 21:56] LABS: ALBUMIN 2.7 g/dL (3.4-5.0); ALKALINE PHOSPHATASE 172 U/L (30-120); ALT (SGPT) 58 U/L (10-68); BILIRUBIN - TOTAL 0.52 mg/dL (0.2-1.3); CREATINE KINASE 180 UL (21-215); MAGNESIUM - SERUM 1.5 mg/dL (1.8-2.4); PROTEIN - SERUM 6.1 g/dL (6.4-8.2); THYROID STIMULATING HORMONE 6.45 uIU/mL (0.36-3.74); TROPONIN-I 0.038 ng/mL (0.000-0.060)
[2020-04-20 22:02] LABS: BILIRUBIN NEGATIVE (NEGATIVE); GLUCOSE NEGATIVE (NEGATIVE); KETONE NEGATIVE (NEGATIVE); NITRITE NEGATIVE (NEGATIVE); UROBILINOGEN NORMAL (NORMAL)
[2020-04-20 22:10] LABS: UDS - AMPHET NEGATIVE QUAL (NEGATIVE); UDS - BARB NEGATIVE QUAL (NEGATIVE); UDS - BENZO NEGATIVE QUAL (NEGATIVE); UDS - COCAINE NEGATIVE QUAL (NEGATIVE); UDS - OPIATE NEGATIVE QUAL (NEGATIVE); UDS - PCP NEGATIVE QUAL (NEGATIVE); UDS - THC NEGATIVE QUAL (NEGATIVE)
[2020-04-20 22:19] VITALS: BP 189/80
[2020-04-20 23:06] VITALS: BP 134/59
--- NOTE | 2020-04-21 01:33 | NUR ---
PT TO ROOM 2103 VIA STRETCHER ACCOMPANIED BY HOSPITAL STAFF.
[2020-04-21 04:30] VITALS: BP 118/37
[2020-04-21 06:02] VITALS: BP 128/49; BMI 22.0
--- NOTE | 2020-04-21 07:20 | NUR ---
RECIEVE REPORT. ALERT AND ORIENTED X4. ASSIST UP TO BEDSIDE COMMODE. MINIMAL ASSISTANCE NEEDED. DENIES ANY NEEDS. NO SIGNS OF DISTRESS. CONTINUE PLAN OF CARE AND SAFETY PRECAUTIONS.
[2020-04-21 09:00] VITALS: BP 127/55
[2020-04-21 13:47] VITALS: BP 154/74
[2020-04-21 18:07] VITALS: BP 166/66
--- NOTE | 2020-04-21 18:18 | NUR ---
ALERT AND CONFUSED. REFUSES TO STAY IN ROOM OR CALL FOR HELP. BECOMES AGGRESSIVE WHEN REDIRECTED. NOTIFIED OF MONTERO STOOLS ADN AMS. CONTINUE PLAN OF CARE AND SAFETY PRECAUTIONS.
[2020-04-21 20:00] VITALS: BP 108/63
--- NOTE | 2020-04-21 21:05 | NUR ---
PT REPEATEDLY HAVING TO BE REDIRECTED BACK INTO HER ROOM, BEING UNCOOPERATIVE, ATTEMPTS TO REORIENT UNSUCCESSFUL, PT STATES "I'M LEAVING TO GET BRAS. I NEED TO RUN OUT AND LOTTERY SALES CLERK WHAT EVERYONE WANTS FOR DINNER." PRN ATIVAN ADMINISTERED, PER ORDER. PT STILL NONCOMPLIANT WITH REDIRECTION TO HER ROOM, PULLED ARM RAIL OFF WALL, CALLED STAFF "CUNTS", PT WAS INFORMED SHE WAS BEHAVING INAPPROPRIATELY, ATTEMPTED TO SCRATCH ANOTHER NURSE. PAGED URINALYSIS TECHNICIAN FOR DR. DAILEY.
--- NOTE | 2020-04-21 21:25 | NUR ---
SPOKE WITH DR. DAILEY, RECEIVED ORDER FOR [place] BED. PT PLACED IN RANJEET BED. OFFERED DRINK, SNACK, TOILETING, PT DECLINED. BED IN LOWEST, WHEELS LOCKED, CALL LIGHT WITHIN REACH IN BED. WILL CTM.
[2020-04-22] VITALS: BP 185/68
--- NOTE | 2020-04-22 01:30 | NUR ---
PT LYING IN BED WITH EYES CLOSED, RR EVEN AND NONLABORED, NO S/S OF DISTRESS, AROUSES EASILY TO VOICE. UNZIPPED BED, OFFERED TOILETING, PT DENIES NEED. CHANGED BRIEF. PT NPO PER ORDER FOR ABDOMINAL ULTRASOUND IN AM.
[2020-04-22 04:00] VITALS: BP 201/72
--- NOTE | 2020-04-22 05:30 | NUR ---
PT LYING IN BED WITH EYES CLOSED, RR EVEN AND NONLABORED, NO S/S OF DISTRESS, AROUSES EASILY TO VOICE. OFFERED TOILETING, DECLINED. UNZIPPED ENCLOSURE BED FOR 10 MINS BEFORE REZIPPING. PT BACK TO SLEEP, DID NOT ATTEMPT TO GET OOB. WILL CTM.
--- NOTE | 2020-04-22 07:20 | NUR ---
RECIEVE REPORT. RESTING IN RANJEET BED WITH EYES CLOSED. RANJEET BED ZIPPED UP. RESPIRATIONS EVEN NONLABORED. NO SIGNS OF DISTRESS. CONTINUE PLAN OF CARE AND SAFETY PRECAUTIONS.
[2020-04-22 08:19] LABS: ANION GAP 9.2 mmol/L (8-16); CALCIUM 8.4 mg/dL (8.5-10.1); POTASSIUM - SERUM 3.2 mmol/L (3.5-5.1)
[2020-04-22 08:20] LABS: BASOPHILS 0.2 % (0-2); EOSINOPHILS 1.3 % (0-7); HEMATOCRIT 39.7 % (36.0-48.0); HEMOGLOBIN 13.5 g/dL (12-16); IMMATURE GRANULOCYTES 0.1 % (0-5); LYMPHOCYTES 34.6 % (15-50); MCH 30.3 pg (26.0-34.0); MCV 89.2 fL (80.0-100.0); MEAN PLATELET VOLUME 10.3 fL (7.4-10.4); MONOCYTES 9.4 % (2-11); NEUTROPHILS 54.4 % (40-80); PLATELET COUNT 313 10x3/uL (130-400); RBC 4.45 10x6/uL (4.00-5.40); RDW 14.2 % (11.5-14.5)
[2020-04-22 08:21] LABS: WBC 10.4 10x3/uL (4.8-10.8)
[2020-04-22 09:35] VITALS: BP 146/62
--- NOTE | 2020-04-22 13:17 | CN ---
PATIENT NAME:LAILA BUCKNER MEDICAL RECORD: [id number] : 45 LOCATION:D. D.2103 ADMIT DATE: 04/21/20 ACCOUNT: [id number] CONSULTING PHYSICIAN: NIKIA RUIZ MD REFERRING PHYSICIAN: ADINA CISNEROS MD DATE OF CONSULTATION: 04/21/2020 IDENTIFYING DATA: The patient is 74 years old and she was admitted to the hospital secondary to confusion. CHIEF COMPLAINT: None. HISTORY OF PRESENT ILLNESS: The patient is currently on the medical floor for mental status changes. Basic evaluation of her medically and neurologically does not have any findings that can be addressed. She has a history of dementia. In fact, she has active prescription for Namenda. She is quite impaired. When I entered her room, she is sitting in the bed with the program or project administrator to the telephone that she is trying to hang up by clicking it together with the call light. I entangled both of them for and hang up the phone and she laughs and says that she has been having trouble all day. She is not oriented. She has short-term memory impairment. She is concrete to abstraction. ASSESSMENT: Dementia. PLAN: The patient is not capable of living at home. She is and has no children. She has had a significant change and needs to be transferred to the behavioral unit for further assessment, treatment, and if necessary alternate placement. TRANSINT:[id number] Voice Confirmation ID: [id number] DOCUMENT ID: [id number] NIKIA RUIZ MD at 1317 CC: [id number] DICTATION DATE: 04/21/20 1426 SENIOR ACCOUNTANT ANALYST: 04/21/20 1656 ADM IN [facility] [address] [place] [id number]
[2020-04-22 13:51] VITALS: Ht 165.1 cm; Wt 59.9 kg
[2020-04-22 14:33] VITALS: BP 170/65
--- NOTE | 2020-04-22 16:29 | NUR ---
CONFUSED. IN RANJEET BED ZIPPED UP. TALKING TO CHARACTERS ON TV. CONTINUE PLAN OF CARE AND SAFETY PRECAUTIONS.
--- NOTE | 2020-04-22 17:10 | NUR ---
CONFUSED. RANJEET BED OPEN TO EAT DINNER. STAFF AT BEDSIDE. CRYSTAL (NEIGHBOR) CALLS ASKING WHAT TO DO WITH DOGS, BEGINS YELLING AT PATIENT. CELL PHONE TURNED OFF AND PLACE IN BELONGINGS BAG WITH PURSE.
--- NOTE | 2020-04-22 19:00 | NUR ---
EVENING ROUNDS COMPLETE. PT SITTING UP IN RANJEET BED, NO SIGNS OF DISTRESS. PT DENIES ANY PAIN OR NEEDS AT THIS TIME. CL IN REACH, BED IN LOWEST POSITION.
[2020-04-22 19:01] VITALS: BP 186/79
[2020-04-22 20:00] VITALS: BP 183/55
[2020-04-23] VITALS: BP 206/76
[2020-04-23 04:00] VITALS: BP 215/87
[2020-04-23 06:41] LABS: BASOPHILS 0.2 % (0-2); EOSINOPHILS 1.1 % (0-7); HEMATOCRIT 39.4 % (36.0-48.0); HEMOGLOBIN 13.5 g/dL (12-16); IMMATURE GRANULOCYTES 0.2 % (0-5); LYMPHOCYTES 27.6 % (15-50); MCH 30.5 pg (26.0-34.0); MCHC 34.3 g/dL (31.0-37.0); MCV 89.1 fL (80.0-100.0); MEAN PLATELET VOLUME 9.8 fL (7.4-10.4); NEUTROPHILS 62.9 % (40-80); PLATELET COUNT 301 10x3/uL (130-400); RBC 4.42 10x6/uL (4.00-5.40); RDW 14.1 % (11.5-14.5); WBC 12.6 10x3/uL (4.8-10.8)
[2020-04-23 06:48] LABS: ANION GAP 12.2 mmol/L (8-16); CALCIUM 8.4 mg/dL (8.5-10.1); CARBON DIOXIDE 25.5 mmol/L (21.0-32.0)
[2020-04-23 06:49] LABS: POTASSIUM - SERUM 3.7 mmol/L (3.5-5.1)
[2020-04-23] MEDS ORDERED: CATAPRES0.1 MG PO (07:08)
[2020-04-23] MEDS ORDERED: NORVASC2.5 MG PO (07:08)
[2020-04-23] MEDS ORDERED: NAMENDA5 MG PO (07:08)
--- NOTE | 2020-04-23 08:40 | MORECARE ---
CASE MANAGEMENT DISCHARGE SUMMARY PATIENT: LAILA BUCKNER UNIT: [id number] ADM DATE: 04/21/20 AGE: 74 : 45 SEX: F ROOM/BED: D.2103 AUTHOR: MIKEY CASTILLO PHYSICIAN: REFERRING PHYSICIAN: ADINA CISNEROS MD DATE OF SERVICE: 04/23/20 Discharge Plan Patient Name: LAILA BUCKNER Facility: [facility]:[place] : 1945 Planned Disposition: Psych facility Anticipated Discharge Date: 04/23/20 Discharge Date: Expected LOS: 2 Initial Reviewer: [email or web address] Initial Review Date: 04/23/2020 Generated: 04/23/20 9:39 am Patient Name: LAILA BUCKNER Page [phone] at 0840 All edits/amendments must be made on the electronic document DICTATION DATE: 04/23/20838 DIRECTOR OF OUTREACH: ERIN 04/23/20 0839 RPT#: [id number] DC DATE: STATUS: ADM IN [facility] [address] [place] [address] END OF REPORT
--- NOTE | 2020-04-23 08:47 | MORECARE ---
CASE MANAGEMENT DISCHARGE SUMMARY PATIENT: LAILA BUCKNER UNIT: [id number] ADM DATE: 04/21/20 AGE: 74 : 45 SEX: F ROOM/BED: D.2103 AUTHOR: MIKEY CASTILLO PHYSICIAN: REFERRING PHYSICIAN: ADINA CISNEROS MD DATE OF SERVICE: 04/23/20 Discharge Plan Patient Name: LAILA BUCKNER [facility] [facility] 1945 Planned Disposition: Psych facility Anticipated Discharge Date: 04/23/20 Discharge Date: Expected LOS: 2 Initial Reviewer: [email or web address] Initial Review Date: 04/23/2020 Generated: 04/23/20 9:46 am Comments DCP- Discharge Planning Updated by [email or web address]: Bri Paul on 04/23/20 7:[address] CM received discharge to care home. I attempted to call [facility] listed on Face sheet, Marisel Kruger. Marisel states they have not had contact with patient since last November. I emailed Cait Houston to remove from face sheet. I attempted to call neighbor listed as contact (Laurendarling Manriquez) at [phone] with no answer. Patient to [facility] to [facility] today. Last DP export: 04/23/20 7:40 a Patient Name: LAILA BUCKNER Page [phone] at 0847 All edits/amendments must be made on the electronic document DICTATION DATE: 04/23/20845 AUTOMATIC OPERATOR: ERIN 04/23/20845 RPT#: [id number] DC DATE: STATUS: ADM IN [facility] [address] [place] [address] END OF REPORT
[2020-04-23 09:24] VITALS: BP 151/95
[2020-04-23 11:00] VITALS: BP 170/73
--- NOTE | 2020-04-23 11:01 | NUR ---
CALL REPORT TO LYNN YATES IN [facility]. ROOM NOT READY. TRUDY TO CALL WHEN ROOM IS READY.
--- NOTE | 2020-04-23 14:50 | PN ---
PATIENT:LAILA BUCKNER MEDICAL RECORD: [id number] LOCATION:D.[facility].210 ADMISSION DATE: 04/21/20 PROGRESS NOTE DATE OF SERVICE: 04/22/2020 SUBJECTIVE: The patient's case was discussed with staff. She has no new complaint. OBJECTIVE: The patient is disorganized and poorly oriented. She denies that she would seek to harm herself or others and I see no evidence of aggression. ASSESSMENT: Dementia. PLAN: The patient is significantly impaired and unable to care for herself. Unless other arrangements have been made for her, she should be transferred to the behavioral unit for treatment of her underlying confusion and agitation. We would also be able to assist with the placement in a safe environment if that is required. TRANSINT:[id number] Voice Confirmation ID: [id number] DOCUMENT ID: [id number] NIKIA RUIZ MD at 1450 CC: [id number] DICTATION DATE: 04/22/20 1428 FINANCIAL SUPERVISOR: 04/22/20 2244 ADM IN [place] [id number] [place] [address]
--- NOTE | 2020-04-23 15:27 | NUR ---
TAKEN TO [facility] VIA WHEELCHAIR. REMAINS FREE FROM INJURY.
--- NOTE | 2020-04-24 08:05 | MORECARE ---
CASE MANAGEMENT DISCHARGE SUMMARY PATIENT: LAILA BUCKNER UNIT: [id number] ADM DATE: 04/21/20 AGE: 74 : 45 SEX: F ROOM/BED: D.210 AUTHOR: MIKEY CASTILLO PHYSICIAN: REFERRING PHYSICIAN: ADIAN CISNEROS MD DATE OF SERVICE: 04/24/20 Discharge Plan Patient Name: LAILA BUCKNER Facility: [facility]:[place] : 1945 Planned Disposition: Psych facility Anticipated Discharge Date: 04/23/20 Discharge Date: 04/23/2020 Expected LOS: 2 Initial Reviewer: [email or web address] Initial Review Date: 04/23/2020 Generated: 04/24/20 9:05 am Comments DCP- Discharge Planning Updated by [email or web address]: Bri Paul on 04/23/20 7:[address] CM received discharge to shelter. I attempted to call [facility] listed on Face sheet, Marisel Kruger. Marisel states they have not had contact with patient since last November. I emailed Cait Houston to remove from face sheet. I attempted to call neighbor listed as contact (Lauren Manriquez) at [phone] with no answer. Patient to discharge to Care Home today. Last DP export: 04/23/20 7:47 a Patient Name: LAILA BUCKNER Page [phone] at 0805 All edits/amendments must be made on the electronic document DICTATION DATE: 04/24/20804 COURT RECORDER: ERIN 04/24/20 08 RPT#: [id number] DC DATE:04/23/20 STATUS: DIS IN [facility] [address] [place] [place] [address] END OF REPORT
== END 2020-04-23 15:28 | disposition short-term general hospital (02) | DRG 884 ==
LOC: D.ER 20:57 → D.M2 04-21 00:48 → D.ER 04-21 00:59 → D.M2 04-23 15:28
PROVIDERS: Emergency Medicine; Family Medicine; ADMIT Family Medicine; ATTEND Family Medicine
DX: F03.91 Unspecified dementia, unspecified severity, with behavioral disturbance (principal); R64 Cachexia; F32.9 Major depressive disorder, single episode, unspecified; I10 Essential (primary) hypertension; H40.9 Unspecified glaucoma; Z68.22 Body mass index [BMI] 22.0-22.9, adult; E03.9 Hypothyroidism, unspecified; E83.42 Hypomagnesemia; K52.9 Noninfective gastroenteritis and colitis, unspecified; R51 Headache

== ENCOUNTER 2020-04-23 12:57 | Inpatient (IN) | payer MEDICARE, BC ==
[~2020-04-23] VITALS: Ht 165.1 cm; Wt 56.9 kg
[~2020-04-23 12:57] MED LIST changes: +CATAPRES0.1 MG PO; +NORVASC2.5 MG PO
[2020-04-23 16:14] VITALS: BP 177/92
--- NOTE | 2020-04-23 16:31 | NUR ---
PT ADMITTED FROM RM 2103 AT [facility]. PT IS VERY CONFUSED. UNSTEADY NEEDS ASSISTANCE AT ALL TIMES. CODE # 2291. VERBAL CONSENT RECEIVED PER EVELYN SANTIAGO. CONTACT # [phone]. PT IS DNR. PT ADMITTED FOR ALTERED THOUGHT PROCESS.
[2020-04-23 17:46] LABS: BASOPHILS 0.3 % (0-2); HEMATOCRIT 43.5 % (36.0-48.0); IMMATURE GRANULOCYTES 0.2 % (0-5); LYMPHOCYTES 34.3 % (15-50); MCH 30.9 pg (26.0-34.0); MCHC 34.5 g/dL (31.0-37.0); MCV 89.5 fL (80.0-100.0); MEAN PLATELET VOLUME 9.8 fL (7.4-10.4); MONOCYTES 7.7 % (2-11); NEUTROPHILS 56.5 % (40-80); PLATELET COUNT 341 10x3/uL (130-400); RBC 4.86 10x6/uL (4.00-5.40); RDW 14.2 % (11.5-14.5); WBC 12.5 10x3/uL (4.8-10.8)
[2020-04-23 18:27] LABS: ALBUMIN 2.9 g/dL (3.4-5.0); ANION GAP 11.9 mmol/L (8-16); BILIRUBIN - TOTAL 0.85 mg/dL (0.2-1.3); CALCIUM 8.9 mg/dL (8.5-10.1); CARBON DIOXIDE 26.8 mmol/L (21.0-32.0); LDL-HDL RATIO 0.9 ratio (1.5-3.5); POTASSIUM - SERUM 3.7 mmol/L (3.5-5.1); PROTEIN - SERUM 6.7 g/dL (6.4-8.2); THYROID STIMULATING HORMONE 5.29 uIU/mL (0.36-3.74)
--- NOTE | 2020-04-23 18:37 | NUR ---
PT BELONGINGS SENT TO ER FOR LOCK UP. SEE ATTACHED SHEET IN DISCHARGE SECTION. PURSE AND RED SHOES LOCKED IN STORAGE ROOM IN PT'S BIN IN BAG LABELED WITH PTS STICKER.
--- NOTE | 2020-04-23 19:45 | NUR ---
V/S ON ARRIVAL 97.5-T, 177/92, 82, 14, 99% O2 SAT. ADMIT WT 117.6
[2020-04-23 20:54] VITALS: BP 80/58
[2020-04-23 22:33] VITALS: BP 177/92; BMI 19.6
--- NOTE | 2020-04-24 01:27 | NUR ---
B) Patient is alert and oriented to self, wanders and is intrusive with other patients and with staff, hallucinating about taking care of dogs, I) Administered scheduled medications as ordered, redirected as needed, R) mediation compliant, resting now quietly in her bed, P) Continue plan of care.
[2020-04-24 06:10] LABS: RAPID PLASMA REAGIN Non Reactive (Non Reactive)
[2020-04-24 07:58] LABS: BACTERIA MANY /hpf (NEGATIVE); BILIRUBIN NEGATIVE (NEGATIVE); EPITHELIAL CELLS OCC /hpf (0-5); GLUCOSE NEGATIVE (NEGATIVE); KETONE NEGATIVE (NEGATIVE); NITRITE POSITIVE (NEGATIVE); RED CELLS - URINE RARE /hpf (0-5); SPECIFIC GRAVITY 1.015 (1.005-1.020); UROBILINOGEN NORMAL (NORMAL); WHITE CELLS - URINE 25-50 /hpf (NEGATIVE)
[2020-04-24 09:46] VITALS: BP 140/90
--- NOTE | 2020-04-24 13:15 | NUR ---
PT SITTING IN CHAIR WITH EYES CLOSED. PT IS CONFUSION AND TALKING ABOUT DOGS. PT IS ALERT AND ORIENTED TO SELF ONLY. PT CAN MAKE NEEDS KNOWN. PT IS COMPLIANT WITH MEDS, VITALS AND ASSESSMENTS. WILL CONT PLAN OF CARE.
[2020-04-24 15:32] VITALS: Ht 165.1 cm; Wt 56.9 kg
[2020-04-24 20:00] VITALS: BP 135/80
--- NOTE | 2020-04-25 00:54 | NUR ---
PATIENT BECAME INCREASINGLY CONFUSED THE NIGHT PROCEEDED. SHE WAS "LOOKING" FOR HER MEDICINE ALL OVER THE DAYROOM AFTER SHE HAD BEEN TOLD SEVERAL TIMES THAT SHE HAD RECEIVED HER MEDICATION EARLIER. SHE WAS A LITTLE AGITATED WITH BEING "REDIRECTED". WILL FOLLOW POC
--- NOTE | 2020-04-25 08:15 | NUR ---
B) PATIENT IS ALERT TO SELF ONLY,BUT WITH A LOTS OF CONFUSION NOTED. SHE ID CALM AND COOPERATIVE WITH ASSESSMENT AND STAFF. I) ADMINISTERED SCHEDULED MEDICATIONS, MONITORED FOR SAFETYAND FOR NEEDS. R) MEDICATION AND ASSESSMENT COMPLIANT. PLEASANT AND SOCIAL TOWARDS STAFF. P) CONTINUE PLAN OF CARE AND MONITOR FOR CHANGES IN BEHAVIOR.
[2020-04-25 08:22] VITALS: BP 118/79
[2020-04-25 08:24] VITALS: BP 186/73
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
--- NOTE | 2020-04-25 19:54 | NUR ---
PATIENT SITTING IN DAYROOM WORKING ON A PUZZLE, CONTENT AND CALM HOWEVER SHE IS INTRUSIVE AND BECOMES CONFUSED IN THE EVENING TIMES. RECEIVED IN REPORT THAT SHE HAS A UTI WHICH IS PROBABLY CONTRIBUTING TO SOME OF HER CONFUSION. COMPLIANT WITH MEDS. WILL FOLLOW POC
[2020-04-25 20:00] VITALS: BP 123/60
--- NOTE | 2020-04-26 08:15 | NUR ---
The patient is bizarre this am, she says "I'll be leaving out right after breakfast, I need to get a new cell phone." She is wandering in the unit and says "I'm just going to look around and see what has changed." She also said "I won't open any doors." She has poor insight into her situation. Provide prescribed meds. Continue to monitor her behavior. Continue POC.
[2020-04-26 10:55] VITALS: BP 148/64
--- NOTE | 2020-04-26 15:23 | NUR ---
The patient is calling for her puppies and she is redirected and she will say "ok" but then in a couple of minutes she will say "Here puppies." Continue to redirect.
--- NOTE | 2020-04-26 18:28 | NUR ---
The patient is more confused this evening she keeps getting everyone's tray and carrying it away then she got her tray and she it then she started pulling her pants down to go to the bathroom. Staff had to redirect she is not easily redirected this pm.
[2020-04-26 20:00] VITALS: BP 135/63
--- NOTE | 2020-04-27 02:14 | NUR ---
B) Patient is alert and oriented to self, intrusive at times with other patients, hallucinating at times (visual) I) Administered scheduled medications as ordered, monitored for safety, redirected and oriented as needed, R) Mediation compliant, oleasant and very confused, P) Continue plan of care.
[2020-04-27 10:30] VITALS: BP 147/71
--- NOTE | 2020-04-27 17:11 | NUR ---
RECEIVED UP IN CHAIR THIS AM.ORIENTED TO SELF ONLY.COMPLIANT WITH STAFF AND MEDS.AMBULATORY.NO BEHAVIORS OBSERVE.WILL CONTINUE WITH CURRENT PLAN OF CARE,MONITOR FOR CHANGES AND SAFETY.
[2020-04-27 20:00] VITALS: BP 163/66
--- NOTE | 2020-04-28 00:32 | NUR ---
B) Patient is alert and oriented to self, very confused and intrusive with staff and other patients, wanders into other patients rooms and is difficult to redirect I) Administered scheduled medications as ordered, redirected as needed, R) Medication compliant, settled down now and sleeping in her own room P) Continue plan of care.
[2020-04-28 11:18] LABS: HEMATOCRIT 37.8 % (36.0-48.0); HEMOGLOBIN 12.6 g/dL (12-16); LYMPHOCYTES 13.6 % (15-50); MCH 30.1 pg (26.0-34.0); MCHC 33.3 g/dL (31.0-37.0); MCV 90.4 fL (80.0-100.0); MEAN PLATELET VOLUME 9.7 fL (7.4-10.4); NEUTROPHILS 79.3 % (40-80); PLATELET COUNT 294 10x3/uL (130-400); RBC 4.18 10x6/uL (4.00-5.40); RDW 15.4 % (11.5-14.5)
[2020-04-28 11:27] LABS: ANION GAP 8.8 mmol/L (8-16); CALCIUM 8.2 mg/dL (8.5-10.1); CARBON DIOXIDE 29.5 mmol/L (21.0-32.0); CREATININE - SERUM 1.3 mg/dL (0.6-1.3); POTASSIUM - SERUM 3.3 mmol/L (3.5-5.1)
[2020-04-28 12:57] VITALS: BP 143/68
--- NOTE | 2020-04-28 16:16 | NUR ---
RECEIVED SITTING UP IN RECLINER THIS AM.EYES CLOSED BUT DOES AROUSE TO TOUCH BUT CLOSES EYES IMMEDIATELY.IS VERY CONFUSED AND DISORIENTED.COMPLIANT WITH MEDS AND STAFF WHEN AWAKE.FSBS DONE AT 0910 PER VERBAL ORDER OF DR SUN,93.WILL CONTINUE WITH CURRENT PLAN OF CARE,MONITOR FOR CHANGES AND SAFETY.
--- NOTE | 2020-04-28 18:20 | NUR ---
SPOKE WITH A COUSIN, SHIVANI SANTIAGO FOR AN UPADATE ON PATIENT'S STATUS. SHE WILL BE TALKING TO MARY GRAY, OFFICE LEAD NEXT WEEK.
[2020-04-28 20:00] VITALS: BP 110/46
--- NOTE | 2020-04-28 20:49 | NUR ---
RECEIVED IN DAYROOM. SITTING IN A CHAIR WITH PEERS AT HER SIDE. CALM AND COOPERATIVE WITH CARE AND ASSESSMENT. CONFUSED. ENCOURAGE TO EXPRESS NEEDS. REDIRECT AND REORIENT NEEDED. CONTINUES TO SIT CALMLY IN DAYROOM. CONTINUE PLAN OF CARE.
[2020-04-29 10:28] VITALS: BP 141/51
--- NOTE | 2020-04-29 12:00 | NUR ---
RECEIVED IN HALLWAY OUTSIDE OF NURSES STATION. CALM AND COOPERATIVE WITH CARE AND ASSESSMENT. NO BEHAVIORS TODAY. REDIRECT AND REORIENT NEEDED. EATING LUNCH AT THIS TIME. CONTINUE PLAN OF CARE.
--- NOTE | 2020-04-29 12:04 | NUR ---
Nutrition Follow-up: Diet: Regular no added salt + Ensure with meals PO intake: ~41% average x last 9 meals Last BM: 04/21/20 (per nursing flowsheet); 04/27/20 (per MD notes) WT: 119# (04/28/20); Admit Wt: 117.6# (04/23/20) Labs and meds reviewed. Recommend continue current diet and oral nutrition supplements. Recommend encouraged PO intake at meal times. RD following.
--- NOTE | 2020-04-29 12:30 | NUR ---
THIS NURSE ASKED PT PER PILOT PLANT OPERATOR REQUEST IF PT WOULD ALLOW HER KEYS TO BE RELEASED TO FRIEND AT THIS TIME. PT STATED " NO I DO NOT THINK SO." INFORMATION REPORTED TO PILOT PLANT OPERATOR AND DIRECTOR AT THIS TIME.
--- NOTE | 2020-04-29 14:14 | PN ---
PATIENT:LAILA BUCKNER MEDICAL RECORD: [id number] LOCATION:[facility] ADMISSION DATE: 04/23/20 PROGRESS NOTE DATE OF SERVICE: 04/25/2020 SUBJECTIVE: The patient's case was discussed with staff. She has no new complaint. OBJECTIVE: The patient is in good behavioral control with limited insight about her condition. She has some delusional activity and was quite agitated last night. ASSESSMENT: Dementia. PLAN: I am going to continue current medications on her. She has pretty limited insight about things and thinking that perhaps this might have been an isolated event. TRANSINT:[id number] Voice Confirmation ID: [id number] DOCUMENT ID: [id number] NIKIA RUIZ MD at 1414 CC: [id number] DICTATION DATE: 04/25/20 1633 FIRMWARE MANAGER: 04/26/20 0000 ADM IN [facility] [address] [id number]
[2020-04-29 20:38] VITALS: BP 104/64
--- NOTE | 2020-04-29 23:00 | NUR ---
RECEIVED IN DAYROOM. SITTING IN A CHAIR WITH PEERS AT HER SIDE. CALM AND COOPERATIVE WITH CARE AND ASSESSMENT. SOCIAL WITH PEERS. ENCOURAGE TO EXPRESS NEEDS. REDIRECT AND REORIENT NEEDED. RESTING IN BED WITH EYES CLOSED AT THIS TIME. CONTINUE PLAN OF CARE.
[2020-04-30 08:07] VITALS: BP 154/66
--- NOTE | 2020-04-30 10:04 | NUR ---
SW SPOKE TO PT'S COUSIN IN [place], MAXIMILIAN OSWALD. SW EXPLAINED THAT PT IS NOT ABLE TO GO BACK TO THE HOME ENVIRONMENT WITHOUT 24/7 SUPERVISION. SW WILL CALL APS DUE TO PT NOT HAVING A GUARDIAN OR POA. MAXIMILIAN VOICED UNDERSTANDING OF CONVERSATION AND WAS GLAD TREATMENT TEAM AND HER WERE ON THE SAME PAGE.
--- NOTE | 2020-04-30 12:00 | NUR ---
RECEIVED IN HALLWAY OUTSIDE OF NURSES STATION. CALM AND COOPERATIVE WITH CARE AND ASSESSMENT. NO BEHAVIORS. REDIRECT AND REORIENT NEEDED. EATING AT THIS TIME. CONTINUE PLAN OF CARE.
--- NOTE | 2020-04-30 15:31 | PN ---
PATIENT:LAILA BUCKNER MEDICAL RECORD: [id number] LOCATION:[facility] ADMISSION DATE: 04/23/20 PROGRESS NOTE DATE OF SERVICE: 04/29/2020 SUBJECTIVE: The patient's case was discussed with staff. She has no new complaint. OBJECTIVE: The patient is significantly calmer. She is partially oriented. She denies that she would seek to harm herself or others. ASSESSMENT: Dementia. PLAN: Current medicines have been reviewed and will be maintained. Long-term prognosis is guarded. Both supportive and educational interventions were made. TRANSINT:[id number] Voice Confirmation ID: [id number] DOCUMENT ID: [id number] NIKIA RUIZ MD at 1531 CC: [id number] DICTATION DATE: 04/29/20 1604 PIPE CLEANER: 04/30/20 0220 ADM IN [place] [address] [place] [address]
[2020-04-30 19:24] VITALS: BP 150/69
--- NOTE | 2020-05-01 00:44 | NUR ---
RECEIVED IN DAYROOM. SITTING IN A CHAIR WITH PEERS AT HER SIDE. CALM AND COOPERATIVE WITH CARE AND ASSESSMENT. ENCOURAGE TO EXPRESS NEEDS. REDIRECT AND REORIENT NEEDED. RESTING IN BED WITH EYES CLOSED. CONTINUE PLAN OF CARE.
[2020-05-01 07:56] VITALS: BP 149/80
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
--- NOTE | 2020-05-01 14:19 | NUR ---
Nutrition Follow-up: Diet: No added salt + Ensure TID PO intake: ~54% average x last 9 meals Last BM: 05/01/20 (per MD notes). WT: 119# (04/28/20); Admit WT: 117.6# Meds and labs reviewed. Recommend continue current diet and oral nutrition supplement. RD following.
--- NOTE | 2020-05-01 17:56 | NUR ---
PT IS AWAKE AND ALERT TO PERSON ONLY. CALM AND COOPERATIVE WITH ASSESSMENT. PRESCRIBED MEDS PROVIDED ORDERED. MED COMPLIANT. NO BEHAVIORS NOTED AT THIS TIME. FALL PRECAUTIONS IN PLACE. WILL CPOC.
[2020-05-01 20:47] VITALS: BP 141/57
--- NOTE | 2020-05-02 01:43 | NUR ---
B.) PT IS ALERT AND ORIENTED TO SELF AND SITUATION. SHE IS ABLE TO MAKE HER NEEDS KNOWN. SHE IS RECEIVED IN THE DAYROOM SOCIALIZING WITH HER PEERS. SHE IS CALM, COOPERATIVE AND PLEASANT. I.) PROVIDED PM MEDICATIONS PRESCRIBED. REDIRECT OFTEN. R.) COMPLIANT WITH ALL MEDICATIONS. EASY TO REDIRECT. P.) WILL CONTINUE TO MONITOR.
[2020-05-02 09:51] VITALS: BP 168/62
--- NOTE | 2020-05-02 14:00 | NUR ---
B) PATIENT IS ALERT AND ORIENTED TO SELF AND SITUATION, CALM AND COOPERATIVE WITH STAFF. SHE IS SOCIAL WITH PEERS. I) ADMINISTERED SCHEULED MEDICATIONS, MONITOR FOR SAFETY AND NEEDS. R) COMPLIANT WITH MEDICATIONS REDIRECT NEEDED. P) CONTINUE PLAN OF CARE.
--- NOTE | 2020-05-02 15:32 | PN ---
PATIENT:LAILA BUCKNER MEDICAL RECORD: [id number] LOCATION:[facility] ADMISSION DATE: 04/23/20 PROGRESS NOTE DATE OF SERVICE: 05/01/2020 SUBJECTIVE: The patient's case was discussed with staff. She has no new complaint. OBJECTIVE: The patient denies intent to harm herself or others. She is quite pleasant, but I did not discuss with her the placement. When that comes up, she becomes angry. Otherwise, she seems contented to sit here in the hospital, which of course she cannot do long-term. ASSESSMENT: Dementia. PLAN: The patient is probably at or very close to maximum hospital benefit. At this point, the main issue is related to placement, which is complicated with her income, assets and the alleged criminal behavior on the part of the realtor. Adult protective services is going to help sort this out. They have the authority and ability to do this and once appropriate placement is arranged, the patient will be transitioned out of the hospital. TRANSINT:[id number] Voice Confirmation ID: [id number] DOCUMENT ID: [id number] NIKIA RUIZ MD at 1532 CC: [id number] DICTATION DATE: 05/01/20 1620 BUSINESS APPLICATIONS ANALYST: 05/02/20 0214 ADM IN [facility] [address] [place] [address]
[2020-05-02 20:23] VITALS: BP 150/55
--- NOTE | 2020-05-03 01:54 | NUR ---
B) Patient is alert and oriented to person and place, calm and cooperative this shift, no hallucinations noted I) Adminstered scheduled medications as ordered, monitored for behaviors, R) mediation complait, played cards with peers, P) Continue plan of care.
--- NOTE | 2020-05-03 09:52 | PN ---
PATIENT:LAILA BUCKNER MEDICAL RECORD: [id number] LOCATION:[facility] ADMISSION DATE: 04/23/20 PROGRESS NOTE DATE OF SERVICE: 05/02/2020 SUBJECTIVE: The patient's case was discussed with staff. She has no new complaint. OBJECTIVE: The patient is in good behavioral control. She has poor insight about her situation. She is tolerating her medicines well. ASSESSMENT: Dementia. PLAN: The patient is now willing to consider alternate placement. I think that this is a breakthrough and I will have the high school social studies teacherMitchell talk to her about possible alternatives to living independently. TRANSINT:[id number] Voice Confirmation ID: [id number] DOCUMENT ID: [id number] NIKIA RUIZ MD at 0952 CC: [id number] DICTATION DATE: 05/02/201649 SINKER PULLER: 05/02/20 2346 ADM IN [facility] [address] [id number]
[2020-05-03 11:01] VITALS: BP 148/70
--- NOTE | 2020-05-03 11:49 | NUR ---
The patient is awake and alert she is pleasant and calm, she interacts well with staff and peers. She has poor short term memory and she has poor insight into her situation. She ambulates independently. Provide prescribed meds. The patient is compliant with meds and unit milieu. Continue POC.
--- NOTE | 2020-05-03 19:58 | NUR ---
RECEIVED PATIENT SITTING IN DAYROOM PLAYING A GAME WITH TWO OTHER RESIDENTS, SHE IS CONFUSED, SHE IS HAVING A HARD TIME FOLLOWING THE GAME. SHE HAS POOR INSIGHT AND IS GETTING EASILY AGITATED. WILL FOLLOW POC
[2020-05-03 20:00] VITALS: BP 117/53
--- NOTE | 2020-05-04 08:08 | NUR ---
The patient is awake and alert. She is pleasant and calm, she is oriented x3, but she has poor short term memory. She realizes her memory is less than it used to be. She enjoys conversing with staff and peers. Provide prescribed meds. The patient is compliant with meds. Continue POC.
[2020-05-04 10:25] VITALS: BP 144/66
--- NOTE | 2020-05-04 12:00 | NUR ---
Obtained specimen for COVID, sent to lab.
[2020-05-04 20:42] VITALS: BP 147/55
--- NOTE | 2020-05-04 21:23 | NUR ---
RECEIVED PATIENT IN DAYROOM INTERACTING WITH OTHERS. THEN CAME TO THE NURSE'S STATION AND SHE WAS PLEASANT, COMPLIANT WITH MEDS. BED ALARM ON AND CALL MERRITT WITHIN REACH.
[2020-05-05 09:48] VITALS: BP 173/76
--- NOTE | 2020-05-05 13:02 | NUR ---
PT IS SITTING IN RECLINING CHAIR IN DAYROOM WITH PEERS. CALM AND COOPERATIVE WITH ASSESSMENT. PRESCRIBED MEDS PROVIDED ORDERED. MED COMPLIANT. REDIRECT AND REORIENT NEEDED. FALL PRECAUTIONS IN PLACE. NO BEHAVIORS NOTED AT THIS TIME. WILL CPOC.
[2020-05-05 21:08] VITALS: BP 154/49; BP 183/51
--- NOTE | 2020-05-05 23:05 | NUR ---
RECEIVED IN DAYROOM. SITTING IN A CHAIR WITH PEERS AT HER SIDE. CALM AND COOPERATIVE WITH CARE AND ASSESSMENT. ENCOURAGE TO EXPRESS NEEDS. REDIRECT AND REORIENT NEEDED. RESTING IN BED WITH EYES CLOSED AT THIS TIME. CONTINUE PLAN OF CARE.
[2020-05-06 08:37] VITALS: BP 137/75
--- NOTE | 2020-05-06 12:00 | NUR ---
RECEIVED IN HALLWAY OUTSIDE OF NURSES STATION. CALM AND COOPERATIVE WITH CARE AND ASSESSMENT. NO BEHAVIORS NOTED. REDIRECT AND REORIENT NEEDED. EATING AT THIS TIME. CONTINUE PLAN OF CARE.
[2020-05-06 20:06] VITALS: BP 159/57
[2020-05-07 09:05] VITALS: BP 138/67
--- NOTE | 2020-05-07 13:20 | PN ---
PATIENT:LAILA BUCKNER MEDICAL RECORD: [id number] LOCATION:[facility] ADMISSION DATE: 04/23/20 PROGRESS NOTE DATE OF SERVICE: 05/06/2020 SUBJECTIVE: The patient's case was discussed with staff. She has no new complaint. OBJECTIVE: The patient is in good behavioral control. She has poor insight about her situation. ASSESSMENT: Dementia. PLAN: The patient may be transitioned out of the hospital as soon as appropriate setting can be arranged. She tells me that she has been turned down by the long-term, but the nursing home social worker does not know anything about that and has information that is contradictory. She is going to sort this matter out and as soon as appropriate placement can be arranged, the patient will be discharged. TRANSINT:[id number] Voice Confirmation ID: [id number] DOCUMENT ID: [id number] NIKIA RUIZ MD at 1320 CC: [id number] DICTATION DATE: 05/06/20 1634 COMBATANT DIVER OFFICER: 05/07/20 0019 ADM IN [id number] [place] [address]
[2020-05-07 19:56] VITALS: BP 137/50
--- NOTE | 2020-05-07 22:39 | NUR ---
RECEIVED IN DAYROOM. SITTING IN A CHAIR WITH PEERS AT HER SIDE. SOCIAL WITH PEERS. CALM AND COOPERATIVE WITH CARE AND ASSESSMENT. NO SIGMS OF AGGRESSION. REDIRECT AND REORIENT NEEDED. RESTING IN BED WITH EYES CLOSED AT THIS TIME. CONTINUE PLAN OF CARE.
[2020-05-08 09:57] VITALS: BP 153/58
--- NOTE | 2020-05-08 13:00 | NUR ---
RECEIVED IN HALLWAY IN CHAIR, CALM AND COOPERATIVE WITH CARE AND ASSESSMENT. NO AGGRESSIVE BEHAVIOR NOTED. REDIRECT AND REORIENT NEEDED, SOCIAL WITH PEERS AND STAFF. COMPLIANT WITH TAKING MEDICATION. CONTINUE PLAN OF CARE.
--- NOTE | 2020-05-08 14:24 | NUR ---
Nutrition Follow-up: PO intake improved. Feeds self. Diet: No Added Salt, Ensure TID PO intake: 93% avg x 9 meals Wt: 125# (05/05); 119# (04/28); 117.6# (04/24) Last BM: 05/05 Labs reviewed Meds noted: Micro K, Protonix -Monitor wt. -RD following.
--- NOTE | 2020-05-08 15:36 | PN ---
PATIENT:LAILA BUCKNER MEDICAL RECORD: [id number] LOCATION:[facility] ADMISSION DATE: 04/23/20 PROGRESS NOTE DATE OF SERVICE: 05/07/2020 SUBJECTIVE: The patient's case was discussed with staff. She has no new complaint. OBJECTIVE: The patient denies that she would seek to harm herself or others. She is in good behavioral control with a euthymic mood. ASSESSMENT: Dementia. PLAN: The patient's next of kin is her niece. We need the niece to assist with placement, which she is willing to do, but her apparently has gotten sick acutely. As soon as financial arrangements can be made with the nursing home, the patient will be transitioned there. TRANSINT:[id number] Voice Confirmation ID: [id number] DOCUMENT ID: [id number] NIKIA RUIZ MD at 1536 CC: [id number] DICTATION DATE: 05/07/20 1554 ASSOCIATE SOFTWARE DEVELOPER: 05/08/20 0122 [facility] IN [id number] [place] [address]
[2020-05-08 20:00] VITALS: BP 132/55
--- NOTE | 2020-05-08 23:19 | NUR ---
PATIENT HAS TIMES OF CONFUSION AND TIMES OF AWARENESS. SHE IS COMPLIANT WITH MEDS AND CAN MAKE ALL OF HER NEEDS KNOWN. WILL FOLLOW POC
[2020-05-09 10:31] VITALS: BP 116/68
--- NOTE | 2020-05-09 12:17 | PN ---
PATIENT:LAILA BUCKNER MEDICAL RECORD: [id number] LOCATION:[facility] ADMISSION DATE: 04/23/20 PROGRESS NOTE DATE OF SERVICE: 05/08/2020 SUBJECTIVE: The patient's case was discussed with staff. She has no new complaint. OBJECTIVE: The patient denies intent to harm herself or others. She does tolerate her medicines well. Long-term prognosis is guarded. She will be transitioned out of the hospital as soon as arrangements can be made. TRANSINT:[id number] Voice Confirmation ID: [id number] DOCUMENT ID: [id number] NIKIA RUIZ MD at 1217 CC: [id number] DICTATION DATE: 05/08/20 1559 FRATERNITY HOUSE COOK: 05/09/20 0049 ADM IN [id number] [place] [address]
[2020-05-09] MEDS ORDERED: ACETAMINOPHEN325 MG PO (14:19)
[2020-05-09] MEDS ORDERED: NORVASC10 MG PO (14:19)
[2020-05-09] MEDS ORDERED: LISINOPRIL10 MG PO (14:19)
[2020-05-09] MEDS ORDERED: PROTONIX40 MG PO (14:20)
[2020-05-09] MEDS ORDERED: ZYPREXA2.5 MG PO (14:20)
[2020-05-09] MEDS ORDERED: K-TAB10 MEQ PO (14:20)
[2020-05-09] MEDS ORDERED: FLORAJEN3 CAPS460 MG PO (14:21)
[2020-05-09] MEDS ORDERED: Eucerin CREAM TOPICAL (14:21)
[2020-05-09] MEDS ORDERED: LEVOTHYROXINE112 MCG PO (14:21)
[2020-05-09] MEDS ORDERED: REMOVE PATCH TD (14:21)
[2020-05-09] MEDS ORDERED: LIDODERM 5 %1 PATCH TRANSDERM (14:21)
--- NOTE | 2020-05-09 16:10 | NUR ---
PATIENT IS CONFUSED AT TIMES, BUT HAS AWARENESS AT OTHER TIMES. SHE CAN MAKE HER NEEDS KNOWN, COMPLIANT WITH TAKING MEDICATIONS. REDIRECT AND REORIENT NEEDED. WILL CONTINUE PLAN OF CARE.
[2020-05-09 20:04] VITALS: BP 95/56
--- NOTE | 2020-05-09 20:22 | NUR ---
RECEIVED PATIENT IN DAYROOM, SITTING ON COUCH EATING A SNACK, GOOD AFFECT. SMILING. SHE IS BEING DISCHARGED TOMORROW AND SHE IS AWARE, COMPLIANT WITH MEDS. WILL FOLLOW POC
--- NOTE | 2020-05-10 07:30 | NUR ---
The patient is awake and alert, she is pleasant and calm, she has poor insight into her situation. She is d/cing today to [facility]. Provide prescribed meds. Monitor mood and behavior. Get the patient ready to d/c. Fax d/c paperwork to her PCP. Continue POC.
[2020-05-10 09:55] VITALS: BP 152/56
--- NOTE | 2020-05-10 13:30 | NUR ---
Chely from [facility] is here to pick the patient up, provided the patient her belongings from the safe, and her clothes, meds escripted to [place], her appointment has been set up with her PCP. The patient is escorted with Chely and staff to her vehicle. The patient is now d/c'd from [facility].
--- NOTE | 2020-05-12 19:18 | PN ---
PATIENT:LAILA BUCKNER MEDICAL RECORD: [id number] LOCATION:[facility] ADMISSION DATE: 04/23/20 PROGRESS NOTE DATE OF SERVICE: 05/09/2020 SUBJECTIVE: The patient's case was discussed with staff. She has no new complaint. OBJECTIVE: The patient is in good behavioral control. She has poor insight about her situation. She is tolerating her medicines well. ASSESSMENT: Dementia. PLAN: [facility] and the financial piece is now in order. I will transition the patient to that facility in the morning. TRANSINT:[id number] Voice Confirmation ID: [id number] DOCUMENT ID: [id number] NIKIA RUIZ MD at 1918 CC: [id number] DICTATION DATE: 05/09/20 1418 THERMOCOUPLE TESTER: 05/09/20 1812 DIS IN 05/10/20 [facility] [address] [place] [address]
== END 2020-05-10 13:30 | disposition home or self-care (01) | DRG 57 ==
LOC: D.PSYCH 12:57
PROVIDERS: Family Medicine; ADMIT Psychiatry & Neurology Psychiatry; ATTEND Psychiatry & Neurology Psychiatry
DX: G30.9 Alzheimer's disease, unspecified (principal); F02.81 Dementia in other diseases classified elsewhere, unspecified severity, with behavioral disturbance; R64 Cachexia; K50.90 Crohn's disease, unspecified, without complications; N39.0 Urinary tract infection, site not specified; I10 Essential (primary) hypertension; E03.9 Hypothyroidism, unspecified; I65.29 Occlusion and stenosis of unspecified carotid artery; I70.213 Atherosclerosis of native arteries of extremities with intermittent claudication, bilateral legs; M19.90 Unspecified osteoarthritis, unspecified site; H40.9 Unspecified glaucoma; K21.9 Gastro-esophageal reflux disease without esophagitis; F41.9 Anxiety disorder, unspecified; E87.6 Hypokalemia

== ENCOUNTER 2020-08-20 07:49 | Day surgery (SDC) | payer MEDICARE, BC ==
[~2020-08-20] VITALS: Ht 162.6 cm; Wt 50.0 kg
--- NOTE | ~2020-08-20 | OP ---
PATIENT NAME: LAILA BUCKNER MEDICAL RECORD: [id number] :45 LOCATION:[facility] ADMISSION DATE: SURGEON: ALAN MOBLEY MD DATE OF OPERATION: 08/20/2020 PREOPERATIVE DIAGNOSES: 1. Nausea and vomiting. 2. History of peptic ulcer disease status post vagotomy and antrectomy with Billroth II anastomosis. 3. Hypertension. 4. Hypercholesterolemia. 5. Carotid artery stenosis. POSTOPERATIVE DIAGNOSES: 1. Nausea and vomiting. 2. History of peptic ulcer disease status post vagotomy and antrectomy with Billroth II anastomosis. 3. Hypertension. 4. Hypercholesterolemia. 5. Carotid artery stenosis. PROCEDURE: EGD with biopsy. SURGEON: Alan Mobley MD REPORT OF PROCEDURE: The patient was placed on her left side and an endoscope was advanced through the mouth and esophagus. As we were passing the scope, there was some reflux of bilious material into the distal esophagus and this was suctioned out. We passed through the GE junction and could immediately see that the patient's gastrojejunal anastomosis was widely open and patent with no signs of any masses, lesions, or strictures. I was able to pass the scope into the efferent and afferent lymphs at least 20 cm in each direction and saw no evidence of any masses, lesions, ulcerations or stenoses. So, pulled the scope back and I could investigate the patient's gastric body. There were no signs of any inflammatory changes. A random biopsy was taken of the gastric body near the gastrojejunal anastomosis. A retroflexed view showed that there was some laxity to the GE junction and no sign of a hiatal hernia. At this point, the scope was pulled back slowly and the insufflation was removed. We did not see any evidence, any masses, lesions or strictures in the esophagus. COMPLICATIONS: None. CONDITION: Stable. ANESTHESIA: TIVA. BLOOD LOSS: Minimal. TRANSINT:[id number] Voice Confirmation ID: [id number] DOCUMENT ID: [id number] OPERATIVE REPORT [id number] BUCKNERFRANCK PENAALAN AZAR MD CC: [id number] DICTATION DATE: 08/20/20 1119 SLEEVER: 08/20/20 1356 [facility] 08/20/20 [id number] [place] [address]
[~2020-08-20 07:49] MED LIST changes: +Eucerin CREAM TOPICAL; +FLORAJEN3 CAPS460 MG PO; +K-TAB10 MEQ PO; +LEVOTHYROXINE112 MCG PO; +LIDODERM 5 %1 PATCH TRANSDERM; +LISINOPRIL10 MG PO; +NORVASC10 MG PO; +REMOVE PATCH TD; +ZYPREXA2.5 MG PO
[2020-08-20 08:09] LABS: HEMOGLOBIN 13.6 g/dL (12-16); MCH 32.2 pg (26.0-34.0); MCHC 34.9 g/dL (31.0-37.0); MCV 92.2 fL (80.0-100.0); MEAN PLATELET VOLUME 9.9 fL (7.4-10.4); RBC 4.23 10x6/uL (4.00-5.40); RDW 13.2 % (11.5-14.5); WBC 11.6 10x3/uL (4.8-10.8)
[2020-08-20 09:20] VITALS: BP 171/72; Ht 162.6 cm; Wt 50.0 kg
== END 2020-08-20 12:20 | disposition home or self-care (01) ==
LOC: D.OPS 07:49
PROVIDERS: Anesthesiology; ATTEND Surgery
DX: R11.2 Nausea with vomiting, unspecified (principal); Z90.3 Acquired absence of stomach [part of]; I10 Essential (primary) hypertension; E78.00 Pure hypercholesterolemia, unspecified; I65.29 Occlusion and stenosis of unspecified carotid artery; K21.9 Gastro-esophageal reflux disease without esophagitis; K27.9 Peptic ulcer, site unspecified, unspecified as acute or chronic, without hemorrhage or perforation

== ENCOUNTER → 2021-05-01 09:40 | Outpatient (CLI) | payer MEDICARE, BC ==
[2020-08-20 09:20] VITALS: BMI 18.9
== END | disposition home or self-care (01) ==
LOC: D.CT 09:40
PROVIDERS: ATTEND Family Medicine
DX: R91.1 Solitary pulmonary nodule (principal)